=== PATIENT | male | born 1945 | race Caucasian/White ===

== ENCOUNTER 2023-05-18 00:35 | Emergency (ER) | payer OTHER, SELFPAY ==
[2023-05-18 00:36] VITALS: BMI 23.3
[2023-05-18 00:39] VITALS: BP 120/76
[2023-05-18 00:42] VITALS: BP 120/76
[2023-05-18 00:43] LABS: Glucose - Point of Care 178 mg/dl (70-99)
[2023-05-18 01:00] VITALS: BP 125/60
--- NOTE | 2023-05-18 01:08 | ED.GENMED ---
History of Present Illness
<SOCORRO Ayala - Last Filed: 05/18/23 01:25>
General
Chief Complaint: Weakness
Source: patient
Exam Limitations: none
Time Seen by Provider: 05/18/23 00:39
Nursing documentation reviewed up to this point in time: agreed with
Travel History
Have you had any contact with someone who has COVID-19?: No
Do you have any symptoms of coronavirus? Fever > 100 degrees, chills, cough, shortness of breath, sore throat, loss of taste or smell, muscle aches, or headache?: No
History of Present Illness
History of Present Illness:
patient is a 78 y/o male with PMH of pacemaker and pancreatic cancer presenting with weakness for the last few days. Patient states he fells a fully body weakness to the extent that it is difficult for him to walk. Patient admits to taking an
aspirin as 1pm yesterday with no relief. Patient admits to nausea with no episodes of vomiting. Patient admits to TAPIA associated that had mild relief with aspirin. Patient admits to dizziness that he describes as lightheadedness and feeling 'like he
is going to fall over.' Patient denies V/D/C, SOB, CP, fever, chills, palpitations. Patient admits that he had a Whipple procedure done 8 years ago. Since the time of the procedure he will have intermittent abdominal upset including irregular bowel
movements, increased gas and cramping. Patient admits that he has been having these symptoms earlier. patient has a long standing history with sepsis since his Whipple procedure and states there was a minor complication that makes his more
susceptible to bacteria.
Past History
<SOCORRO Ayala - Last Filed: 05/18/23 01:25>
Past History
ED Past Medical History: Cancer (Pancreatic, prostate), GERD, HTN, Hypercholesterolemia, IDDM and Other (Pancreatic tumor removed w Whipple procedure 2015)
ED Past Surgical History: Other (Whipple procedure 06/11/2015 at [facility]. 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
Social History
Tobacco: Former smoker
Alcohol: Daily
Drug: None
Personal:
Living: with family
Employment: Employed
Family History
Family History: Other (Noncontributory)
Review of Systems
<SOCORRO Ayala - Last Filed: 05/18/23 01:25>
Review of Systems
All Other Systems: Not applicable
Constitutional: Reports no symptoms
EENT: Reports no symptoms
Respiratory: Reports no symptoms
Cardiac: Reports no symptoms
ABD/GI: Reports nausea
: Reports no symptoms
Musculoskeletal: Reports no symptoms
Skin: Reports no symptoms
Neurological: Reports dizzy and weakness (generalized)
Endocrine: Reports no symptoms
Hematologic/Lymphatic: Reports no symptoms
Psychiatric: Reports no symptoms
Phy Exam
<SOCORRO Ayala - Last Filed: 05/18/23 01:25>
General Physical Exam
General Presentation: well appearing and no apparent distress
General Skin: warm and dry
General Habitus: normal
General Mental: alert
General Hydration: appears well hydrated
ENT Exam
ENT Exam: EOMI, pharynx normal, neck supple and normocephalic
Eye Exam
Eye Exam: PERRL, cornea clear and conjunctiva normal
Cardiovascular Exam
Cardiovascular Exam: regular rate/rhythm, no edema, no murmur and normal peripheral pulses
Pulmonary Exam
Pulmonary Exam: lungs clear, no respiratory distress, no rales, no crackles, no rhonchi, no stridor, no wheezing and no cough
Gastrointestinal Exam
Gastrointestinal Exam: normal bowel sounds, non tender, soft, no organomegaly, no pulsatile mass and non distended
Neurological Exam
Neurological Exam: alert, oriented x3, no motor deficits and speech normal
Musculoskeletal Exam
Musculoskeletal Exam: full ROM and no edema
Skin Exam
Skin Exam: normal color, warm/dry, no rash and no petechia
Psychiatric Exam
Psychiatric Exam: normal mood/affect
Course
<SOCORRO Ayala - Last Filed: 05/18/23 01:25>
Orders/Labs/Results
Orders:
Orders
05/18/23 00:40
Electrocardiogram (*1) Urgent
Reason for Study: Other
Other Reason for Exam: Possible Stroke
Bedside Glucose- Treatment ONCE
Cardiac Monitoring- Treatment ONCE
IV Insert/Care/Rem.- Treatment PRN
05/18/23 00:41
EKG- Treatment ONCE
05/18/23 00:55
Complete Blood Count/With Diff Urgent
Comprehensive Metabolic Panel Urgent
05/18/23 01:26
0.9% Sodium Chloride 1000 ml [Nss] 1,000 ml IV BOLUS
Acetaminophen [Tylenol] 1,000 mg PO NOW STA
05/18/23 01:34
COVID-19 Antigen Urgent
Source: Nasal Swab
Influenza A+B Rapid Molecular Urgent
BETSEY Source: Nasal Swab
Specimen Description:
05/18/23 01:38
CR Chest - 2 Views Urgent
Comment:
Reason For Exam: Weakness history of sepsis
05/18/23 01:41
Procalcitonin Urgent
PCT Algorithmm Indication: Sepsis
Blood Culture Q30M
BETSEY Source: Blood/Venous
Specimen Description:
05/18/23 02:01
Blood Culture Q30M
BETSEY Source: Blood/Venous
Specimen Description:
Abnormal Lab Results
05/18/23 05/18/23
00:41 00:55
RBC 4.01 L 10^6/uL
(4.70-6.10)
Hgb 12.6 L g/dL
(13.0-18.0)
Hct 38.4 L %
(39.0-52.0)
MCV 95.8 H fL
(80.0-94.0)
MCH 31.4 H pg
(27.0-31.0)
MCHC 32.8 L g/dL
(33.0-37.0)
MPV 11.2 H fL
(7.4-10.4)
BUN 22 H mg/dl
(9-20)
Glucose 199 H mg/dl
(70-99)
ALT 63 H U/L
(0-50)
POC Glucose 178 H mg/dl
(70-99)
05/18/23 00:55
05/18/23 00:55
Vital Signs
Initial and Last Documented VS:
Initial Vital Signs
BP
120/76
05/18/23 00:39
Last Documented Vital Signs
Temp Pulse Resp BP Pulse Ox
97.6 F 61 10 135/66 98
05/18/23 00:42 05/18/23 03:00 05/18/23 03:00 05/18/23 03:00 05/18/23 03:00
<Blayne Subramanian, DO - Last Filed: 05/18/23 03:11>
Orders/Labs/Results
Orders:
Orders
05/18/23 00:40
Electrocardiogram (*1) Urgent
Reason for Study: Other
Other Reason for Exam: Possible Stroke
Bedside Glucose- Treatment ONCE
Cardiac Monitoring- Treatment ONCE
IV Insert/Care/Rem.- Treatment PRN
05/18/23 00:41
EKG- Treatment ONCE
05/18/23 00:55
Complete Blood Count/With Diff Urgent
Comprehensive Metabolic Panel Urgent
05/18/23 01:26
0.9% Sodium Chloride 1000 ml [Nss] 1,000 ml IV BOLUS
Acetaminophen [Tylenol] 1,000 mg PO NOW STA
05/18/23 01:34
COVID-19 Antigen Urgent
Source: Nasal Swab
Influenza A+B Rapid Molecular Urgent
BETSEY Source: Nasal Swab
Specimen Description:
05/18/23 01:38
CR Chest - 2 Views Urgent
Comment:
Reason For Exam: Weakness history of sepsis
05/18/23 01:41
Procalcitonin Urgent
PCT Algorithmm Indication: Sepsis
Blood Culture Q30M
BETSEY Source: Blood/Venous
Specimen Description:
05/18/23 02:01
Blood Culture Q30M
BETSEY Source: Blood/Venous
Specimen Description:
Abnormal Lab Results
05/18/23 05/18/23
00:41 00:55
RBC 4.01 L 10^6/uL
(4.70-6.10)
Hgb 12.6 L g/dL
(13.0-18.0)
Hct 38.4 L %
(39.0-52.0)
MCV 95.8 H fL
(80.0-94.0)
MCH 31.4 H pg
(27.0-31.0)
MCHC 32.8 L g/dL
(33.0-37.0)
MPV 11.2 H fL
(7.4-10.4)
BUN 22 H mg/dl
(9-20)
Glucose 199 H mg/dl
(70-99)
ALT 63 H U/L
(0-50)
POC Glucose 178 H mg/dl
(70-99)
05/18/23 00:55
05/18/23 00:55
Vital Signs
Initial and Last Documented VS:
Initial Vital Signs
BP
120/76
05/18/23 00:39
Last Documented Vital Signs
Temp Pulse Resp BP Pulse Ox
97.6 F 61 10 135/66 98
05/18/23 00:42 05/18/23 03:00 05/18/23 03:00 05/18/23 03:00 05/18/23 03:00
<SOCORRO Ayala - Last Filed: 05/18/23 01:25>
MDM/Problems Addressed
Differential Diagnosis Includes:
sepsis
viral infection
MDM/Problems Addressed:
weakness
<Blayne Subramanian DO - Last Filed: 05/18/23 03:11>
MDM/Problems Addressed
Chronic conditions affecting care: Previous abdomnial surgery and Cancer
Acute Exacerbation and/or Progression of Chronic Illness: Previous abdomnial surgery and Cancer
<SOCORRO Ayala - Last Filed: 05/18/23 01:25>
*Critical Care Note
Total Time (30-74mins, 75-104mins- exclusive of procedures): Not Applicable
<Blayne Subramanian DO - Last Filed: 05/18/23 03:11>
*Pulse Oximetry
Patient hypoxic: no
*EKG
Interpreted by ED Provider?: Yes
Interpretation: abnormal
Comparison EKG: no comparison EKG present
Heart Rate: 78
Rate: normal
Rhythm: sinus
Ischemia: non-specific ST changes
*Supervisor Ovens Interpretation
Rate: normal
Interpretation: normal
Heart Rate: 78
Rhythm: sinus
<Blayne Subramanian DO - Last Filed: 05/18/23 03:11>
Update Note
Update Note:
3 AM patient resting comfortably, labs are noted chest x-ray noted of note normal white count he is afebrile low procalcitonin
Patient apparently did use of cannabis earlier today which certainly could be contributing to his weakness
ED Attending Note
<SOCORRO Ayala - Last Filed: 05/18/23 01:25>
-
Portions of this chart may have been created with voice recognition software.� Occasional wrong word or��sound alike� substitutions may have occurred due to the inherent limitations of voice recognition software.
<Blayne Subramanian DO - Last Filed: 05/18/23 03:11>
ED Attending Note
Patient seen and examined by attending physician: Yes
I performed the substantive portion of visit, reviewed & personally made and approve the management plan that is documented in note by myself or LARISSA.: Yes
ED Attending Note:
Seen with student examined independently prior records reviewed 78-year-old male history of pancreatic cancer status post Whipple procedure 8 years ago, has recurrent sepsis since then thought to be from the GI tract, immunized for COVID and flu the
had COVID about a month ago, day or 2 of fatigue, weakness body aches different than his prior episodes sepsis no cough no vomiting no dysuria or frequency no abdominal pain no documented fevers
Discharge Plan
Departure
Patient Disposition: Home (Routine Discharge)
Date of Disposition: 05/18/23
Time of Disposition: 03:09
Patient with high blood pressure during this ER visit?: No
Condition: Good
Discharge Problem:
Weakness
Instructions: Generalized Weakness (DC)
Prescriptions:
No Action
Metamucil Fiber Singles 1 PACKET powder in packet
1 packet PO NOON
rosuvastatin 5 MG tablet
5 mg PO DAILY
dicyclomine 10 MG capsule
10 mg PO BID
valsartan-hydrochlorothiazide [Diovan HCT] 80-12.5 mg Tablet
1 tab PO DAILY
Centrum Silver Men [phone] mcg Tablet
1 tab PO NOON
ibuprofen 200 mg Tablet
600 mg PO TIDPRN PRN (Reason: mild pain)
ketoconazole 2 % Cream
1 applic TOPICAL BID
simethicone 80 mg Tablet,Chewable
80 mg PO ACHS PRN (Reason: gas)
Creon 24,000-76,000 -120,000 unit Capsule,Delayed Release(Dr/Ec)
3 cap PO MEALS
ciprofloxacin HCl 500 mg Tablet
500 mg PO BID Qty: 8 0RF
Referrals:
Zach Lemos I., [Family Provider] - Next open appointment
Activity Restrictions/Additional Instructions:
Drink plenty of fluids Tylenol or ibuprofen for pain
Return to the ER fever chills or any other concerns
Interventions
Interventions:
*Risk Screen - Suicide Last Done: 05/18/23 00:42
*General Assessment Last Done: 05/18/23 00:42
*Neglect/Abuse Screening Last Done: 05/18/23 00:42
ED- Fall Risk Assessment Last Done: 05/18/23 00:42
*ED COVID-19 Vaccine History Last Done: 05/18/23 00:42
ED- Cardiac Assessment Last Done: 05/18/23 00:49
ED- Neurological Assessment Last Done: 05/18/23 00:49
ED- Pulmonary Assessment Last Done: 05/18/23 00:49
Discharge Date and Time
Print Language: HEBREW
[2023-05-18 01:16] LABS: % Basophils 1.1 % (0-2); % Eosinophils 3.8 % (0-6); % Immature Granulocytes 0.5 % (0-0.5); % Lymphocytes 45.6 % (20.5-51.1); % Monocytes 6.5 % (1.7-9.3); % Neutrophils 42.5 % (42.2-75.2); Absolute Basophils 0.1 10^3/uL (0-0.2); Absolute Eosinophils 0.3 10^3/uL (0-0.7); Absolute Monocytes 0.4 10^3/uL (0.1-0.6); Absolute Neutrophils 2.8 10^3/uL (1.4-6.5); Hematocrit 38.4 % (39.0-52.0); Hemoglobin 12.6 g/dL (13.0-18.0); Mean Corp Hgb Conc. 32.8 g/dL (33.0-37.0); Mean Corpuscular Hgb 31.4 pg (27.0-31.0); Mean Corpuscular Volume 95.8 fL (80.0-94.0); Mean Platelet Volume 11.2 fL (7.4-10.4); Nucleated Red Blood Cells % 0 % (-); Platelet Count 239 10^3/uL (130-400); Red Blood Cell Count 4.01 10^6/uL (4.70-6.10); Red Cell Dist. Width 13.2 % (11.5-14.5); White Blood Cell Count 6.6 10^3/uL (4.8-10.8)
[2023-05-18 01:25] LABS: ALT (SGPT) 63 U/L (0-50); AST (SGOT) 59 U/L (17-59); Albumin 3.9 g/dl (3.5-5.0); Alkaline Phosphatase 80 U/L (38-126); Blood Urea Nitrogen 22 mg/dl (9-20); Calcium 9.2 mg/dl (8.4-10.2); Carbon Dioxide 22 mmol/L (22-30); Chloride 104 mmol/L (98-107); Estimated Creatinine Clearance 61 ml/min; Glucose 199 mg/dl (70-99); Potassium 4.6 mmol/L (3.5-5.1); Sodium 138 mmol/L (135-145); Total Bilirubin 0.3 mg/dl (0.2-1.3); Total Protein 6.5 g/dl (6.3-8.2); eGFR > 60.00
[2023-05-18] MEDS: NSS 1000 IV (01:42)
[2023-05-18] MEDS: TYLENOL 1000 MG PO (01:43)
[2023-05-18 02:14] LABS: COVID-19 Antigen Negative (Negative)
[2023-05-18 02:16] VITALS: BP 137/66
[2023-05-18 02:24] LABS: Procalcitonin < 0.05 ng/ml (0.0-0.25)
[2023-05-18 03:00] VITALS: BP 135/66
[2023-05-18 03:09] VITALS: BP 142/73
== END 2023-05-18 03:38 | disposition home or self-care (01) ==
LOC: EMR 00:35
PROVIDERS: EMERGENCY PHYSICIAN Emergency Medicine; FAMILY PHYSICIAN Internal Medicine
DX: R53.1 Weakness (principal); K21.9 Gastro-esophageal reflux disease without esophagitis; I10 Essential (primary) hypertension; E78.00 Pure hypercholesterolemia, unspecified; E11.9 Type 2 diabetes mellitus without complications; Z85.820 Personal history of malignant melanoma of skin; Z87.891 Personal history of nicotine dependence; Z90.411 Acquired partial absence of pancreas; Z90.49 Acquired absence of other specified parts of digestive tract; Z90.79 Acquired absence of other genital organ(s); Z95.0 Presence of cardiac pacemaker
CPT/HCPCS: 99283; 96360; 71046; 80053; 82962; 84145; 85025; 87040; 87502; 87811; 93005

== ENCOUNTER → 2023-07-15 07:47 | Outpatient (REF) | payer OTHER, SELFPAY | LOC: HWRAD 07:47 | PROVIDERS: ATTENDING PHYSICIAN Internal Medicine | DX: R53.1 Weakness (principal); K86.89 Other specified diseases of pancreas; R10.13 Epigastric pain | CPT/HCPCS: 76700 ==

== ENCOUNTER 2023-07-19 19:46 | Inpatient (IN) | payer OTHER, SELFPAY ==
[2023-07-19 15:58] VITALS: BMI 25.9
[2023-07-19 16:00] VITALS: BP 144/74
[2023-07-19 17:01] LABS: % Basophils 0.6 % (0-2); % Eosinophils 0.3 % (0-6); % Immature Granulocytes 0.4 % (0-0.5); % Lymphocytes 11.4 % (20.5-51.1); % Monocytes 9.5 % (1.7-9.3); % Neutrophils 77.8 % (42.2-75.2); Absolute Lymphocytes 0.8 10^3/uL (1.2-3.4); Absolute Monocytes 0.7 10^3/uL (0.1-0.6); Absolute Neutrophils 5.3 10^3/uL (1.4-6.5); Mean Corp Hgb Conc. 33.3 g/dL (33.0-37.0); Mean Corpuscular Volume 92.9 fL (80.0-94.0); Mean Platelet Volume 11.9 fL (7.4-10.4); Nucleated Red Blood Cells % 0 % (-); Platelet Count 198 10^3/uL (130-400); Red Blood Cell Count 4.52 10^6/uL (4.70-6.10); Red Cell Dist. Width 13.2 % (11.5-14.5); White Blood Cell Count 6.9 10^3/uL (4.8-10.8)
[2023-07-19 17:08] LABS: Lactic Acid 1.7 mmol/L (0.7-2.0)
[2023-07-19 17:11] VITALS: BP 167/76
[2023-07-19 17:11] LABS: ALT (SGPT) 40 U/L (0-50); AST (SGOT) 49 U/L (17-59); Albumin 3.9 g/dl (3.5-5.0); Alkaline Phosphatase 84 U/L (38-126); Blood Urea Nitrogen 22 mg/dl (9-20); Calcium 8.9 mg/dl (8.4-10.2); Carbon Dioxide 24 mmol/L (22-30); Chloride 103 mmol/L (98-107); Glucose 206 mg/dl (70-99); Sodium 136 mmol/L (135-145); Total Bilirubin 0.6 mg/dl (0.2-1.3); Total Protein 6.5 g/dl (6.3-8.2); eGFR > 60.00
[2023-07-19] MEDS: TYLENOL 650 MG PO (17:47)
[2023-07-19 18:48] LABS: Urine Albumin Negative (Neg - Trace); Urine Bilirubin Negative (Negative); Urine Character Clear (Clear); Urine Color Yellow; Urine Glucose 3+ (Negative); Urine Ketone Negative (Negative); Urine Leukocyte Negative (Negative); Urine Nitrite Negative (Negative); Urine Occult Blood Trace (Negative); Urine Specific Gravity 1.015 (<1.030); Urine Urobilinogen Negative (Neg - 1+)
--- NOTE | 2023-07-19 18:49 | ED.GENMED ---
History of Present Illness
General
Chief Complaint: Fever
Source: patient
Exam Limitations: none
Time Seen by Provider: 07/19/23 17:01
Nursing documentation reviewed up to this point in time: agreed with
Travel History
Have you had any contact with someone who has COVID-19?: No
Do you have any symptoms of coronavirus? Fever > 100 degrees, chills, cough, shortness of breath, sore throat, loss of taste or smell, muscle aches, or headache?: No
History of Present Illness
History of Present Illness:
Patient presents to ED secondary to sudden onset of chills and not feeling well since yesterday. Patient reports fever 101 today. Denies coughing. Denies headache. Denies sore throat. Denies vomiting. Denies diarrhea. Denies rash. Denies
neck pain. Denies recent sick contact. Unfortunately, patient has had number of similar symptoms in the past, and treated for nonspecific sepsis, including February of this year.
Past History
Past History
ED Past Medical History: Cancer (Pancreatic, prostate), GERD, HTN, Hypercholesterolemia, IDDM and Other (Pancreatic tumor removed w Whipple procedure 2015)
ED Past Surgical History: Other (Whipple procedure 06/11/2015 at [facility]. 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
Social History
Tobacco: Former smoker
Alcohol: Daily
Drug: None
Personal:
Living: with family
Employment: Employed
Family History
Family History: Other (Noncontributory)
Review of Systems
Review of Systems
Allergies reviewed?: Yes
All Other Systems: ROS reviewed and negative except as documented in HPI and ROS
Constitutional: Reports fever and chills
EENT: Reports no symptoms
Respiratory: Reports no symptoms
Cardiac: Reports no symptoms
ABD/GI: Reports no symptoms
: Reports no symptoms
Musculoskeletal: Reports no symptoms
Skin: Reports no symptoms
Neurological: Reports no symptoms
Phy Exam
Physical Exam
Physical Exam:
Physical Exam
General: no apparent distress, not acutely ill. febrile.
Head: nc/at. eomi
Neck: supple. no meningeal signs.
Heart: s1/s2 regular rate and rhythm, no murmur. equal radial pulses.
Lungs: no acute respiratory distress. clear bilaterally
Abdomen: normal bowel sounds. not tender.
Neuro: alert and oriented. no focal neurological deficits
Skin: no rash
Psychiatric: well kept. interactive and cooperative
Extremities: no edema. no calf tenderness.
Course
Orders/Labs/Results
Orders:
Orders
07/19/23 16:09
Complete Blood Count/With Diff Urgent
Comprehensive Metabolic Panel Urgent
Lactate Level [Lactic Acid] Urgent
07/19/23 17:16
Blood Culture Q30M
BETSEY Source: Blood/Venous
Specimen Description:
Blood Culture Q30M
BETSEY Source: Blood/Venous
Specimen Description:
07/19/23 17:17
Urinalysis Reflex To Culture Urgent
Date Specimen was Collected: 07/19/23
Time Specimen was Collected: 17:15
Urine Microscopic Reflex Cult Urgent
07/19/23 17:33
Rectal Temp- Treatment ONCE
07/19/23 17:34
Acetaminophen [Tylenol] 650 mg PO NOW STA
07/19/23 18:53
0.9% Sodium Chloride 1000 ml [Nss] 1,000 ml IV BOLUS
CefTRIAXone [Rocephin] 1,000 mg IV NOW STA
07/19/23 19:28
CT Abd/pel W Iv And Oral Contr Routine
Reason For Exam: abdominal pain. with oral and IV contrast
07/19/23 19:29
Admit/Transfer Patient As Directed
Co-Sign Provider:
Level of Care: Inpatient admission
Assign to:: Medical/Surgical
Physician / Group: elva parker
Diagnosis: fever
Reason for Hospitalization: fever
Expected length of stay greater than two midnights?: Yes
ELOS- Estimated Length of Stay in days: 3
I certify the patient meets the requirements for IP care: Yes
07/19/23 19:30
Code Status As Directed
Resuscitation Status: Full Code
07/19/23 19:36
COVID-19 Antigen Stat
Source: Nasal Swab
Influenza A+B Rapid Molecular Stat
BETSEY Source: Nasal Swab
Specimen Description:
Abnormal Lab Results
07/19/23 07/19/23
16:09 17:17
RBC 4.52 L 10^6/uL
(4.70-6.10)
MPV 11.9 H fL
(7.4-10.4)
Absolute Lymphs (auto) 0.8 L 10^3/uL
(1.2-3.4)
Absolute Monos (auto) 0.7 H 10^3/uL
(0.1-0.6)
Neutrophils % 77.8 H %
(42.2-75.2)
Lymphocytes % 11.4 L %
(20.5-51.1)
Monocytes % 9.5 H %
(1.7-9.3)
BUN 22 H mg/dl
(9-20)
Glucose 206 H mg/dl
(70-99)
Ur Occult Blood Reflex Trace A
(Negative)
Urine RBC 3-6 A /HPF
(0-2)
Urine Bacteria (Reflex) Few A
(Negative)
Urine Glucose 3+ A
(Negative)
07/19/23 16:09
07/19/23 16:09
Vital Signs
Initial and Last Documented VS:
Initial Vital Signs
Temp Pulse Resp BP Pulse Ox
99.6 F 93 18 144/74 97
07/19/23 16:00 07/19/23 16:00 07/19/23 16:00 07/19/23 16:00 07/19/23 16:00
Last Documented Vital Signs
Temp Pulse Resp BP Pulse Ox
100.2 F 82 20 133/71 96
07/19/23 19:29 07/19/23 19:29 07/19/23 19:29 07/19/23 19:29 07/19/23 19:29
MDM/Problems Addressed
MDM/Problems Addressed:
History and exam concerning for recurrent bacteremia.
Discussed with (ID). Based on culture sensitivity from February 2023, recommend starting patient on Rocephin.
Blood culture pending
*Critical Care Note
Total Time (30-74mins, 75-104mins- exclusive of procedures): Not Applicable
ED Attending Note
-
Portions of this chart may have been created with voice recognition software.� Occasional wrong word or��sound alike� substitutions may have occurred due to the inherent limitations of voice recognition software.
Discharge Plan
Departure
Patient Disposition: Admit
Date of Disposition: 07/19/23
Time of Disposition: 19:05
Presentation/result/management discussed w/ accepting MD/DO: Hospitalist
Discharge Problem:
Fever
Interventions
Interventions:
*Risk Screen - Suicide Last Done: 07/19/23 16:00
*Neglect/Abuse Screening Last Done: 07/19/23 16:00
ED- Fall Risk Assessment Last Done: 07/19/23 19:30
*ED COVID-19 Vaccine History Last Done: 07/19/23 16:00
ED- Neurological Assessment Last Done: 07/19/23 19:30
ED-Skin Assessment Last Done: 07/19/23 19:30
[2023-07-19 18:58] LABS: Urine Bacteria Few (Negative); Urine White Cell 0-2 /HPF (0-5)
--- NOTE | 2023-07-19 19:11 | HPS.HSE ---
Addendum entered and electronically signed by Danielle Swanson MD 07/19/23 19:36:
see my update note for addendum
Original Note:
Family Physician
-
Family Physician: Zach Lemos
Chief Complaint
-
fever
generalized weakness
History of Present Illness
78-year-old with past medical history for pancreatic cancer, prostate cancer, GERD, hypertension, hyperlipidemia, diabetes presented to us with generalized weakness from yesterday. Today he started having chills shaking and fever of 101.6 at home.
Patient complained of headache. Denied dizziness or syncopal episode. Patient denied chest pain., Short of breath. Patient denied any abdominal pain, nausea, vomiting, diarrhea. Patient denied dysuria hematuria 3 weeks ago he had an mid
abdominal pain for a day, which now subsided.
Upon arrival noted to have fever 100.5. And administering ceftriaxone and fluids in ER. Admitting for further management
Medical History
Past Medical History
Past Medical History: Reports Other
Additional Past Medical History:
Hypertension
Neuropathy
Type 2 diabetes
Hyperlipidemia
Kidney stones
Sick sinus syndrome
Pancreatic cancer
-Prostate cancer
Past Surgical History: Reports Other
Additional Past Surgical History:
Pacemaker
Whipple procedure
Right lower lip granuloma excision
Melanoma removal
Cardiac ablation
Colon resection
Social History
Tobacco: Non-smoker
Alcohol: None
Drug: None
Personal:
Living: With Family
Family History
Family History: Not pertinent
Allergies / Home Medications
Allergies reflects when Allergies were last updated in [employer].
Home Medications with original date entered in [employer]
Allergy/Medication List:
Allergies
Allergy/AdvReac Type Severity Reaction Status Date / Time
No Known Allergies Allergy Verified 07/19/23 16:00
Home Medications
psyllium husk (aspartame) 3.4 gram oral powder packet (Metamucil Fiber Singles) 1 packet PO NOON Constipation 06/03/18
dicyclomine 10 mg capsule 10 mg PO BID Gastrointestinal issue 04/18/20
valsartan 80 mg-hydrochlorothiazide 12.5 mg tablet (Diovan HCT) 1 tab PO DAILY Blood pressure 05/29/22
nzindvgi-ah-rfkvu 300 mcg-K 60 mcg-lycop 600 mcg-lutein 300 mcg tablet (Centrum Silver Men) 1 tab PO NOON Supplement 11/09/22
ibuprofen 200 mg tablet 600 mg PO TIDPRN PRN mild pain 02/15/23
ketoconazole 2 % topical cream 1 applic topical BID apply to face 02/15/23
yvbsku-flwvmcsv-nplkzed 24,000-76,000-120,000 unit capsule,delayed rel (Creon) 3 cap PO MEALS Gastrointestinal Issue 02/15/23
simethicone 80 mg chewable tablet 80 mg PO ACHS PRN gas 02/15/23
Review of Systems
-
Constitutional: Reports Fever and Chills
EENT: Reports No Symptoms
Respiratory: Reports No Symptoms
Cardiac: Reports No Symptoms
Abdomen/GI: Reports No Symptoms
: Reports No Symptoms
Musculoskeletal: Reports No Symptoms
Skin: Reports No Symptoms
Neurological: Reports No Symptoms
Endocrine: Reports No Symptoms
Hematologic/Lymphatic: Reports No Symptoms
Psych: Reports No Symptoms
Physical Exam
Vital Signs
Vital Signs
Temp Pulse Resp BP Pulse Ox
102.5 F H 83 15 167/76 97
07/19/23 17:38 07/19/23 17:09 07/19/23 17:09 07/19/23 17:11 07/19/23 17:09
Physical Exam
General: Well Developed, Well Nourished and No Apparent Distress
HEENT: NormoCephalic, Moist mucous membranes and Atraumatic
Respiratory: Clear
Cardiac: S1/S2 and Regular Rhythm; No Murmur or Rub
GI: Soft, Non Tender, Non Distended and Normal Bowel Sounds; No Organomegaly
Rectal: Deferred by Provider
Musculoskeletal: No Clubbing, No Cyanosis and No Edema
Skin: No Rash
Neuro: AO x 3 and Nonfocal/grossly intact
Psych: Calm
Laboratory Results
-
07/19/23 16:09
07/19/23 16:09
Laboratory Results
Lactic Acid 1.7 mmol/L (0.7-2.0) 07/19/23 16:09
Total Bilirubin 0.6 mg/dl (0.2-1.3) 07/19/23 16:09
AST 49 U/L (17-59) 07/19/23 16:09
ALT 40 U/L (0-50) 07/19/23 16:09
Alkaline Phosphatase 84 U/L (38-126) 07/19/23 16:09
Data Reviewed
-
Lab Data: Labs Reviewed by me
Impression/Plan
-
# Fever unclear cause
-hxt of E coli bacteremia
-temp of 102.5
-UA negative
-blood culture sent from ER
-ceftriaxone continued
-Tylenol as needed for fever
#abdominal pain
-US Extremely limited study in part due to prior surgery and especially due to loop of bowel obscuring the organs of the upper abdomen including the liver. Cannot exclude right lobe hepatic space-occupying lesion versus geographic pattern of fatty
infiltration. Recommend CT or MRI for more complete evaluation.Prior cholecystectomy and known prior Whipple procedure. Pancreas, common bile duct, portions of liver and proximal abdominal aorta significantly obscured.
-obtain CT of abdomen pelvis with iv and oral contrast
-ctm
#pancreatic cancer s/p Whipple
- continue Creon
#Type 2 DM with hyperglycemia
- diet controlled
-Sliding scale
-Carb controlled diet
#prostate cancer s/p XRT
#GERD
#Essential HTN
-Valsartan/HCTZ continued
#hx of SVT s/p PPM
DVT ppx: Lovenox
Code: Full
[2023-07-19] MEDS: NSS 1000 IV ×2 (19:20→21:27)
[2023-07-19] MEDS: ROCEPHIN 1000 MG IV (19:20)
[2023-07-19 19:29] VITALS: BP 133/71
--- NOTE | 2023-07-19 19:36 | W.PN.UPDATE ---
Update Note
Progress Note Update
I saw and examined the patient.
The FINANCIAL SALES PROFESSIONAL Benny's note was reviewed and I agree with the note.
Comment: 78 y/o M hx of pancreatic cancer s/p Whipple, hx of prsotate cancer, GERD, HTN, HLD presents with weakness and fever. Fever of 101.6 associated with chills. He also reports headache. No other complaints. 1 week ago he did briefly have
mid-abdominal pain but that is now resolved.
In ER, he was found to have fever and was given IVF. ID was contacted and recommended Rocephin. Patient was previously admitted in February with bacteremia felt to be translocation in GI tract related to prior Whipples.
Physical Exam
General: Well Developed, Well Nourished and No Apparent Distress
HEENT: NormoCephalic, Moist mucous membranes and Atraumatic
Respiratory: Clear
Cardiac: S1/S2 and Regular Rhythm; No Murmur or Rub
GI: Soft, Non Tender, Non Distended and Normal Bowel Sounds; No Organomegaly
Rectal: Deferred by Provider
Musculoskeletal: No Clubbing, No Cyanosis and No Edema
Skin: No Rash
Neuro: AO x 3 and Nonfocal/grossly intact
Psych: Calm
Assessment/Plan: as per FINANCIAL SALES PROFESSIONAL Benny's note. Will continue IVF and IV Rocephin as per ID. consult ID. add urine culture for completeness. With recent Abd pain and US showing possible hepatic space occupying lesion, will obtain CT tonight. This is the 5th
or 6th occurrence of bacteremia for this patient since his Whipple's procedure; I recommended he follow up with ROGERIO (last visit was 5 years ago) to determine if any portal of entry of bacteria along Whipple operative sites that might be intervened
on.
[2023-07-19 20:12] LABS: COVID-19 Antigen Negative (Negative)
[2023-07-19 20:30] VITALS: BP 129/64
[2023-07-19] MEDS: OMNIPAQUE 50 ML PO (20:32)
[2023-07-19 21:16] VITALS: BMI 22.6
[2023-07-19 21:20] VITALS: BP 142/71
[2023-07-19] MEDS: BENTYL 10 MG PO (21:27)
[2023-07-19 21:28] LABS: Glucose - Point of Care 194 mg/dl (70-99)
[2023-07-19] MEDS: NIZORAL 2% CREAM 1 APPLIC TOPICAL (22:28)
[2023-07-19 23:08] VITALS: BP 146/72
--- NOTE | 2023-07-20 06:06 | W.PN.HOSP.TC ---
Today's Communication/Plan
-
cont abx
follow up culture sensitivities
repeat blood cultures
fever control
glycemic control
Assessment / Plan
Assessment / Plan
Physical Exam
General: Well Developed, Well Nourished and No Apparent Distress
HEENT: NormoCephalic, Moist mucous membranes and Atraumatic
Respiratory: Clear
Cardiac: S1/S2 and Regular Rhythm; No Murmur or Rub
GI: Soft, Non Tender, Non Distended and Normal Bowel Sounds; No Organomegaly
Musculoskeletal: No Clubbing, No Cyanosis and No Edema
Skin: No Rash
Neuro: AO x 3 and Nonfocal/grossly intact
Psych: Calm
HPI: 78M Hx pancreatic cancer s/p Whipple, prostate cancer, GERD, hypertension, hyperlipidemia, NIDDM p/w generalized weakness 1 day duration, chills, shaking and fever of 101.6 at home. Patient also reported headache. Denied dizziness, syncopal
episode, chest pain, shortness of breath, abdominal pain, nausea, vomiting, diarrhea, dysuria, or hematuria. ED evaluation noted fever high 102.5, no significant leukocytosis noted.
# Fever 2/2 E coli bacteremia
-temp high 102.5 since resolved
-UA negative
-blood culture appreciated prelim E. coli, repeat blood cultures obtained
-Tylenol as needed for fever
-ID eval appreciated, 5th GNR bacteremia since Whipple procedure 2016, cont ceftriaxone, follow up with [facility] surgeons recommended.
#abdominal pain resolved
-US Extremely limited study in part due to prior surgery and especially due to loop of bowel obscuring the organs of the upper abdomen including the liver. Cannot exclude right lobe hepatic space-occupying lesion versus geographic pattern of fatty
infiltration. Recommend CT or MRI for more complete evaluation.Prior cholecystectomy and known prior Whipple procedure. Pancreas, common bile duct, portions of liver and proximal abdominal aorta significantly obscured.
-CT abd/pelvis appreciated no acute abn's
-ctm
#pancreatic cancer s/p Whipple
- continue Creon
#Type 2 DM with hyperglycemia
-A1c 7.4
-Sliding scale
-Carb controlled diet
#prostate cancer s/p XRT
#GERD
#Essential HTN
-Valsartan/HCTZ continued
#hx of SVT s/p PPM
DVT ppx: Lovenox
Code: Full
I spent a total of 55 minutes with the patient or on the floor. More than 50% of this time involved counseling and coordination of care.
Anticipated Discharge: 24 - 48 hours
Subjective/Interval History
-
Date of Service: July 20, 2023
Seen and examined at bedside in no acute distress sitting up comfortably in bed. Denies new acute issues at this time. Overall reports feeling well.
Objective Data
-
Labs:
Laboratory Results
07/20/23
06:00
WBC Pending
Hgb Pending
Hct Pending
Plt Count Pending
Sodium Pending
Potassium Pending
Chloride Pending
Carbon Dioxide Pending
BUN Pending
Creatinine Pending
Glucose Pending
Calcium Pending
Vital Signs:
Vital Signs
Temp Pulse Resp BP Pulse Ox
98.1 F 74 18 146/72 99
07/19/23 23:08 07/19/23 23:08 07/19/23 23:08 07/19/23 23:08 07/19/23 23:08
--- NOTE | 2023-07-20 06:39 | PTCARENOTE ---
Essence Leo [employer]UMENT [employer] notified of blood culture results. Cultures positive for gram negative bacilli.
[2023-07-20 06:43] LABS: Hematocrit 36.2 % (39.0-52.0); Hemoglobin 12.6 g/dL (13.0-18.0); Mean Corp Hgb Conc. 34.8 g/dL (33.0-37.0); Mean Corpuscular Hgb 31.1 pg (27.0-31.0); Mean Corpuscular Volume 89.4 fL (80.0-94.0); Mean Platelet Volume 11.5 fL (7.4-10.4); Platelet Count 161 10^3/uL (130-400); Red Blood Cell Count 4.05 10^6/uL (4.70-6.10); Red Cell Dist. Width 13.2 % (11.5-14.5); White Blood Cell Count 5.2 10^3/uL (4.8-10.8)
[2023-07-20 07:02] LABS: Blood Urea Nitrogen 18 mg/dl (9-20); Calcium 8.2 mg/dl (8.4-10.2); Carbon Dioxide 23 mmol/L (22-30); Chloride 107 mmol/L (98-107); Estimated Creatinine Clearance 74 ml/min; Glucose 142 mg/dl (70-99); Sodium 137 mmol/L (135-145); eGFR > 60.00
[2023-07-20 07:07] VITALS: BP 143/90
[2023-07-20 07:35] LABS: Glucose - Point of Care 145 mg/dl (70-99)
[2023-07-20] MEDS: NOVOLOG FLEXPEN-LOW RESISTANCE SC (08:28)
[2023-07-20] MEDS: DIOVAN 80 MG PO (08:55)
[2023-07-20] MEDS: BENTYL 10 MG PO ×2 (08:55→20:19)
[2023-07-20] MEDS: ZENPEP DELAYED RELEASE CAPSULE 3 CAPSULE PO ×3 (08:55→17:17)
[2023-07-20] MEDS: ORETIC 12.5 MG PO (08:55)
[2023-07-20] MEDS: NIZORAL 2% CREAM TOPICAL ×2 (08:56→20:18)
--- NOTE | 2023-07-20 09:24 | CON.ID ---
Consultation
-
Date/Time Consultation Requested: 07/19/2023 2109
Date/Time Consultation Performed: 07/20/2023 1220
Requesting Provider: Dr. Louann Slaughter
Performing Provider: Dr. Priti Osullivan
Reason for Consultation: Chills, hx recurrent GNR bacteremia
Chief Complaint / Past History
Chief Complaint
fever and chills
History of Present Illness
87 year old with history of pancreatic cancer s/p Whipple, prostate cancer s/p XRT, pacemaker placement, recurrent GNR bacteremia who presented to ED last night due to 1 day history of shaking chills, ,malaise, fever 101. Had episode of abdominal
pain last week with normal abd US. No change in bowel habits. No nausea or vomiting. Pt reports he has not followed up at [facility] regarding these recurrent GNR bacteremia since Whipple procedure. T=102.5 in ED. Ceftriaxone started.
Past History
Additional Past Medical History:
(pancreatic cancer s/p Whipple, IDDM, prostate cancer s/p XRT, GERD, HTN, HLD, hx of SVT
Additional Past Surgical History:
IDDM
Neuropathy
SVT s/p Pacemaker
Pancreatic CA s/p Whipple 2016 at [facility]
H/o Klebsiella/Aeromonas bacteremia 2019; 3 Klebsiella bacteremia 04/14/17; E coli bacteremia 2017, 02/2023, 07/2023
Diverticulitis and is status post bowel resection for diverticulitis (2000)
HTN
HLD
nephrolithiasis
Melanoma excision
Prostate CA s/p XRT
Right hip fracture gamma nailing
Allergy History:
No Known Allergies Allergy (Verified 07/19/23 16:00)
Medications Reviewed: Yes
Current Antibiotics:
ceftriaxone
Social History
Tobacco: Former Smoker
Alcohol: None
Drug: None
Personal:
Family History
Family History: Not Pertinent
Review of Systems
Review of Systems
General: Fever, Chills and Change in Appetite
HEENT: Negative Sinus Problems or Headache
Cardiovascular: Negative Chest Pain
Respiratory: Negative Dyspnea or Cough
Gasteroenterology: Negative Nausea or Vomiting
Genital / Urological: Negative Dysuria or Flank Pain
Endocrine: Weakness
Skin / Hair / Nails: Negative Rash
Neurological: Negative Headache or Dizziness
Vital Signs
Temp Pulse Resp BP Pulse Ox
97.4 F 82 16 143/90 98
07/20/23 07:07 07/20/23 07:07 07/20/23 07:07 07/20/23 07:07 07/20/23 07:07
Selected Entries
07/19/23
17:38
Temp 102.5 F H
Physical Exam
Physical Exam
Constitutional: No Acute Distress and Comfortable
Cardiovascular: Regular Rate and S1/S2
Pulmonary: Clear
Gastrointestinal: Soft, Non Tender, Non Distended and Normal Bowel Sounds
Genito-Urinary: Negative CVA Tenderness
Extremities: Negative Edema
Musculoskeletal: Negative Spinal Tenderness
Neurological: AO x 3
Lab / Diagnostic Study Results
07/20/23 06:20
07/20/23 06:20
Abs Immat Gran (auto) 0.0 10^3/uL (0-0.05) 07/19/23 16:09
Absolute Neuts (auto) 5.3 10^3/uL (1.4-6.5) 07/19/23 16:09
Absolute Lymphs (auto) 0.8 10^3/uL (1.2-3.4) L 07/19/23 16:09
Absolute Monos (auto) 0.7 10^3/uL (0.1-0.6) H 07/19/23 16:09
Absolute Basos (auto) 0.0 10^3/uL (0-0.2) 07/19/23 16:09
Immature Gran % 0.4 % (0-0.5) 07/19/23 16:09
Neutrophils % 77.8 % (42.2-75.2) H 07/19/23 16:09
Lymphocytes % 11.4 % (20.5-51.1) L 07/19/23 16:09
Monocytes % 9.5 % (1.7-9.3) H 07/19/23 16:09
Eosinophils % 0.3 % (0-6) 07/19/23 16:09
Basophils % 0.6 % (0-2) 07/19/23 16:09
Lactic Acid 1.7 mmol/L (0.7-2.0) 07/19/23 16:09
Ur Squamous Epith Cells 3-5 /LPF (Few) 07/19/23 17:17
Microbiology Results
Micro:
07/19/23 17:16 Blood Culture - Preliminary
Blood/Venous Positive culture in progress
Gram Stain - Final
07/19/23 17:16 Blood Culture - Preliminary
Blood/Venous Positive culture in progress
Gram Stain - Preliminary
07/19/23 17:17 Urine Culture - Pending
Urine
07/19/23 19:36 Influenza Types A & B (JAZ) - Final
Nasal Swab Negative for Influenza A & B, NAAT
Negative results must be combined with clinical observations
and patient history.
Nucleic Acid Amplification test (NAAT)performed on the
[employer] platform.
07/19/23 CT a/p with IV and oral contrast: No CT evidence for an acute inflammatory process in the abdomen or pelvis. Stable chronic findings, as detailed above.
Assessment / Plan
# Fever
# Recurrent E. coli bacteremia
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
- 2016, 2018 Colonoscopies mild diverticulosis, 2 small polyps
- Suspect biliary/Whipple source with intermittent obstruction/spasms
- Recommend he follow-up at [facility] surgeons for re-evaluation
-Continue ceftriaxone for now.
-Repeat blood cx's.
[2023-07-20 09:42] LABS: Glycohemoglobin (HgbA1c) 7.4 % (4.0-5.6)
--- NOTE | 2023-07-20 10:37 | PTCARENOTE ---
Notified provider via TT of patient's positive BC results.
[2023-07-20] MEDS: METAMUCIL, KONSYL 1 PACKET PO (10:40)
[2023-07-20] MEDS: NSS 1000 IV ×2 (10:40→22:15)
[2023-07-20 11:46] LABS: Glucose - Point of Care 196 mg/dl (70-99)
[2023-07-20] MEDS: NOVOLOG FLEXPEN-LOW RESISTANCE 1 UNITS SC ×2 (12:58→17:18)
--- NOTE | 2023-07-20 14:59 | CM ---
Met with patient at bedside; initial assessment completed
Hx: Pancreatic CA, Whipple Procedure
Pharmacy verified: [facility], [facility], [place]
Patient reported that he and live in a multilevel home; daughter and 2 grandchildren currently living with them. 1 step to enter; 13 steps between floors; railings present; powder room on the 1st floor; 2nd floor bath has Stall shower
PLOF: active; performs in community theatre; independent w/ ambulation, stairs, and ADLs; drives
SNF/Rehab/Home Health utilization history: rehab [facility] 05/2022; [facility]
Transportation: will provide ride home
Plan: Goal is to go home when medically stable; CM will monitor for DC needs
[2023-07-20 16:01] VITALS: BP 159/78
[2023-07-20 16:48] LABS: Glucose - Point of Care 176 mg/dl (70-99)
[2023-07-20] MEDS: ROCEPHIN 1000 MG IV (17:17)
[2023-07-20] MEDS: LOVENOX 40 MG SC (17:17)
[2023-07-20] MEDS: STERILE WATER FOR INJECTION 10 ML IV (17:18)
[2023-07-20 21:25] LABS: Glucose - Point of Care 235 mg/dl (70-99)
[2023-07-20 23:00] VITALS: BP 140/63
[2023-07-21 07:00] VITALS: BP 145/71
[2023-07-21 07:35] LABS: Hematocrit 33.1 % (39.0-52.0); Hemoglobin 11.2 g/dL (13.0-18.0); Mean Corp Hgb Conc. 33.8 g/dL (33.0-37.0); Mean Corpuscular Hgb 30.9 pg (27.0-31.0); Mean Corpuscular Volume 91.4 fL (80.0-94.0); Mean Platelet Volume 11.5 fL (7.4-10.4); Platelet Count 152 10^3/uL (130-400); Red Blood Cell Count 3.62 10^6/uL (4.70-6.10); White Blood Cell Count 4.6 10^3/uL (4.8-10.8)
[2023-07-21 07:47] LABS: Glucose - Point of Care 142 mg/dl (70-99)
[2023-07-21 07:47] LABS: Blood Urea Nitrogen 15 mg/dl (9-20); Calcium 7.9 mg/dl (8.4-10.2); Carbon Dioxide 23 mmol/L (22-30); Chloride 108 mmol/L (98-107); Estimated Creatinine Clearance 74 ml/min; Glucose 127 mg/dl (70-99); Potassium 3.6 mmol/L (3.5-5.1); Sodium 136 mmol/L (135-145); eGFR > 60.00
--- NOTE | 2023-07-21 07:53 | W.PN.HOSP.TC ---
Today's Communication/Plan
-
cont abx
Tylenol prn headache/pain
follow E. coli sensitivities, cultures
glycemic control
Assessment / Plan
Assessment / Plan
Physical Exam
General: Well Developed, Well Nourished and No Apparent Distress
HEENT: NormoCephalic, Moist mucous membranes and Atraumatic
Respiratory: Clear
Cardiac: S1/S2 and Regular Rhythm; No Murmur or Rub
GI: Soft, Non Tender, Non Distended and Normal Bowel Sounds; No Organomegaly
Musculoskeletal: No Clubbing, No Cyanosis and No Edema
Skin: No Rash
Neuro: AO x 3 and Nonfocal/grossly intact
Psych: Calm
HPI: 78M Hx pancreatic cancer s/p Whipple, prostate cancer, GERD, hypertension, hyperlipidemia, NIDDM p/w generalized weakness 1 day duration, chills, shaking and fever of 101.6 at home. Patient also reported headache. Denied dizziness, syncopal
episode, chest pain, shortness of breath, abdominal pain, nausea, vomiting, diarrhea, dysuria, or hematuria. ED evaluation noted fever high 102.5, no significant leukocytosis noted.
# Fever 2/2 E coli bacteremia
-temp high 102.5 since resolved
-UA negative
-blood culture appreciated prelim E. coli, repeat blood cultures NGTD
-Tylenol as needed for fever/headacge
-ID eval appreciated, 5th GNR bacteremia since Whipple procedure 2016, cont ceftriaxone, follow up with [facility] surgeons recommended.
#abdominal pain resolved
-US Extremely limited study in part due to prior surgery and especially due to loop of bowel obscuring the organs of the upper abdomen including the liver. Cannot exclude right lobe hepatic space-occupying lesion versus geographic pattern of fatty
infiltration. Recommend CT or MRI for more complete evaluation.Prior cholecystectomy and known prior Whipple procedure. Pancreas, common bile duct, portions of liver and proximal abdominal aorta significantly obscured.
-CT abd/pelvis appreciated no acute abn's
-ctm
#pancreatic cancer s/p Whipple
- continue Creon
#Type 2 DM with hyperglycemia
-A1c 7.4
-Sliding scale
-Carb controlled diet
#prostate cancer s/p XRT
#GERD
#Essential HTN
-Valsartan/HCTZ continued
#hx of SVT s/p PPM
DVT ppx: Lovenox
Code: Full
I spent a total of 55 minutes with the patient or on the floor. More than 50% of this time involved counseling and coordination of care.
Anticipated Discharge: 24 - 48 hours
Subjective/Interval History
-
Date of Service: July 21, 2023
Seen and examined at bedside in no acute distress. Reports mild moderate headache
Objective Data
-
Labs:
Laboratory Results
07/21/23
05:57
WBC 4.6 L
Hgb 11.2 L
Hct 33.1 L
Plt Count 152
Sodium 136
Potassium 3.6
Chloride 108 H
Carbon Dioxide 23
BUN 15
Creatinine 0.8
Glucose 127 H
Calcium 7.9 L
Vital Signs:
Vital Signs
Temp Pulse Resp BP Pulse Ox
97.9 F 62 18 140/63 97
07/20/23 23:00 07/20/23 23:00 07/20/23 23:00 07/20/23 23:00 07/20/23 23:00
I&O
07/20/23 07/21/23 07/22/23
06:59 06:59 06:59
Intake Total 1100 / 1100
Balance 1100 / 1100
[2023-07-21] MEDS: NOVOLOG FLEXPEN-LOW RESISTANCE SC (08:20)
[2023-07-21] MEDS: ZENPEP DELAYED RELEASE CAPSULE 3 CAPSULE PO ×3 (08:21→17:30)
[2023-07-21] MEDS: ORETIC 12.5 MG PO (08:22)
[2023-07-21] MEDS: METAMUCIL, KONSYL 1 PACKET PO (08:22)
[2023-07-21] MEDS: DIOVAN 80 MG PO (08:22)
[2023-07-21] MEDS: BENTYL 10 MG PO ×2 (08:22→20:57)
[2023-07-21] MEDS: NIZORAL 2% CREAM 1 APPLIC TOPICAL (08:23)
[2023-07-21 12:27] LABS: Glucose - Point of Care 237 mg/dl (70-99)
[2023-07-21] MEDS: NOVOLOG FLEXPEN-LOW RESISTANCE 2 UNITS SC (12:39)
--- NOTE | 2023-07-21 14:57 | W.PN.ID1 ---
Date of Service
Date of Service: July 21, 2023
Today's Communication
-Continue ceftriaxone for now pending susceptibility.
- Anticipate dc home tomorrow.
Assessment / Plan
# Fever resolved
# Recurrent E. coli bacteremia
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
- 2016, 2018 Colonoscopies mild diverticulosis, 2 small polyps
- Suspect biliary/Whipple source with intermittent obstruction/spasms
- Recommend he follow-up at [facility] surgeons for re-evaluation
- Repeat blood cx's neg to date.
-Continue ceftriaxone for now pending susceptibility.
- Anticipate dc home tomorrow.
#Additional Past Medical History:
IDDM
Neuropathy
SVT s/p Pacemaker
Pancreatic CA s/p Whipple 2016 at [facility]
H/o Klebsiella/Aeromonas bacteremia 2019; 3 Klebsiella bacteremia 04/14/17; E coli bacteremia 2017, 02/2023, 07/2023
Diverticulitis and is status post bowel resection for diverticulitis (2000)
HTN
HLD
nephrolithiasis
Melanoma excision
Prostate CA s/p XRT
Right hip fracture gamma nailing
Chief Complaint
-: Bacteremia
Subjective / Review of Systems
Feeling better today.
Vital Signs / Physical Exam
Vital Signs
Vital Signs
Temp Pulse Resp BP Pulse Ox
98.0 F 65 18 145/71 96
07/21/23 07:00 07/21/23 08:22 07/21/23 07:00 07/21/23 08:22 07/21/23 07:00
Physical Exam
Constitutional: No Acute Distress and Comfortable
Cardiovascular: Regular Rate, S1/S2 and Other (PPM site no erythema/induration)
Pulmonary: Clear
Gastrointestinal: Soft, Non Tender and Non Distended
Extremities: Negative Edema
Neurological: AO x 3
Objective Data
Lab Data
Lab Results
07/21/23 05:57
07/21/23 05:57
Estimated Creat Clear 74 ml/min 07/21/23 05:57
Lactic Acid 1.7 mmol/L (0.7-2.0) 07/19/23 16:09
Total Bilirubin 0.6 mg/dl (0.2-1.3) 07/19/23 16:09
AST 49 U/L (17-59) 07/19/23 16:09
ALT 40 U/L (0-50) 07/19/23 16:09
Alkaline Phosphatase 84 U/L (38-126) 07/19/23 16:09
Most recent labs reviewed.
Micro Results:
07/20/23 12:39 Blood Culture - Preliminary
Blood/Venous No Growth in 24 hours- Final report to follow
07/20/23 12:15 Blood Culture - Preliminary
Blood/Venous No Growth in 24 hours- Final report to follow
07/19/23 17:17 Urine Culture - Final
Urine NO GROWTH
07/19/23 17:16 Blood Culture - Preliminary
Blood/Venous Escherichia coli
Gram Stain - Final
07/19/23 17:16 Blood Culture - Preliminary
Blood/Venous Escherichia coli
Gram Stain - Preliminary
07/19/23 19:36 Influenza Types A & B (JAZ) - Final
Nasal Swab Negative for Influenza A & B, NAAT
Negative results must be combined with clinical observations
and patient history.
Nucleic Acid Amplification test (NAAT)performed on the
[employer] platform.
07/19/23 CT a/p with IV and oral contrast: No CT evidence for an acute inflammatory process in the abdomen or pelvis. Stable chronic findings, as detailed above.
[2023-07-21 15:00] VITALS: BP 138/68
[2023-07-21 17:07] LABS: Glucose - Point of Care 273 mg/dl (70-99)
[2023-07-21] MEDS: STERILE WATER FOR INJECTION 10 ML IV (17:30)
[2023-07-21] MEDS: NOVOLOG FLEXPEN-LOW RESISTANCE 3 UNITS SC (17:30)
[2023-07-21] MEDS: ROCEPHIN 1000 MG IV (17:30)
[2023-07-21] MEDS: LOVENOX 40 MG SC (17:30)
[2023-07-21] MEDS: NIZORAL 2% CREAM TOPICAL (20:49)
[2023-07-21 21:17] LABS: Glucose - Point of Care 307 mg/dl (70-99)
[2023-07-21 23:41] VITALS: BP 152/82
[2023-07-22 07:00] VITALS: BP 127/61
[2023-07-22 07:26] LABS: Hematocrit 36.6 % (39.0-52.0); Hemoglobin 12.5 g/dL (13.0-18.0); Mean Corp Hgb Conc. 34.2 g/dL (33.0-37.0); Mean Corpuscular Hgb 30.9 pg (27.0-31.0); Mean Corpuscular Volume 90.6 fL (80.0-94.0); Mean Platelet Volume 11.2 fL (7.4-10.4); Platelet Count 169 10^3/uL (130-400); Red Blood Cell Count 4.04 10^6/uL (4.70-6.10); Red Cell Dist. Width 12.7 % (11.5-14.5); White Blood Cell Count 5.7 10^3/uL (4.8-10.8)
[2023-07-22 07:35] LABS: Glucose - Point of Care 163 mg/dl (70-99)
[2023-07-22 07:38] LABS: Blood Urea Nitrogen 17 mg/dl (9-20); Calcium 8.8 mg/dl (8.4-10.2); Carbon Dioxide 23 mmol/L (22-30); Chloride 105 mmol/L (98-107); Estimated Creatinine Clearance 74 ml/min; Glucose 158 mg/dl (70-99); Potassium 3.9 mmol/L (3.5-5.1); Sodium 136 mmol/L (135-145); eGFR > 60.00
[2023-07-22] MEDS: TYLENOL 650 MG PO (07:55)
[2023-07-22] MEDS: METAMUCIL, KONSYL 1 PACKET PO (07:59)
[2023-07-22] MEDS: NOVOLOG FLEXPEN-LOW RESISTANCE 1 UNITS SC (08:01)
[2023-07-22] MEDS: NIZORAL 2% CREAM TOPICAL (08:04)
[2023-07-22] MEDS: DIOVAN 80 MG PO (08:05)
[2023-07-22] MEDS: ORETIC 12.5 MG PO (08:05)
[2023-07-22] MEDS: ZENPEP DELAYED RELEASE CAPSULE 3 CAPSULE PO (08:05)
[2023-07-22] MEDS: BENTYL 10 MG PO (08:05)
--- NOTE | 2023-07-22 08:55 | W.PN.HOSP.TC ---
Today's Communication/Plan
-
discharge after IV antibiotics today
Assessment / Plan
Assessment / Plan
Physical Exam
General: Well Developed, Well Nourished and No Apparent Distress
HEENT: NormoCephalic, Moist mucous membranes and Atraumatic
Respiratory: Clear
Cardiac: S1/S2 and Regular Rhythm; No Murmur or Rub
GI: Soft, Non Tender, Non Distended and Normal Bowel Sounds; No Organomegaly
Musculoskeletal: No Clubbing, No Cyanosis and No Edema
Skin: No Rash
Neuro: AO x 3 and Nonfocal/grossly intact
Psych: Calm
HPI: 78M Hx pancreatic cancer s/p Whipple, prostate cancer, GERD, hypertension, hyperlipidemia, NIDDM p/w generalized weakness 1 day duration, chills, shaking and fever of 101.6 at home. Patient also reported headache. Denied dizziness, syncopal
episode, chest pain, shortness of breath, abdominal pain, nausea, vomiting, diarrhea, dysuria, or hematuria. ED evaluation noted fever high 102.5, no significant leukocytosis noted.
# Fever 2/2 E coli bacteremia
-temp high 102.5 since resolved
-UA negative
-blood culture appreciated E. coli pansensitive, repeat blood cultures NGTD
-Tylenol as needed for fever/headacge
-ID eval appreciated, 5th GNR bacteremia since Whipple procedure 2015, ceftriaxone to transition to cefuroxime 500 mg BID through 07/31, follow up with [facility] surgeons recommended.
#abdominal pain resolved
-US Extremely limited study in part due to prior surgery and especially due to loop of bowel obscuring the organs of the upper abdomen including the liver. Cannot exclude right lobe hepatic space-occupying lesion versus geographic pattern of fatty
infiltration. Prior cholecystectomy and known prior Whipple procedure. Pancreas, common bile duct, portions of liver and proximal abdominal aorta significantly obscured.
-CT abd/pelvis appreciated no acute abn's
-ctm
#pancreatic cancer s/p Whipple
- continue Creon
#Type 2 DM with hyperglycemia
-A1c 7.4
-Sliding scale
-Carb controlled diet
-outpatient follow up primary
#prostate cancer s/p XRT
#GERD
#Essential HTN
-Valsartan/HCTZ continued
#hx of SVT s/p PPM
DVT ppx: Lovenox
Code: Full
Medically stable for discharge home today (after IV abx) with outpatient follow up recommendations.
discussed with patient, infectious disease, and nurse
Total Time Preparing Discharge ___50____ minutes including examination of the patient, summary of the hospital stay, instructions for continuing care to all relevant caregivers; and preparation of discharge records, prescriptions, and referral
forms if necessary.
Anticipated Discharge: Today
Subjective/Interval History
-
Date of Service: July 22, 2023
Seen and examined at bedside in no acute distress sitting up comfortably in bed. Headache resolved. Discussed hyperglycemia, patient endorses having insulin at home able to manage on his own. Discussed potentially starting oral diabetic
medications such as Metformin. Patient declined in favor of outpatient follow up with his primary to further consider. Otherwise denies reports feeling well, denies new acute issues, eager to go home.
Objective Data
-
Labs:
Laboratory Results
07/22/23
07:01
WBC 5.7
Hgb 12.5 L
Hct 36.6 L
Plt Count 169
Sodium 136
Potassium 3.9
Chloride 105
Carbon Dioxide 23
BUN 17
Creatinine 0.8
Glucose 158 H
Calcium 8.8
Vital Signs:
Vital Signs
Temp Pulse Resp BP Pulse Ox
98.1 F 62 16 127/61 96
07/22/23 07:00 07/22/23 07:00 07/22/23 07:00 07/22/23 07:00 07/22/23 07:00
I&O
07/21/23 07/22/23 07/23/23
06:59 06:59 06:59
Intake Total 1100 / 1100 1080 / 1080
Balance 1100 / 1100 1080 / 1080
--- NOTE | 2023-07-22 10:33 | W.PN.ID1 ---
Date of Service
Date of Service: July 22, 2023
Today's Communication
DC home today.
Assessment / Plan
# Fever resolved
# Recurrent E. coli bacteremia
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
- 2016, 2018 Colonoscopies mild diverticulosis, 2 small polyps
- CT a/p unremarkable
- Suspect biliary/Whipple source with intermittent obstruction/spasms
- Repeat blood cx's neg to date.
-Can transition ceftriaxone to cefuroxime 500mg po bid through 08/01/23.
- Pt will make follow-up appt with [facility] surgeons for evaluation of Whipple as source of recurrent bacteremia.
- If bacteremia continues to recur and without surgical intervention, will consider abx suppressive therapy.
#Additional Past Medical History:
IDDM
Neuropathy
SVT s/p Pacemaker
Pancreatic CA s/p Whipple 2016 at [facility]
H/o Klebsiella/Aeromonas bacteremia 2019; 3 Klebsiella bacteremia 04/14/17; E coli bacteremia 2016, 02/2023, 07/2023
Diverticulitis and is status post bowel resection for diverticulitis (2000)
HTN
HLD
nephrolithiasis
Melanoma excision
Prostate CA s/p XRT
Right hip fracture gamma nailing
Chief Complaint
-: Bacteremia
Subjective / Review of Systems
Feels well. Mild TAPIA.
Vital Signs / Physical Exam
Vital Signs
Vital Signs
Temp Pulse Resp BP Pulse Ox
98.1 F 62 16 127/61 96
07/22/23 07:00 07/22/23 07:00 07/22/23 07:00 07/22/23 07:00 07/22/23 07:00
Physical Exam
Constitutional: No Acute Distress
Gastrointestinal: Soft, Non Tender and Non Distended
Objective Data
Lab Data
Lab Results
07/22/23 07:01
07/22/23 07:01
Estimated Creat Clear 74 ml/min 07/22/23 07:01
Lactic Acid 1.7 mmol/L (0.7-2.0) 07/19/23 16:09
Total Bilirubin 0.6 mg/dl (0.2-1.3) 07/19/23 16:09
AST 49 U/L (17-59) 07/19/23 16:09
ALT 40 U/L (0-50) 07/19/23 16:09
Alkaline Phosphatase 84 U/L (38-126) 07/19/23 16:09
Most recent labs reviewed.
Micro Results:
07/19/23 17:16 Blood Culture - Final
Blood/Venous Escherichia coli
Gram Stain - Final
07/19/23 17:16 Blood Culture - Preliminary
Blood/Venous Escherichia coli
Gram Stain - Preliminary
07/20/23 12:39 Blood Culture - Preliminary
Blood/Venous No Growth in 24 hours- Final report to follow
07/20/23 12:15 Blood Culture - Preliminary
Blood/Venous No Growth in 24 hours- Final report to follow
07/19/23 17:17 Urine Culture - Final
Urine NO GROWTH
07/19/23 19:36 Influenza Types A & B (JAZ) - Final
Nasal Swab Negative for Influenza A & B, NAAT
Negative results must be combined with clinical observations
and patient history.
Nucleic Acid Amplification test (NAAT)performed on the
[employer] platform.
07/19/23 CT a/p with IV and oral contrast: No CT evidence for an acute inflammatory process in the abdomen or pelvis. Stable chronic findings, as detailed above.
Care Review
Plan reviewed with: Physician (Dr. Slaughter)
[2023-07-22 11:43] LABS: Glucose - Point of Care 254 mg/dl (70-99)
[2023-07-22] MEDS: NOVOLOG FLEXPEN-LOW RESISTANCE SC (12:23)
[2023-07-22] MEDS: ZENPEP DELAYED RELEASE CAPSULE PO (12:23)
--- NOTE | 2023-07-22 12:28 | CM ---
Patient seen bedside, reports no needs to CM at this time. CM reviewed IMM, signed, placed in chart. CM will continue to follow for all discharge planning needs.
Plan; home no needs.
[2023-07-22] MEDS: STERILE WATER FOR INJECTION 10 ML IV (14:07)
[2023-07-22] MEDS: ROCEPHIN 1000 MG IV (14:07)
--- NOTE | 2023-07-22 14:58 | W.DCSUMMARY ---
Discharge Summary
Discharge Data
Date of Admission: 07/19/23
Date of Discharge: 07/22/23
-
Pending Results: No
Discharge Plan
-
Patient Disposition: Home (Routine Discharge)
Discharge Diagnosis/Procedures: Fever due to E coli bacteremia
Type 2 Diabetes
Hypertension
Condition: Fair
Diet: Diabetic, Carb Controlled
Activity: As tolerated
Driving Restrictions: As prior to admission
Bathing Restrictions: None
Activity Restrictions/Additional Instructions:
Please follow up with primary care provider in 1 week of discharge, [place] surgeon in 2 weeks of discharge, and Infectious disease in 2-4 weeks of discharge.
For E. coli bacteremia, you've been prescribed Cefuroxime 500 mg twice a day for 10 days (through 07/31).
Please take medications as prescribed/recommended and follow up with primary care provider and/or other healthcare provider involved in your care for refills and/or further adjustment to your medication regimen as necessary.
Referrals:
Zach Lemos I., DO [Family Provider] - in one week
Priti Osullivan MD [Active] - in two to four weeks
Prescriptions:
New
cefuroxime axetil 500 mg tablet
500 mg PO BID 10 Days Qty: 20 0RF
Rx Instructions:
Continue through 08/01/23 then stop
Continued
Metamucil Fiber Singles 1 PACKET powder in packet
1 packet PO DAILY
dicyclomine 10 MG capsule
10 mg PO BID
valsartan-hydrochlorothiazide [Diovan HCT] 80-12.5 mg Tablet
1 tab PO DAILY
Centrum Silver Men [id number] mcg Tablet
1 tab PO DAILY
ibuprofen 200 mg Tablet
600 mg PO TIDPRN PRN (Reason: mild pain)
ketoconazole 2 % Cream
1 applic TOPICAL DAILYPRN PRN (Reason: rash on face/nose)
simethicone 80 mg Tablet,Chewable
80 mg PO DAILYPRN PRN (Reason: gas)
Creon 24,000-76,000 -120,000 unit Capsule,Delayed Release(Dr/Ec)
3 cap PO MEALS
aspirin 325 mg Tablet
650 mg PO DAILYPRN PRN (Reason: mild pain)
Artificial Tears (PF) Dropperette
1 drp BOTH EYES DAILYPRN PRN (Reason: pollen/eye irritation)
Visbiome 112.5 billion cell Capsule
1 cap PO DAILY
CoQ-10 capsule
1 cap PO DAILY
Discharge Orders:
Discharge Patient (As Directed); Ordered 07/22/23
Ordered By: Louann Slaughter
Discharge Date and Time
Print Language: CHADIAN
[2023-07-22 15:00] VITALS: BP 148/91
== END 2023-07-22 15:33 | disposition home or self-care (01) | DRG 864 ==
LOC: 4 WEST ACU 19:46
PROVIDERS: Registered Nurse; ADMITTING PHYSICIAN Internal Medicine; ATTENDING PHYSICIAN Internal Medicine; CONSULT PHYSICIAN Internal Medicine Infectious Disease; EMERGENCY PHYSICIAN Emergency Medicine; FAMILY PHYSICIAN Internal Medicine
DX: R50.9 Fever, unspecified (principal); R78.81 Bacteremia; I47.10 Supraventricular tachycardia, unspecified; B96.20 Unspecified Escherichia coli [E. coli] as the cause of diseases classified elsewhere; I10 Essential (primary) hypertension; E11.65 Type 2 diabetes mellitus with hyperglycemia; E11.40 Type 2 diabetes mellitus with diabetic neuropathy, unspecified; Z95.0 Presence of cardiac pacemaker; Z85.07 Personal history of malignant neoplasm of pancreas; Z85.46 Personal history of malignant neoplasm of prostate
CPT/HCPCS: 74177; 80048; 80053; 81003; 81015; 82962; 83036; 83605; 85025; 85027; 87040; 87086; 87149; 87186; 87205; 87502; 87811; 96361; 96374; 99285; Q9967

== ENCOUNTER 2023-12-14 10:10 | Emergency (ER) | payer OTHER, SELFPAY ==
[2023-12-14 10:19] VITALS: BP 188/82
[2023-12-14 10:29] VITALS: BP 111/72
[2023-12-14 10:34] LABS: Glucose - Point of Care 163 mg/dl (70-99)
[2023-12-14 10:35] VITALS: BP 160/76
[2023-12-14 10:56] LABS: % Basophils 0.8 % (0-2); % Eosinophils 3.8 % (0-6); % Immature Granulocytes 0.4 % (0-0.5); % Lymphocytes 40.2 % (20.5-51.1); % Monocytes 10.6 % (1.7-9.3); % Neutrophils 44.2 % (42.2-75.2); Absolute Eosinophils 0.2 10^3/uL (0-0.7); Absolute Lymphocytes 2.1 10^3/uL (1.2-3.4); Absolute Monocytes 0.6 10^3/uL (0.1-0.6); Absolute Neutrophils 2.4 10^3/uL (1.4-6.5); Hematocrit 39.7 % (39.0-52.0); Hemoglobin 13.9 g/dL (13.0-18.0); Mean Corpuscular Hgb 32.2 pg (27.0-31.0); Mean Corpuscular Volume 91.9 fL (80.0-94.0); Mean Platelet Volume 11.1 fL (7.4-10.4); Nucleated Red Blood Cells % 0 % (-); Platelet Count 224 10^3/uL (130-400); Red Blood Cell Count 4.32 10^6/uL (4.70-6.10); Red Cell Dist. Width 12.7 % (11.5-14.5); White Blood Cell Count 5.3 10^3/uL (4.8-10.8)
[2023-12-14 11:00] VITALS: BP 171/83
[2023-12-14 11:11] LABS: ALT (SGPT) 40 U/L (0-50); AST (SGOT) 41 U/L (17-59); Alkaline Phosphatase 89 U/L (38-126); Blood Urea Nitrogen 26 mg/dl (9-20); Calcium 9.5 mg/dl (8.4-10.2); Carbon Dioxide 21 mmol/L (22-30); Chloride 106 mmol/L (98-107); Glucose 173 mg/dl (70-99); Potassium 4.4 mmol/L (3.5-5.1); Sodium 139 mmol/L (135-145); Total Bilirubin 0.5 mg/dl (0.2-1.3); Total Protein 6.5 g/dl (6.3-8.2); eGFR > 60.00
[2023-12-14 11:17] VITALS: BMI 22.9
[2023-12-14 11:19] LABS: Troponin I < 0.012 ng/ml
--- NOTE | 2023-12-14 11:22 | ED.GENMED ---
History of Present Illness
General
Chief Complaint: Fainting Sensation
Source: patient
Time Seen by Provider: 12/14/23 10:57
History of Present Illness
History of Present Illness:
78-year-old male presents to the emergency room for evaluation after having an episode of near syncope. Patient was sitting reading the paper when he began to feel a sense of lightheadedness and like he might pass out. Patient also experiencing
nausea. The symptoms have waxed and waned since this morning. He feels generally unwell. He denies chest pain, shortness of breath, abdominal pain. He denies vertigo type sensation.
Past History
Past History
ED Past Medical History: Cancer (Pancreatic, prostate), GERD, HTN, Hypercholesterolemia, IDDM and Other (Pancreatic tumor removed w Whipple procedure 2015)
ED Past Surgical History: Other (Whipple procedure 06/11/2015 at [facility]. 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
Social History
Tobacco: Former smoker
Alcohol: Daily
Drug: None
Personal:
Living: with family
Employment: Employed
Family History
Family History: Other (Noncontributory)
Phy Exam
Physical Exam
Physical Exam:
General: Awake, Alert, Oriented X3. No acute distress.
Vitals: unremarkable
Head: Atraumatic
Eyes: Pupils equal, EOMI
Throat: Airway intact, no exudates
Neck: Trachea midline
Lungs: Clear and equal b/l
Heart: Regular rate, no murmurs
Abd: Soft, Nontender, No pulsatile mass
Neuro: Nonfocal
Skin: Warm, dry, no rash
Extremities: pulses equal b/l, no edema
Course
Orders/Labs/Results
Orders:
Orders
12/14/23 10:10
ECG [Electrocardiogram (*1)] Urgent
Reason for Study: Syncope
EKG- Treatment ONCE
12/14/23 10:37
Electrocardiogram (*1) Urgent
Reason for Study: Chest Pain
Cardiac Monitoring- Treatment ONCE
EKG- Treatment ONCE
IV Insert/Care/Rem.- Treatment PRN
12/14/23 10:38
pacemaker [Interrogate Pacemaker- Treatment] ONCE
12/14/23 10:44
Complete Blood Count/With Diff Urgent
Comprehensive Metabolic Panel Urgent
Troponin I Urgent
12/14/23 11:16
CR Chest - 2 Views Urgent
Comment:
Reason For Exam: lightheaded, malaise
12/14/23 11:23
0.9% Sodium Chloride 500 ml [Nss] 500 ml IV BOLUS
12/14/23 11:27
COVID-19 Antigen Urgent
Source: Nasal Swab
Influenza A+B Rapid Molecular Urgent
BETSEY Source: Nasal Swab
Specimen Description:
Abnormal Lab Results
12/14/23 12/14/23
10:33 10:44
RBC 4.32 L 10^6/uL
(4.70-6.10)
MCH 32.2 H pg
(27.0-31.0)
MPV 11.1 H fL
(7.4-10.4)
Monocytes % 10.6 H %
(1.7-9.3)
Carbon Dioxide 21 L mmol/L
(22-30)
BUN 26 H mg/dl
(9-20)
Glucose 173 H mg/dl
(70-99)
POC Glucose 163 H mg/dl
(70-99)
12/14/23 10:44
12/14/23 10:44
Vital Signs
Initial and Last Documented VS:
Initial Vital Signs
Temp Pulse Resp BP Pulse Ox
98.3 F 63 16 188/82 100
12/14/23 10:19 12/14/23 10:19 12/14/23 10:19 12/14/23 10:19 12/14/23 10:19
Last Documented Vital Signs
Temp Pulse Resp BP Pulse Ox
98.3 F 61 20 175/69 100
12/14/23 10:19 12/14/23 12:15 12/14/23 12:15 12/14/23 12:00 12/14/23 12:15
MDM/Problems Addressed
Differential Diagnosis Includes:
anemia, dehydration, vasovagal event
MDM/Problems Addressed:
Symptoms that brought the patient to the emergency room have resolved. His workup here was unremarkable. He is not anemic. Labs show perhaps mild prerenal azotemia. Chest x-ray is unremarkable. Patient stable for discharge home and outpatient
follow-up.
*Radiology
Radiology exam reviewed: preliminary read by ED provider (No acute disease by my review of the chest x-ray)
*Pulse Oximetry
Patient hypoxic: no
*EKG
Interpreted by ED Provider?: Yes
Interpretation: normal
Heart Rate: 66
Rate: normal
Rhythm: PVC's and other (Atrial paced)
Interval: first degree heart block
QRS Pattern: normal QRS
Ischemia: non-specific ST changes
*Dinkey Brakeman Interpretation
Rate: normal
Rhythm: other (Atrial paced)
*Critical Care Note
Total Time (30-74mins, 75-104mins- exclusive of procedures): Not Applicable
ED Attending Note
-
Portions of this chart may have been created with voice recognition software.� Occasional wrong word or��sound alike� substitutions may have occurred due to the inherent limitations of voice recognition software.
Discharge Plan
Departure
Patient Disposition: Home (Routine Discharge)
Date of Disposition: 12/14/23
Time of Disposition: 13:47
Patient with high blood pressure during this ER visit?: Yes
Condition: Good
Discharge Problem:
Dizziness, Dehydration
Instructions: Near Fainting (DC), Dizziness
Prescriptions:
No Action
Metamucil Fiber Singles 1 PACKET powder in packet
1 packet PO DAILY
dicyclomine 10 MG capsule
10 mg PO BID
valsartan-hydrochlorothiazide [Diovan HCT] 80-12.5 mg Tablet
1 tab PO DAILY
Centrum Silver Men 329-66-823-300 mcg Tablet
1 tab PO DAILY
ibuprofen 200 mg Tablet
600 mg PO TIDPRN PRN (Reason: mild pain)
ketoconazole 2 % Cream
1 applic TOPICAL DAILYPRN PRN (Reason: rash on face/nose)
simethicone 80 mg Tablet,Chewable
80 mg PO DAILYPRN PRN (Reason: gas)
Creon 24,000-76,000 -120,000 unit Capsule,Delayed Release(Dr/Ec)
3 cap PO MEALS
aspirin 325 mg Tablet
650 mg PO DAILYPRN PRN (Reason: mild pain)
Artificial Tears (PF) Dropperette
1 drp BOTH EYES DAILYPRN PRN (Reason: pollen/eye irritation)
Visbiome 112.5 billion cell Capsule
1 cap PO DAILY
CoQ-10 capsule
1 cap PO DAILY
cefuroxime axetil 500 mg tablet
500 mg PO BID 10 Days Qty: 20 0RF
Rx Instructions:
Continue through 08/01/23 then stop
Referrals:
Zach Lemos I., DO [Family Provider] -
Interventions
Interventions:
*Risk Screen - Suicide Last Done: 12/14/23 10:19
*General Assessment Last Done: 12/14/23 10:19
*Neglect/Abuse Screening Last Done: 12/14/23 10:19
ED- Fall Risk Assessment Last Done: 12/14/23 13:58
*ED COVID-19 Vaccine History Last Done: 12/14/23 13:58
*Nursing Disposition Last Done: 12/14/23 13:58
ED- Cardiac Assessment Last Done: 12/14/23 13:58
ED- Neurological Assessment Last Done: 12/14/23 13:58
Discharge Date and Time
Discharge Date/Time: 12/14/23 13:59
Print Language: CROATIAN
[2023-12-14] MEDS: NSS 500 IV (11:28)
[2023-12-14 12:00] VITALS: BP 175/69
[2023-12-14 12:04] LABS: COVID-19 Antigen Negative (Negative)
== END 2023-12-14 13:59 | disposition home or self-care (01) ==
LOC: EMR 10:10
PROVIDERS: EMERGENCY PHYSICIAN Emergency Medicine; FAMILY PHYSICIAN Internal Medicine
DX: E86.0 Dehydration (principal); I10 Essential (primary) hypertension; E78.00 Pure hypercholesterolemia, unspecified; E11.9 Type 2 diabetes mellitus without complications; K21.9 Gastro-esophageal reflux disease without esophagitis; Z85.820 Personal history of malignant melanoma of skin; Z85.46 Personal history of malignant neoplasm of prostate; Z85.07 Personal history of malignant neoplasm of pancreas; Z87.891 Personal history of nicotine dependence; Z95.0 Presence of cardiac pacemaker
CPT/HCPCS: 96360; 99285; 71046; 80053; 82962; 84484; 85025; 87502; 87811; 93005

== ENCOUNTER → 2023-12-24 10:16 | Outpatient (REF) | payer OTHER, SELFPAY | LOC: RAD 10:16 | PROVIDERS: ATTENDING PHYSICIAN Nurse Practitioner Family; FAMILY PHYSICIAN Internal Medicine | DX: R53.82 Chronic fatigue, unspecified (principal); R55 Syncope and collapse; R42 Dizziness and giddiness; R51.9 Headache, unspecified; R09.89 Other specified symptoms and signs involving the circulatory and respiratory systems | CPT/HCPCS: 70470; Q9967 ==

== ENCOUNTER → 2023-12-27 14:10 | Outpatient (REF) | payer OTHER, SELFPAY | LOC: RAD 14:10 | PROVIDERS: ATTENDING PHYSICIAN Nurse Practitioner Family; FAMILY PHYSICIAN Internal Medicine | DX: R53.82 Chronic fatigue, unspecified (principal); R55 Syncope and collapse; R42 Dizziness and giddiness; R51.9 Headache, unspecified; R09.89 Other specified symptoms and signs involving the circulatory and respiratory systems | CPT/HCPCS: 93880 ==

== ENCOUNTER → 2024-01-05 14:40 | Outpatient (REF) | payer OTHER, SELFPAY | LOC: RCS 14:40 | PROVIDERS: ATTENDING PHYSICIAN Nurse Practitioner Family; FAMILY PHYSICIAN Internal Medicine | DX: R53.82 Chronic fatigue, unspecified (principal); R55 Syncope and collapse; R42 Dizziness and giddiness; R51.9 Headache, unspecified | CPT/HCPCS: 93306 ==

== ENCOUNTER 2024-01-25 14:48 | Inpatient (IN) | payer OTHER, SELFPAY ==
[2024-01-25 11:38] VITALS: BP 122/81
[2024-01-25 12:01] LABS: % Basophils 0.3 % (0-2); % Eosinophils 1.1 % (0-6); % Immature Granulocytes 0.3 % (0-0.5); % Lymphocytes 12.3 % (20.5-51.1); % Monocytes 5.9 % (1.7-9.3); % Neutrophils 80.1 % (42.2-75.2); Absolute Eosinophils 0.1 10^3/uL (0-0.7); Absolute Lymphocytes 1.1 10^3/uL (1.2-3.4); Absolute Monocytes 0.5 10^3/uL (0.1-0.6); Absolute Neutrophils 7.3 10^3/uL (1.4-6.5); Hematocrit 43.3 % (39.0-52.0); Hemoglobin 14.9 g/dL (13.0-18.0); Mean Corp Hgb Conc. 34.4 g/dL (33.0-37.0); Mean Corpuscular Hgb 31.6 pg (27.0-31.0); Mean Corpuscular Volume 91.7 fL (80.0-94.0); Mean Platelet Volume 11.1 fL (7.4-10.4); Nucleated Red Blood Cells % 0 % (-); Platelet Count 219 10^3/uL (130-400); Red Blood Cell Count 4.72 10^6/uL (4.70-6.10); Red Cell Dist. Width 12.2 % (11.5-14.5); White Blood Cell Count 9.2 10^3/uL (4.8-10.8)
[2024-01-25 12:12] LABS: COVID-19 Antigen Negative (Negative)
[2024-01-25 12:34] LABS: Blood Urea Nitrogen 22 mg/dl (9-20); Glucose 176 mg/dl (70-99); Sodium 139 mmol/L (135-145); eGFR > 60.00
[2024-01-25 12:35] LABS: Calcium 9.3 mg/dl (8.4-10.2); Carbon Dioxide 26 mmol/L (22-30); Chloride 100 mmol/L (98-107)
--- NOTE | 2024-01-25 13:53 | ED.GENMED ---
History of Present Illness
General
Chief Complaint: Fever
Source: patient
Exam Limitations: none
Time Seen by Provider: 01/25/24 13:39
History of Present Illness
History of Present Illness:
See MDM
Past History
Past History
ED Past Medical History: Cancer (Pancreatic, prostate), GERD, HTN, Hypercholesterolemia, IDDM and Other (Pancreatic tumor removed w Whipple procedure 2015)
ED Past Surgical History: Other (Whipple procedure 06/11/2015 at [facility]. 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
Social History
Tobacco: Former smoker
Alcohol: Daily
Drug: None
Personal:
Living: with family
Employment: Employed
Family History
Family History: Other (Noncontributory)
Phy Exam
Physical Exam
Physical Exam:
See MDM
Course
Orders/Labs/Results
Orders:
Orders
01/25/24 11:49
Basic Metabolic Panel Urgent
COVID-19 Antigen Urgent
Source: Nasal Swab
Complete Blood Count/With Diff Urgent
Influenza A+B Rapid Molecular Urgent
BETSEY Source: Nasal Swab
Specimen Description:
01/25/24 13:52
Potassium Urgent
Zosyn 3.375 grams IVPB NOW Piperacillin/Tazo 3.375 Gram [Zosyn] 3.375 gram in 50 ml IV NOW
01/25/24 13:53
Urinalysis Reflex To Culture Urgent
CR Chest - 2 Views Urgent
Comment:
Reason For Exam: fever, cough
01/25/24 14:00
Lactic Acid Q4H
Comment: CANCEL 2nd LACTIC ACID IF 1st LACTIC ACID IS LESS THAN 2
Blood Culture Q30M
BETSEY Source: Blood/Venous
Specimen Description:
01/25/24 14:30
Blood Culture Q30M
BETSEY Source: Blood/Venous
Specimen Description:
01/25/24 18:00
Lactic Acid Q4H
Comment: CANCEL 2nd LACTIC ACID IF 1st LACTIC ACID IS LESS THAN 2
Abnormal Lab Results
01/25/24
11:49
MCH 31.6 H pg
(27.0-31.0)
MPV 11.1 H fL
(7.4-10.4)
Absolute Neuts (auto) 7.3 H 10^3/uL
(1.4-6.5)
Absolute Lymphs (auto) 1.1 L 10^3/uL
(1.2-3.4)
Neutrophils % 80.1 H %
(42.2-75.2)
Lymphocytes % 12.3 L %
(20.5-51.1)
BUN 22 H mg/dl
(9-20)
Glucose 176 H mg/dl
(70-99)
01/25/24 11:49
01/25/24 11:49
Vital Signs
Initial and Last Documented VS:
Initial Vital Signs
Temp Pulse Resp BP Pulse Ox
100.4 F H 83 20 122/81 95
01/25/24 11:38 01/25/24 11:38 01/25/24 11:38 01/25/24 11:38 01/25/24 11:38
Last Documented Vital Signs
Temp Pulse Resp BP Pulse Ox
100.4 F H 85 23 122/81 98
01/25/24 11:38 01/25/24 13:45 01/25/24 13:45 01/25/24 11:38 01/25/24 13:45
MDM/Problems Addressed
Differential Diagnosis Includes:
HPI and MDM Narrative:
78-year-old male presenting with fever. Patient states this feels very similar to last time diagnosed with sepsis. He has been admitted multiple times for similar issues but they cannot find the source. He has had a prior Whipple and his surgical
team at [place] have performed endoscopy and colonoscopy and still unable to find source. Patient has a dry cough but states he had a chest x-ray a week ago which was negative. He denies any urinary symptoms. Given his prior history, will start
broad-spectrum antibiotics and obtain cultures and admit for possible sepsis
Physical exam
General: Well appearing and non-toxic
HEENT: protecting airway
Neck: appears supple
CV: No evidence of cyanosis. Regular rate and rhythm
Resp: No accessory muscle use. Lungs clear
Abd: Non-distended and nontender
Extremities: No deformities
Neuro: alert
Psych: Normal affect
Skin: Warm. No rash noted
Problems Addressed including Acute and Chronic Conditions affecting care:
1. Fever
Acuity: acute
Prognosis: stable
Details: Potentially in the setting of sepsis. Patient has had sepsis before with no obvious source. Will start broad-spectrum antibiotics and admit
Differential Diagnosis (but not limited to): Sepsis, viral syndrome
Testing considered: CT abdomen/pelvis but he has no abdominal tenderness
Drug therapy (if applicable): OTC meds, please see d/c instruction regarding Rx drugs
Amount and/or Complexity of Data Reviewed
Clinical info obtained from: Patient
External data reviewed: Prior admissions for similar issues and found to be bacteremic
Labs I independently reviewed (but not limited to): White blood cell count normal
Radiology: N/A
Pulse Ox: not hypoxic
EKG independently reviewed: N/A
Ortho Rn: Paced rhythm
Critical Care: N/A
Risk of Complication:
Social Determinants of health: Good social support
Discussed with other providers: N/A
Escalation of Care includes Admit/Obs: After being observed in the Emergency Department, pt stable for discharge.
Occasional wrong word or 'sound a like' substitutions may have occurred due to the inherent limitations of voice recognition software. Read the chart carefully and recognize, using context, where substitutions have occurred.
*Critical Care Note
Total Time (30-74mins, 75-104mins- exclusive of procedures): Not Applicable
ED Attending Note
-
Portions of this chart may have been created with voice recognition software.� Occasional wrong word or��sound alike� substitutions may have occurred due to the inherent limitations of voice recognition software.
Discharge Plan
Departure
Patient Disposition: Admit
Date of Disposition: 01/25/24
Time of Disposition: 13:59
Admit to: Med/Surg
Presentation/result/management discussed w/ accepting MD/DO: Hospitalist
Discharge Problem:
Fever
Prescriptions:
No Action
Metamucil Fiber Singles 1 PACKET powder in packet
1 packet PO DAILY
dicyclomine 10 MG capsule
10 mg PO BID
valsartan-hydrochlorothiazide [Diovan HCT] 80-12.5 mg Tablet
1 tab PO DAILY
Centrum Silver Men 120-47-934-300 mcg Tablet
1 tab PO DAILY
ibuprofen 200 mg Tablet
600 mg PO TIDPRN PRN (Reason: mild pain)
ketoconazole 2 % Cream
1 applic TOPICAL DAILYPRN PRN (Reason: rash on face/nose)
simethicone 80 mg Tablet,Chewable
80 mg PO DAILYPRN PRN (Reason: gas)
Creon 24,000-76,000 -120,000 unit Capsule,Delayed Release(Dr/Ec)
3 cap PO MEALS
aspirin 325 mg Tablet
650 mg PO DAILYPRN PRN (Reason: mild pain)
Artificial Tears (PF) Dropperette
1 drp BOTH EYES DAILYPRN PRN (Reason: pollen/eye irritation)
Visbiome 112.5 billion cell Capsule
1 cap PO DAILY
CoQ-10 capsule
1 cap PO DAILY
cefuroxime axetil 500 mg tablet
500 mg PO BID 10 Days Qty: 20 0RF
Rx Instructions:
Continue through 08/01/23 then stop
Referrals:
Zach Lemos I., DO [Family Provider] -
Interventions
Interventions:
*Risk Screen - Suicide Last Done: 01/25/24 11:38
*General Assessment Last Done: 01/25/24 11:38
*Neglect/Abuse Screening Last Done: 01/25/24 11:38
ED- Fall Risk Assessment Last Done: 01/25/24 13:45
*ED COVID-19 Vaccine History Last Done: 01/25/24 13:45
ED- Neurological Assessment Last Done: 01/25/24 13:45
ED-Skin Assessment Last Done: 01/25/24 13:45
Discharge Date and Time
Print Language: GERMAN
[2024-01-25 14:00] VITALS: BMI 23.1
--- NOTE | 2024-01-25 14:10 | HPS.HSE ---
Family Physician
-
Family Physician: Zach Lemos
Chief Complaint
-
Shaking Chills
History of Present Illness
Patient is an 78 y/o male past medical history of recurrent E. coli bacteremia, hypertension and post-surgical diabetes mellitus who presents with shaking chills. Patient reports he was not feeling well yesterday with some dizziness and nausea.
This morning he developed shaking chills with low grade fever prompting him to come to the emergency department for evaluation. He has history of recurrent bacteremia and notes he did take a dose of amoxicillin at the onset of symptoms this morning
as instructed by his primary infectious disease physician. He reports mild dry cough, but denies shortness of breath. He denies abdominal pain, vomiting, diarrhea, dysuria or urinary frequency.
Medical History
Past Medical History
Past Medical History: Reports Other
Additional Past Medical History:
Recurrent E. colli Bacteremia
Essential Hypertension
Hyperlipidemia
Insulin Dependent Diabetes Mellitus
Hx Pancreatic CA s/p Whipple
Hx Prostate CA s/p Radiation
Hx Sick Sinus Syndrome s/p Pacemaker
Past Surgical History: Reports Other
Additional Past Surgical History:
Sigmoidectomy
Whipple
Melanoma Resection
Social History
Tobacco: Former Smoker
Alcohol: Occasional (Glass of wine)
Personal:
Living: With Family
Family History
Family History: Not pertinent
Allergies / Home Medications
Allergies reflects when Allergies were last updated in [facility].
Home Medications with original date entered in [facility]
Allergy/Medication List:
Allergies
Allergy/AdvReac Type Severity Reaction Status Date / Time
No Known Allergies Allergy Verified 01/25/24 11:42
Home Medications
psyllium husk (aspartame) 3.4 gram oral powder packet (Metamucil Fiber Singles) 1 packet PO DAILY Constipation 06/03/18
dicyclomine 10 mg capsule 10 mg PO TIDPRN PRN spasms 04/18/20
valsartan 80 mg-hydrochlorothiazide 12.5 mg tablet (Diovan HCT) 1 tab PO DAILY Blood pressure 05/29/22
muodpbxy-qs-gxffs 300 mcg-K 60 mcg-lycop 600 mcg-lutein 300 mcg tablet (Centrum Silver Men) 1 tab PO DAILY Supplement 11/09/22
gqxofd-gpfjylyi-pnzpmip 24,000-76,000-120,000 unit capsule,delayed rel (Creon) 3 cap PO MEALS Gastrointestinal Issue 02/15/23
Review of Systems
-
A 12 point ROS was completed and negative except as noted: Yes
Constitutional: Denies Fever or Chills
Respiratory: Reports Cough (Dry ); Denies Trouble Breathing
Cardiac: Denies Chest Pain or Palpitations
Abdomen/GI: Reports Nausea (Related to dizziness); Denies Abdominal Pain, Vomiting or Diarrhea
: Denies Dysuria or Frequency
Physical Exam
Vital Signs
Vital Signs
Temp Pulse Resp BP Pulse Ox
100.4 F H 85 23 122/81 98
01/25/24 11:38 01/25/24 13:45 01/25/24 13:45 01/25/24 11:38 01/25/24 13:45
Physical Exam
General: Comfortable and Conversant
HEENT: Anicteric and Moist mucous membranes
Respiratory: Clear and Non Labored Respirations
Cardiac: S1/S2 and Regular Rhythm
GI: Soft and Non Tender
Genito-urinary: Clear Urine
Musculoskeletal: No Clubbing, No Cyanosis and No Edema
Skin: Warm and Dry
Neuro: Awake, Alert, Oriented and Nonfocal/grossly intact
Psych: Calm
Laboratory Results
-
01/25/24 11:49
Laboratory Results
Total Bilirubin Cancelled 01/25/24 11:49
AST Cancelled 01/25/24 11:49
ALT Cancelled 01/25/24 11:49
Alkaline Phosphatase Cancelled 01/25/24 11:49
Data Reviewed
-
Diagnostic Radiology: Report Reviewed by me
Lab Data: Labs Reviewed by me
Impression/Plan
-
Fever with Shaking Chills, concern for recurrent bacteremia given prior history
-COVID and Influenza negative
-Await CXR and urinalysis
-Continue Zosyn
-Consult Infectious Disease
Diabetes Mellitus post- Whipple
-Check HgbA1c
-Monitor sugars and continue coverage insulin
Essential Hypertension
-Continue Diovan
Hx Pancreatic CA s/p Whipple
Hx Prostate CA s/p Radiation
Hx Sick Sinus Syndrome s/p Pacemaker
DVT Proph: Lovenox
Code Status: Full Code
--- NOTE | 2024-01-25 14:14 | CON.ID ---
Consultation
-
Date/Time Consultation Requested: January 25, 2024 1400
Date/Time Consultation Performed: January 25, 2024 1415
Requesting Provider: NATHANAEL Bermudez
Performing Provider: Dr. Priti Osullivan
Reason for Consultation: Fever and shaking chills
Chief Complaint / Past History
Chief Complaint
Fever and chills
History of Present Illness
78 year old with history of pancreatic cancer s/p Whipple 2016, prostate cancer s/p XRT, pacemaker placement, recurrent GNR bacteremia who presented to ED today due to shaking chills, ,malaise, fever 100.4. Yesterday started feeling unwell with
nausea and dry heaves. This morning started with rigors and fever similar to previous presentations. ED T=110.4. WBC normal. Bcx's x 2 pending. No abd pain/diarrhea. No cough/sob. No urinary symptoms. No URI sxs. No ill contacts. He has had
recent EGD and colonoscopy with negative findings to explain recurrent GNR bacteremia.
Past History
Additional Past Medical History:
IDDM
Neuropathy
SVT s/p Pacemaker
Pancreatic CA s/p Whipple 2015 at [facility]
H/o Klebsiella/Aeromonas bacteremia 2019; 3 Klebsiella bacteremia 04/14/17; E coli bacteremia 2016, 02/2023, 07/2023
Diverticulitis and is status post bowel resection for diverticulitis (2000)
HTN
HLD
nephrolithiasis
Melanoma excision
Prostate CA s/p XRT
Right hip fracture gamma nailing
Allergy History:
No Known Allergies Allergy (Verified 01/25/24 11:42)
Medications Reviewed: Yes
Current Antibiotics:
Zosyn
Social History
Tobacco: Former Smoker
Alcohol: None
Drug: None
Personal:
Family History
Family History: Not Pertinent
Review of Systems
Review of Systems
General: Fever, Chills and Change in Appetite
HEENT: Negative Sinus Problems, Headache or Pharyngitis
Cardiovascular: Negative Chest Pain or Dyspnea
Respiratory: Negative Dyspnea or Cough
Gasteroenterology: Nausea; Negative Vomiting or Diarrhea
Genital / Urological: Negative Dysuria or Flank Pain
Endocrine: Weakness
All systems: All other systems were reviewed and were negative
Vital Signs
Temp Pulse Resp BP Pulse Ox
100.4 F H 85 23 122/81 98
01/25/24 11:38 01/25/24 13:45 01/25/24 13:45 01/25/24 11:38 01/25/24 13:45
Selected Entries
01/25/24
11:38
Temp 100.4 F H
Physical Exam
Physical Exam
Constitutional: No Acute Distress and Comfortable
Eyes: No Conjunctival Hemorrhage and Sclera Anicteric
Cardiovascular: Regular Rate, S1/S2 and Other (left chest wall PPM no ertheyma/induration)
Pulmonary: Clear
Gastrointestinal: Soft, Non Tender, Non Distended and Normal Bowel Sounds
Genito-Urinary: Negative CVA Tenderness
Extremities: Negative Edema
Neurological: AO x 3
Lab / Diagnostic Study Results
01/25/24 11:49
Abs Immat Gran (auto) 0.0 10^3/uL (0-0.05) 01/25/24 11:49
Absolute Neuts (auto) 7.3 10^3/uL (1.4-6.5) H 01/25/24 11:49
Absolute Lymphs (auto) 1.1 10^3/uL (1.2-3.4) L 01/25/24 11:49
Absolute Monos (auto) 0.5 10^3/uL (0.1-0.6) 01/25/24 11:49
Absolute Basos (auto) 0.0 10^3/uL (0-0.2) 01/25/24 11:49
Immature Gran % 0.3 % (0-0.5) 01/25/24 11:49
Neutrophils % 80.1 % (42.2-75.2) H 01/25/24 11:49
Lymphocytes % 12.3 % (20.5-51.1) L 01/25/24 11:49
Monocytes % 5.9 % (1.7-9.3) 01/25/24 11:49
Eosinophils % 1.1 % (0-6) 01/25/24 11:49
Basophils % 0.3 % (0-2) 01/25/24 11:49
Microbiology Results
Micro:
01/25/24 11:49 Influenza Types A & B (JAZ) - Final
Nasal Swab Negative for Influenza A & B, NAAT
Negative results must be combined with clinical observations
and patient history.
Nucleic Acid Amplification test (NAAT)performed on the
[email or web address] ID NOW platform.
Assessment / Plan
# Fever
# Suspect bacteremia
# hx Recurrent GNR bacteremia- 5 episodes since Whipple procedure in 2016 for pancreatic neuroendocrine tumor, last episode 07/2023
- 09/09/2023 saw ID at [facility] who agreed with suspected biliary source and recommended EGD/ERCP
- 10/14/2023 EGD/small bowel enteroscopy at [facility]: LA Grade B reflux esophagitis with no bleeding. Gastritis, biopsied (reactive gastropathy, neg H. pylori). Widely patent pylorus-sparing Whipple, characterized by congestion, erosion,
erythema and friable mucosa was found in the duodenum, Biopsied (chronic mucosal injury). Normal examined jejunum.
- 10/14/2023 Colonoscopy at [facility]: diverticulosis, patent end to end colo-colonic anastomosis.
- 01/05/24 TTE no valvular abnormalities
- Unable to have MRI abd due to presence of PPM
-Await blood cx's
-Narrow Zosyn to ceftriaxone.
-Follow temps.
# Conditions [employer]
IDDM
Neuropathy
SVT s/p Pacemaker
Pancreatic CA s/p Whipple 2016 at [facility]
H/o Klebsiella/Aeromonas bacteremia 2019; 3 Klebsiella bacteremia 04/14/17; E coli bacteremia 2017, 02/2023, 07/2023
Diverticulitis and is status post bowel resection for diverticulitis (2000)
HTN
HLD
nephrolithiasis
Melanoma excision
Prostate CA s/p XRT
Right hip fracture gamma nailing
[2024-01-25] MEDS: ZOSYN 50 IV (14:21)
[2024-01-25] MEDS: TYLENOL 650 MG PO ×2 (14:23→17:35)
--- NOTE | 2024-01-25 14:28 | W.PN.UPDATE ---
Update Note
Progress Note Update
This is an addendum to the H&P by Candelaria Simon on 01/25/2024.� Patient seen and examined independently with PA.
78-year-old male past medical history of pancreatic neuroendocrine tumor status post Whipple, recurrent E. coli bacteremia unknown source, prior Klebsiella/Aeromonas bacteremia, prostate cancer status post radiation, hypertension, GERD, SVT status
post pacemaker, hypertension, hyperlipidemia, diabetes, presenting with fever starting today and dry cough for few days.
In the past E. coli bacteremia was thought to be secondary to biliary/Whipple source with intermittent obstruction/spasms.� He was recommend to follow-up with [facility] surgeons regarding this.� Antibiotic suppressive therapy was considered previously.
COVID and influenza negative.� Check blood cultures.� Check urinalysis, check chest x-ray.� Empiric Zosyn for now.� ID consulted.
[2024-01-25 14:42] LABS: Urine Albumin Negative (Neg - Trace); Urine Bilirubin Negative (Negative); Urine Character Clear (Clear); Urine Color Yellow; Urine Glucose Negative (Negative); Urine Ketone Negative (Negative); Urine Leukocyte Negative (Negative); Urine Nitrite Negative (Negative); Urine Occult Blood Negative (Negative); Urine Specific Gravity 1.015 (<1.030); Urine Urobilinogen Negative (Neg - 1+)
[2024-01-25 15:20] LABS: Lactic Acid 1.5 mmol/L (0.7-2.0)
[2024-01-25 15:58] VITALS: BP 115/62
[2024-01-25 16:27] VITALS: BMI 21.8
[2024-01-25 17:05] LABS: Glucose - Point of Care 160 mg/dl (70-99)
[2024-01-25 17:16] LABS: Glucose - Point of Care 136 mg/dl (70-99)
[2024-01-25] MEDS: NOVOLOG FLEXPEN-LOW RESISTANCE SC (17:18)
[2024-01-25] MEDS: ZENPEP DELAYED RELEASE CAPSULE 3 CAPSULE PO (17:28)
[2024-01-25] MEDS: LOVENOX 40 MG SC (17:28)
[2024-01-25] MEDS: STERILE WATER FOR INJECTION 20 ML IV (17:29)
[2024-01-25] MEDS: ROCEPHIN 2000 MG IV (17:29)
[2024-01-25 19:00] VITALS: BP 123/64
[2024-01-25 21:15] LABS: Glucose - Point of Care 228 mg/dl (70-99)
[2024-01-25 23:00] VITALS: BP 127/56
[2024-01-26 03:00] VITALS: BP 151/72
[2024-01-26 06:00] VITALS: BMI 22.3
[2024-01-26 07:34] VITALS: BP 118/54
[2024-01-26 07:35] LABS: Hematocrit 35.2 % (39.0-52.0); Hemoglobin 12.1 g/dL (13.0-18.0); Mean Corp Hgb Conc. 34.4 g/dL (33.0-37.0); Mean Corpuscular Hgb 31.2 pg (27.0-31.0); Mean Corpuscular Volume 90.7 fL (80.0-94.0); Mean Platelet Volume 11.2 fL (7.4-10.4); Platelet Count 178 10^3/uL (130-400); Red Blood Cell Count 3.88 10^6/uL (4.70-6.10); Red Cell Dist. Width 12.3 % (11.5-14.5); White Blood Cell Count 6.1 10^3/uL (4.8-10.8)
[2024-01-26 07:57] LABS: Glucose - Point of Care 111 mg/dl (70-99)
[2024-01-26] MEDS: NOVOLOG FLEXPEN-LOW RESISTANCE SC (07:59)
[2024-01-26] MEDS: METAMUCIL, KONSYL 1 PACKET PO (08:02)
[2024-01-26] MEDS: THERAGRAN 1 TABLET PO (08:02)
[2024-01-26] MEDS: DIOVAN 80 MG PO (08:02)
[2024-01-26] MEDS: ZENPEP DELAYED RELEASE CAPSULE 3 CAPSULE PO ×3 (08:04→17:36)
[2024-01-26 08:16] LABS: Chloride 102 mmol/L (98-107); Potassium 3.9 mmol/L (3.5-5.1); Sodium 134 mmol/L (135-145)
--- NOTE | 2024-01-26 08:21 | W.PN.HOSP.TC ---
Addendum entered and electronically signed by Jaron Majano MD 01/26/24 23:42:
Attending Addendum-
I saw and evaluated the patient. I reviewed the resident�s note and agree with findings and plan as documented in the resident�s note. Sub: Feels improved. No fevers chills rigors N/V abd pain. seen with present. Full 12 point ROS reviewed and
negative except as documented Exam: Vitals reviewed in chart GEN-NAD heart RRR lungs clear abd mild TTP RUQ LE no edema
# Sepsis + bacteremic secondary to probable billiary source
- bacteremic x 7 times post Whipple
- Blood cx pos x 2 sets kleb pneumo await sensi
- repeat blood cx
- Zosyn->Rocephin
- Infectious Disease input appreciated
- c/s GI for possible ERCP/EUS
# Hyponatremia
- mild
- repeat BMP in am
- encourage fluids
# Transaminitis
- cont to trend
# Diabetes Mellitus post- Whipple
- HgbA1c 7.7
- unclear why not on DM meds
- start metformin on DC
- Monitor sugars and continue coverage insulin
# Essential Hypertension
-Continue Diovan
-Hx Pancreatic CA s/p Whipple
-Hx Prostate CA s/p Radiation
-Hx Sick Sinus Syndrome s/p Pacemaker
DVT Proph: Lovenox
Code Status: Full Code
Time spent coordinating care, review of plan of care with resident, personally reviewed records in EMR, med rec, consults, notes, labs, radiology, d/w nursing and ID � 58 mins
Original Note:
Today's Communication/Plan
-
Positive blood cultures for Klebsiella pneumonia
continue ceftriaxone
Consult GI for possible ERCP
Follow temperature curve and WBC
ID following
Assessment / Plan
Assessment / Plan
Impression
Fever secondary to gram-negative bacteremia
Type 2 diabetes mellitus with hyperglycemia
Essential hypertension
History of pancreatic cancer s/p Whipple
History of prostate cancer s/p radiation
History of sick sinus syndrome s/p pacemaker placement
Assessment and plan
Fever secondary to gram-negative bacteremia
Positive blood cultures for Klebsiella pneumonia
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
Continue ceftriaxone 2 g IV every 24
Negative for influenza, COVID
ID on board
Follow temperature curve and WBC
History of pancreatic cancers s/p Whipple
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
Suspect a biliary source. Patient will require ERCP
He has had EGD and colonoscopy
Will consult GI for further eval
Type 2 diabetes mellitus with hyperglycemia
Previous A1c 7.7
Sliding scale
Diabetic diet
Essential hypertension
Continue Diovan
#History of prostate cancer s/p radiation
#History of sick sinus syndrome s/p pacemaker placement
DVT prophylaxis-Lovenox
Anticipated Discharge: > 48 hours
Subjective/Interval History
-
Date of Service: January 26, 2024
Patient is an 78 y/o male past medical history of recurrent E. coli bacteremia, hypertension and post-surgical diabetes mellitus who presents with shaking chills. Patient reports he was not feeling well yesterday with some dizziness and nausea.
Yesterday he developed shaking chills with low grade fever prompting him to come to the emergency department for evaluation. He has history of recurrent bacteremia and notes he did take a dose of amoxicillin at the onset of symptoms this morning as
instructed by his primary infectious disease physician. He reports mild dry cough, but denies shortness of breath. He denies abdominal pain, vomiting, diarrhea, dysuria or urinary frequency.
Objective Data
-
Labs:
Laboratory Results
01/26/24
07:00
WBC 6.1
Hgb 12.1 L
Hct 35.2 L
Plt Count 178
Sodium 134 L
Potassium 3.9
Chloride 102
Carbon Dioxide Pending
BUN Pending
Creatinine Pending
Glucose Pending
Calcium Pending
Vital Signs:
Vital Signs
Temp Pulse Resp BP Pulse Ox
98.5 F 64 16 118/54 97
01/26/24 07:34 01/26/24 08:02 01/26/24 07:34 01/26/24 08:02 01/26/24 07:34
I&O
01/25/24 01/26/24 01/27/24
06:59 06:59 06:59
Intake Total 1560 / 1560
Balance 1560 / 1560
Review of Systems
-
All other systems: Reviewed and negative (except mentioned )
Constitutional: Reports Fatigue
Abdomen/GI: Reports Nausea; Denies Vomiting
Physical Exam
-
General: No Apparent Distress and Comfortable
HEENT: Normocephalic and Atraumatic
Respiratory: Clear to Auscultation
Cardiac: Regular Rhythm
GI: Soft, Nontender, Nondistended and Normal Bowel Sounds
Musculoskeletal: No Edema
Neuro: AO x 3
Data Reviewed
-
Labs: Labs Reviewed by me and Discussed with Physician
[2024-01-26 08:29] LABS: Blood Urea Nitrogen 24 mg/dl (9-20); Calcium 8.3 mg/dl (8.4-10.2); Carbon Dioxide 26 mmol/L (22-30); Estimated Creatinine Clearance 65 ml/min; Glucose 145 mg/dl (70-99); eGFR > 60.00
[2024-01-26 08:49] LABS: Glycohemoglobin (HgbA1c) 7.7 % (4.0-5.6)
[2024-01-26 11:27] VITALS: BP 155/74
[2024-01-26] MEDS: ZOFRAN 4 MG IV (11:37)
[2024-01-26 11:45] LABS: Glucose - Point of Care 287 mg/dl (70-99)
[2024-01-26] MEDS: NOVOLOG FLEXPEN-LOW RESISTANCE 3 UNITS SC (11:54)
--- NOTE | 2024-01-26 13:20 | W.PN.ID1 ---
Date of Service
Date of Service: January 26, 2024
Today's Communication
Continue ceftriaxone.
Repeat blood cx's.
Assessment / Plan
# Fever
# Klebsiella bacteremia
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 coli bacteremia 2017, Klebsiella/Aeromonas bacteremia 2018; 3 Klebsiella bacteremia 04/14/17; E coli
bacteremia, 02/2023, 07/2023)
- 09/09/2023 saw ID at [facility] who agreed with suspected biliary source and recommended EGD/ERCP
- 10/14/2023 EGD/small bowel enteroscopy at [facility]: LA Grade B reflux esophagitis with no bleeding. Gastritis, biopsied (reactive gastropathy, neg H. pylori). Widely patent pylorus-sparing Whipple, characterized by congestion, erosion,
erythema and friable mucosa was found in the duodenum, Biopsied (chronic mucosal injury). Normal examined jejunum.
- 10/14/2023 Colonoscopy at [facility]: diverticulosis, patent end to end colo-colonic anastomosis.
- 01/05/24 TTE no valvular abnormalities
- Unable to have MRI abd due to presence of PPM
- Repeat blood cx's.
- Continue ceftriaxone pending final cx.
-Follow temps.
-Since unable to control source, may eventually need suppressive abx.
# Conditions PRESS CLEANER
IDDM
Neuropathy
SVT s/p Pacemaker
Pancreatic CA s/p Whipple 2015 at [facility]
H/o Klebsiella/Aeromonas bacteremia 2019; 3 Klebsiella bacteremia 04/14/17; E coli bacteremia 2017, 02/2023, 07/2023
Diverticulitis and is status post bowel resection for diverticulitis (2000)
HTN
HLD
nephrolithiasis
Melanoma excision
Prostate CA s/p XRT
Right hip fracture gamma nailing
Chief Complaint
-: Bacteremia
Subjective / Review of Systems
Positive nausea and fatigue. No abd pain.
at bedside.
Vital Signs / Physical Exam
Vital Signs
Vital Signs
Temp Pulse Resp BP Pulse Ox
97.8 F 72 17 155/74 97
01/26/24 11:27 01/26/24 11:27 01/26/24 11:27 01/26/24 11:27 01/26/24 11:27
Selected Entries
01/25/24
17:36
Temp 102.7 F H
Physical Exam
Constitutional: No Acute Distress and Comfortable
Pulmonary: Clear
Gastrointestinal: Soft, Non Tender, Non Distended and Normal Bowel Sounds
Genito-Urinary: Negative CVA Tenderness
Extremities: Negative Edema
Neurological: AO x 3
Objective Data
Lab Data
Lab Results
01/26/24 07:00
01/26/24 07:00
Estimated Creat Clear 65 ml/min 01/26/24 07:00
Lactic Acid Cancelled 01/25/24 18:00
Total Bilirubin Cancelled 01/25/24 11:49
AST Cancelled 01/25/24 11:49
ALT Cancelled 01/25/24 11:49
Alkaline Phosphatase Cancelled 01/25/24 11:49
Most recent labs reviewed.
Micro Results:
01/25/24 14:01 Blood Culture - Preliminary
Blood/Venous Klebsiella pneumoniae
Gram Stain - Preliminary
01/25/24 14:01 Blood Culture - Preliminary
Blood/Venous Positive culture in progress
Gram Stain - Preliminary
01/25/24 11:49 Influenza Types A & B (JAZ) - Final
Nasal Swab Negative for Influenza A & B, NAAT
Negative results must be combined with clinical observations
and patient history.
Nucleic Acid Amplification test (NAAT)performed on the
[employer] NOW platform.
Care Review
Plan reviewed with: Physician (Dr. Hankins and team)
--- NOTE | 2024-01-26 14:03 | CM ---
Met with patient and his who was at bedside to obtain information for assessment. Patient stated that he lives with his in a two story home with one step to enter. He described himself as independent with ADLs, personal care, dressing and
bathing. 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 He drives and can get to his appointments and do all of his own shopping.
He has had services in the past through .
He has been to [facility] in the past for SNF.
Patient has a prescription plan and uses [facility] in [place] for all of his medications.
Patient's PCP is, Dr. Leone.
Patient stated that he feels like he is at baseline and would like to return home with his when medically cleared. Patient's confirmed that she will take patient home.
Plan: Case management will continue to follow and assist with discharge planning. Home when stable.
[2024-01-26 14:48] VITALS: BP 143/69
--- NOTE | 2024-01-26 15:05 | CON.GI ---
Addendum entered and electronically signed by Manuel Scott DO 01/26/24 17:42:
I saw and examined the patient.
The SOAPING DEPARTMENT SUPERVISOR's note was reviewed and I agree with the note.
Comment: Mr. 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
surgery) who re-presented to the ED with chills and fevers and now found to have recurrent GNR bacteremia with Klebsiella on recent blood cultures 01/25/24. Of note, previously evaluated with ID in the past at [facility] and possibly felt to be a biliary
source. Last colonoscopy 10/2023 grossly normal. Currently he is without any RUQ or other abdominal pain and recent LFTs reassuring with T Bili 0.4 with D Bili 0.2. Unable to receive MRI/MRCP as patient's PPM is not MRI compatible. Clinically doubt
cholangitis, however would still obtain CT Abd/pelvis w/ IV contrast to r/o any other intra-abdominal process along with assessing hepatobiliary tree given patient's anatomy. EUS would be technically challenging given patient's Whipple, however
would further discuss with Dr. Anton regarding pursuing possible EUS with ERCP given patient's recurrent bacteremia. Will await results of CT and would continue to trend LFTs while inpatient. Continue IV abx as per ID. Rest of care as outlined below.
GI team will continue to follow. Please call for any questions or concerns.
Original Note:
Consultation
-
Date/Time Consultation Requested: 01/26/24 1445
Date/Time Consultation Performed: 01/26/24 1500
Requesting Provider: Talat Savage MD
Performing Provider: NATHANAEL Noel, Manuel Scott DO
Reason for Consultation: klebsiella bacteremia
Medical History
Chief Complaint / HPI
Chief Complaint: fever, chills
History of Present Illness:
Pt is an 78yo with hx pancreatic CA - neuroendocrine tumor s/p Whipple 2016, melanoma resection, prostate CA with prior radiation, duodenal ulcer, asthma, GERD, hepatic cyst, HTN, NIDDM, sigmoidectomy for diverticular disease, SSS with pacer, SVT
with ablation, HTN, hypercholesterolemia with onset of shaking chills with low grade fever. Work up on admission with noted Klebsiella bacteremia with multiple recurrent episodes over the years with this being 7th episode in past few years. Pt has
been followed by [facility] for several years post resection but now noted with change in surgeon with less frequent follow in past few years. He did have follow up after July admission in [facility] with ID with completed EGD/colon. Pt admits to day prior to
admission noted nausea with dry heaves. He otherwise denies issues with odynophagia, dysphagia, GERD, vomiting, wt loss, diarrhea, constipation, or rectal bleeding.
EGD: last at [facility] in 10/2023 EGD/small bowel enteroscopy at [facility]: LA Grade B reflux esophagitis with no bleeding. Gastritis, biopsied (reactive gastropathy, neg H. pylori). Widely patent pylorus-sparing Whipple, characterized by
congestion, erosion, erythema and friable mucosa was found in the duodenum, Biopsied (chronic mucosal injury). Normal examined jejunum.
Colonoscopy: last at [facility] 10/2023 diverticulosis, patent anastomosis
Past Medical History
Past Medical History: Arrhythmias (SVT with prior ablation), Asthma, Cancer (pancreatic CA with prior whipple- neuroendocrine tumor 2015, melanoma with resection, prostate CA with prior radiation), CVA (TIA 2006 ), GERD, HTN, Hypercholesterolemia,
NIDDM and Other (recurrent Ecoli bacteremia, duodenal ulcer, spinal stenosis, hepatic cyst, hepatic steatosis )
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
repair )
Social History
Tobacco: Former Smoker (quit 40 years ago )
Alcohol: Daily (1-2 glasses wine )
Drug: None
Personal:
Living: With Family
Employment: Retired
Family History
Family History: Other (no family hx colon CA or polyps)
Allergies / Home Medications
Allergy/AdvReac Type Severity Reaction Status Date / Time
No Known Allergies Allergy Verified 01/25/24 11:42
�Medication �Instructions �Recorded
psyllium husk (aspartame) 3.4 gram 1 packet PO DAILY Constipation 06/03/18
oral powder packet (Metamucil
Fiber Singles)
dicyclomine 10 mg capsule 10 mg PO TIDPRN PRN spasms 04/18/20
valsartan 80 1 tab PO DAILY Blood pressure 05/29/22
mg-hydrochlorothiazide 12.5 mg
tablet (Diovan HCT)
qpprnpzn-sh-rbivq 300 mcg-K 60 1 tab PO DAILY Supplement 11/09/22
mcg-lycop 600 mcg-lutein 300 mcg
tablet (Centrum Silver Men)
wrtghi-hmtzrybc-ooicotg 3 cap PO MEALS Gastrointestinal 02/15/23
24,000-76,000-120,000 unit Issue
capsule,delayed rel (Creon)
Review of Systems
-
History Source: Patient and Family
Constitutional: Reports Fever and Fatigue
EENT: Reports No Symptoms
Respiratory: Reports No Symptoms
Cardiac: Reports No Symptoms
Abdomen/GI: Reports Nausea (with dry heaves prior to admission )
: Reports No Symptoms
Musculoskeletal: Reports No Symptoms
Skin: Reports No Symptoms
Neurological: Reports No Symptoms
Endocrine: Reports No Symptoms
Hematologic/Lymphatic: Reports No Symptoms
Vital Signs
Temp Pulse Resp BP Pulse Ox
97.8 F 68 17 143/69 100
01/26/24 14:48 01/26/24 14:48 01/26/24 14:48 01/26/24 14:48 01/26/24 14:48
Physical Exam
Exam
General: Well Developed, Well Nourished and No Apparent Distress
HEENT: Normocephalic and Other (? minimal jaundice )
Respiratory: Clear
Cardiac: Regular Rhythm
GI: Soft, Non Tender and Non Distended
Musculoskeletal: No Clubbing and No Cyanosis
Skin: Dry
Neuro: Awake, Alert and AO x 3
Psych: Calm
Results
WBC 6.1 10^3/uL (4.8-10.8) 01/26/24 07:00
Hgb 12.1 g/dL (13.0-18.0) L 01/26/24 07:00
Hct 35.2 % (39.0-52.0) L 01/26/24 07:00
MCV 90.7 fL (80.0-94.0) 01/26/24 07:00
Plt Count 178 10^3/uL (130-400) 01/26/24 07:00
Absolute Neuts (auto) 7.3 10^3/uL (1.4-6.5) H 01/25/24 11:49
Sodium 134 mmol/L (135-145) L 01/26/24 07:00
Potassium 3.9 mmol/L (3.5-5.1) 01/26/24 07:00
Chloride 102 mmol/L (98-107) 01/26/24 07:00
Carbon Dioxide 26 mmol/L (22-30) 01/26/24 07:00
BUN 24 mg/dl (9-20) H 01/26/24 07:00
Creatinine 0.9 mg/dL (0.7-1.3) 01/26/24 07:00
Calcium 8.3 mg/dl (8.4-10.2) L 01/26/24 07:00
Total Bilirubin Cancelled 01/25/24 11:49
AST Cancelled 01/25/24 11:49
ALT Cancelled 01/25/24 11:49
Alkaline Phosphatase Cancelled 01/25/24 11:49
Diagnostic Image Results:
07/19/23-[address] evidence for an acute inflammatory process in the abdomen or pelvis. Stable chronic findings,-- s/p whipple, atrophy on pancreatic parechyma liver cyst, hepatic steatosis, non obstructing renal calculi, DDD. brachytherapy seed
implants
Prior GI Procedures:
EGD: [facility] in 10/2023 EGD/small bowel enteroscopy at [facility] [place]: LA Grade B reflux esophagitis with no bleeding. Gastritis, biopsied (reactive gastropathy, neg H. pylori). Widely patent pylorus-sparing Whipple, characterized by congestion,
erosion, erythema and friable mucosa was found in the duodenum, Biopsied (chronic mucosal injury). Normal examined jejunum.
Colonoscopy: last at [facility] 10/2023 diverticulosis, patent anastomosis
Assessment / Plan
-
Pt is an 78yo with hx pancreatic CA - neuroendocrine tumor s/p Whipple 2015, melanoma resection, prostate CA with prior radiation, duodenal ulcer, asthma, GERD, hepatic cyst, HTN, NIDDM, sigmoidectomy for diverticular disease, SSS with pacer, SVT
with ablation, HTN, hypercholesterolemia with onset of shaking chills with low grade fever. Work up on admission with noted Klebsiella bacteremia with multiple recurrent episodes over the years with this being 7th episode in past few years. Pt has
been followed by [facility] for several years post resection but now noted with change in surgeon with less frequent follow in past few years. He did have follow up after July admission in [place] with completed EGD/colon with normal results. Pt admits to
day prior to admission noted nausea with dry heaves.
10/2023 EGD/small bowel enteroscopy at [facility]: LA Grade B reflux esophagitis with no bleeding. Gastritis, biopsied (reactive gastropathy, neg H. pylori). Widely patent pylorus-sparing Whipple, characterized by congestion, erosion, erythema
and friable mucosa was found in the duodenum, Biopsied (chronic mucosal injury). Normal examined jejunum.
Colonoscopy: at [facility] 10/2023 diverticulosis, patent anastomosis
-recurrent bacteremia Ecoli 02/2023, 07/2023 Klebsiella 01/2024 with prior episode H/o E. coli bacteremia 2017, Klebsiella/Aeromonas bacteremia 2019; Klebsiella bacteremia 2018
-nausea/dry heaves prior to admission
-hx pancreatic CA- neuroendocrine tumor resection with Whipple 2015
-EGD/enteroscopy 10/2023 with grade B reflux gastritis, pylorus sparing whipple with congestion, erosion, erythema and friable mucosa in duodenum
other med problems:
-melanoma resection
-prostate CA with prior radiation
-sigmoid resection for diverticular disease
-duodenal ulcer
-NIDDM
-asthma
-GERD
-hepatic cyst
-SSS with pacer
-SVT with prior ablation
-HTN
-hyperlipidemia
-hip fracture with gamma nail
PLAN:
Etiology of recurrent bacteremia unclear- biliary vs other
s/p EGD/colon completed in October with duodenal erosions
add LFT's and lipase- not completed since admission some prior elevation with bacteremia
will add CT A/p with IV and oral - pt unable to get MRI with hx old pacer
cont abx per ID
will review with Dr. Anton role for EUS/ERCP with recurrent process
ADA diet- NPO for AM to decide on need for follow up
pt on creon prior to admission
family updated
-
-
Thank you for consultation and allowing me to participate in the patient's care. Please call the computer operations specialist GI physician during the after hours with any questions or concerns.
[2024-01-26 15:53] LABS: ALT (SGPT) 60 U/L (0-50); AST (SGOT) 70 U/L (17-59); Albumin 3.2 g/dl (3.5-5.0); Alkaline Phosphatase 74 U/L (38-126); Direct Bilirubin 0.2 mg/dl (0.0-0.4); Total Bilirubin 0.4 mg/dl (0.2-1.3); Total Protein 5.6 g/dl (6.3-8.2)
[2024-01-26 16:04] LABS: Lipase < 10 U/L (23-300)
[2024-01-26 16:27] LABS: Glucose - Point of Care 175 mg/dl (70-99)
[2024-01-26] MEDS: NOVOLOG FLEXPEN-LOW RESISTANCE 1 UNITS SC (17:35)
[2024-01-26] MEDS: LOVENOX 40 MG SC (17:36)
[2024-01-26] MEDS: ROCEPHIN 2000 MG IV (17:37)
[2024-01-26] MEDS: STERILE WATER FOR INJECTION 20 ML IV (17:37)
[2024-01-26 19:00] VITALS: BP 145/81
[2024-01-26 22:03] LABS: Glucose - Point of Care 200 mg/dl (70-99)
[2024-01-26 23:00] VITALS: BP 147/76
[2024-01-27 03:00] VITALS: BP 150/77
[2024-01-27 05:14] VITALS: BMI 22.1
[2024-01-27 06:27] LABS: Glucose - Point of Care 143 mg/dl (70-99)
[2024-01-27 07:38] VITALS: BP 113/60
[2024-01-27 07:53] LABS: INR 0.98; PT 13.4 Sec (11.4-14.6)
--- NOTE | 2024-01-27 08:02 | W.PN.HOSP.TC ---
Addendum entered and electronically signed by Jaron Majano MD 01/27/24 23:40:
Attending Addendum-
I saw and evaluated the patient. I reviewed the resident�s note and agree with findings and plan as documented in the resident�s note. Sub: Feels greatly improved. No further fevers chills rigors N/V. has mild abd pain. seen with present. Full
12 point ROS reviewed and negative except as documented Exam: Vitals reviewed in chart GEN-NAD heart RRR lungs clear abd mild TTP RUQ LE no edema
# Sepsis + bacteremic secondary to probable biliary source
- bacteremic x 7 times post Whipple
- Blood cx pos x 2 sets kleb pneumo await sensi
- repeat blood cx- NGTD
- Zosyn->Rocephin # 3
- Infectious Disease input appreciated
- appreciate GI input- for ERCP as OP
# Hyponatremia
- resolving
- repeat BMP in am
- encourage fluids
# Transaminitis
- resolving
- cont to trend
# Diabetes Mellitus post- Whipple
- HgbA1c 7.7
- unclear why not on home PO DM meds
- start metformin on DC
- Monitor sugars and continue coverage insulin
# Essential Hypertension
-Continue Diovan
-Hx Pancreatic CA s/p Whipple
-Hx Prostate CA s/p Radiation
-Hx Sick Sinus Syndrome s/p Pacemaker
DVT Proph: Lovenox
Code Status: Full Code
Time spent coordinating care, review of plan of care with resident, personally reviewed records in EMR, med rec, consults, notes, labs, radiology, d/w nursing and ID � 55 mins
Original Note:
Today's Communication/Plan
-
Continue ceftriaxone
Repeat blood cultures pending
Await on GI decision for ERCP/EUS
Follow temperature curve and WBC
Assessment / Plan
Assessment / Plan
Impression
Fever secondary to gram-negative bacteremia
Type 2 diabetes mellitus with hyperglycemia
Essential hypertension
Transaminitis
Hyponatremia
History of pancreatic cancer s/p Whipple
History of prostate cancer s/p radiation
History of sick sinus syndrome s/p pacemaker placement
Assessment and plan
Klebsiella bacteremia
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
Repeat blood cultures
Afebrile in the past 24 hours
Continue ceftriaxone 2 g IV every 24
Negative for influenza, COVID
Appreciate ID input
Follow temperature curve and WBC
History of pancreatic cancers s/p Whipple
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
Suspect a biliary source. Patient will require ERCP
He has had EGD and colonoscopy
Appreciate GI input
Await for GI decision - they will discuss with Dr Anton on ERCP/EUS
Transaminitis
Continue to trend
Type 2 diabetes mellitus with hyperglycemia
Previous A1c 7.7
Sliding scale
Diabetic diet
Essential hypertension
Continue Diovan
#History of prostate cancer s/p radiation
#History of sick sinus syndrome s/p pacemaker placement
DVT prophylaxis-Lovenox
Anticipated Discharge: > 48 hours
Subjective/Interval History
-
Date of Service: January 27, 2024
no overnight events
Objective Data
-
Labs:
Laboratory Results
01/27/24
07:26
WBC Pending
Hgb Pending
Hct Pending
Plt Count Pending
PT 13.4
INR 0.98
Sodium Pending
Potassium Pending
Chloride Pending
Carbon Dioxide Pending
BUN Pending
Creatinine Pending
Glucose Pending
Calcium Pending
Vital Signs:
Vital Signs
Temp Pulse Resp BP Pulse Ox
98.0 F 62 16 113/60 95
01/27/24 07:38 01/27/24 07:38 01/27/24 07:38 01/27/24 07:38 01/27/24 07:38
I&O
01/26/24 01/27/24 01/28/24
06:59 06:59 06:59
Intake Total 1560 / 1560 1200 / 1200
Balance 1560 / 1560 1200 / 1200
Review of Systems
-
All other systems: Reviewed and negative
Physical Exam
-
General: No Apparent Distress and Comfortable
HEENT: Normocephalic and Atraumatic
Respiratory: Clear to Auscultation
Cardiac: Regular Rhythm
GI: Soft, Nontender and Nondistended
Musculoskeletal: No Edema
Neuro: AO x 3
Psych: Calm
Data Reviewed
-
Labs: Labs Reviewed by me and Discussed with Physician
[2024-01-27] MEDS: OMNIPAQUE 50 ML PO (08:10)
[2024-01-27 08:11] LABS: Blood Urea Nitrogen 18 mg/dl (9-20); Calcium 8.2 mg/dl (8.4-10.2); Carbon Dioxide 25 mmol/L (22-30); Chloride 99 mmol/L (98-107); Estimated Creatinine Clearance 65 ml/min; Glucose 154 mg/dl (70-99); Sodium 134 mmol/L (135-145); eGFR > 60.00
[2024-01-27 08:25] LABS: ALT (SGPT) 56 U/L (0-50); AST (SGOT) 50 U/L (17-59)
[2024-01-27 08:29] LABS: % Basophils 0.5 % (0-2); % Immature Granulocytes 0.5 % (0-0.5); % Lymphocytes 27.1 % (20.5-51.1); % Monocytes 15.6 % (1.7-9.3); % Neutrophils 54.3 % (42.2-75.2); Absolute Eosinophils 0.1 10^3/uL (0-0.7); Absolute Lymphocytes 1.6 10^3/uL (1.2-3.4); Absolute Monocytes 0.9 10^3/uL (0.1-0.6); Absolute Neutrophils 3.3 10^3/uL (1.4-6.5); Hematocrit 38.1 % (39.0-52.0); Hemoglobin 13.2 g/dL (13.0-18.0); Mean Corp Hgb Conc. 34.6 g/dL (33.0-37.0); Mean Corpuscular Hgb 31.5 pg (27.0-31.0); Mean Corpuscular Volume 90.9 fL (80.0-94.0); Mean Platelet Volume 11.8 fL (7.4-10.4); Nucleated Red Blood Cells % 0 % (-); Platelet Count 196 10^3/uL (130-400); Red Blood Cell Count 4.19 10^6/uL (4.70-6.10); Red Cell Dist. Width 12.2 % (11.5-14.5)
[2024-01-27] MEDS: NOVOLOG FLEXPEN-LOW RESISTANCE SC ×2 (09:05→12:35)
[2024-01-27] MEDS: DIOVAN 80 MG PO (09:05)
[2024-01-27] MEDS: ZENPEP DELAYED RELEASE CAPSULE PO (09:46)
[2024-01-27 11:19] VITALS: BP 121/71
--- NOTE | 2024-01-27 11:27 | W.PN.ID1 ---
Date of Service
Date of Service: January 27, 2024
Today's Communication
Continue ceftriaxone.
See below.
Assessment / Plan
# Fever - resolved
# Klebsiella bacteremia
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 coli bacteremia 2017, Klebsiella/Aeromonas bacteremia 2018; 3 Klebsiella bacteremia 04/14/17; E coli
bacteremia, 02/2023, 07/2023)
- 09/09/2023 saw ID at [facility] who agreed with suspected biliary source and recommended EGD/ERCP
- 10/14/2023 EGD/small bowel enteroscopy at [facility]: LA Grade B reflux esophagitis with no bleeding. Gastritis, biopsied (reactive gastropathy, neg H. pylori). Widely patent pylorus-sparing Whipple, characterized by congestion, erosion,
erythema and friable mucosa was found in the duodenum, Biopsied (chronic mucosal injury). Normal examined jejunum.
- 10/14/2023 Colonoscopy at [place]: diverticulosis, patent end to end colo-colonic anastomosis.
- 01/05/24 TTE no valvular abnormalities
PlaN:
- Still suspect biliary source - possible intermittent biliary obstruction/spasms
- Unable to have MRI abd due to presence of PPM
- For CT a/p today.
- Appreciate GI - will discuss with Dr. Anton regarding feasibility of ERCP/EUS.
- Repeat blood cx' pending
- Continue ceftriaxone pending final cx.
-If unable to control source, may eventually need suppressive abx.
# Conditions [employer]
IDDM
Neuropathy
SVT s/p Pacemaker
Pancreatic CA s/p Whipple 2016 at [facility]
H/o Klebsiella/Aeromonas bacteremia 2018; 3 Klebsiella bacteremia 04/14/17; E coli bacteremia 2017, 02/2023, 07/2023
Diverticulitis and is status post bowel resection for diverticulitis (2000)
HTN
HLD
nephrolithiasis
Melanoma excision
Prostate CA s/p XRT
Right hip fracture gamma nailing
Chief Complaint
-: Bacteremia
Subjective / Review of Systems
Feeling better today. Some nausea from po contrast.
Vital Signs / Physical Exam
Vital Signs
Vital Signs
Temp Pulse Resp BP Pulse Ox
97.9 F 89 16 121/71 98
01/27/24 11:19 01/27/24 11:19 01/27/24 11:19 01/27/24 11:19 01/27/24 11:19
Physical Exam
Constitutional: No Acute Distress and Comfortable
Cardiovascular: Regular Rate and S1/S2
Pulmonary: Clear
Gastrointestinal: Soft, Non Tender, Non Distended and Normal Bowel Sounds
Extremities: Negative Edema
Neurological: AO x 3
Objective Data
Lab Data
Lab Results
01/27/24 07:26
01/27/24 07:26
PT 13.4 Sec (11.4-14.6) 01/27/24 07:26
INR 0.98 01/27/24 07:26
Estimated Creat Clear 65 ml/min 01/27/24 07:26
Lactic Acid Cancelled 01/25/24 18:00
Total Bilirubin 0.4 mg/dl (0.2-1.3) 01/26/24 07:00
AST 50 U/L (17-59) 01/27/24 07:26
ALT 56 U/L (0-50) H 01/27/24 07:26
Alkaline Phosphatase 74 U/L (38-126) 01/26/24 07:00
Most recent labs reviewed.
Micro Results:
01/25/24 14:01 Blood Culture - Preliminary
Blood/Venous Klebsiella pneumoniae
Gram Stain - Preliminary
01/25/24 14:01 Blood Culture - Preliminary
Blood/Venous Klebsiella pneumoniae
Gram Stain - Preliminary
01/26/24 14:17 Blood Culture - Pending
Blood/Venous
01/26/24 13:40 Blood Culture - Pending
Blood/Venous
01/25/24 11:49 Influenza Types A & B (JAZ) - Final
Nasal Swab Negative for Influenza A & B, NAAT
Negative results must be combined with clinical observations
and patient history.
Nucleic Acid Amplification test (NAAT)performed on the
[employer] platform.
[2024-01-27 11:37] LABS: Glucose - Point of Care 120 mg/dl (70-99)
[2024-01-27] MEDS: METAMUCIL, KONSYL 1 PACKET PO (12:39)
[2024-01-27] MEDS: THERAGRAN 1 TABLET PO (12:39)
[2024-01-27] MEDS: ZENPEP DELAYED RELEASE CAPSULE 3 CAPSULE PO ×2 (12:41→17:21)
[2024-01-27 14:40] VITALS: BP 131/68
--- NOTE | 2024-01-27 15:19 | W.PN.GI.CBS2 ---
Addendum entered and electronically signed by Manuel Scott DO 01/27/24 19:19:
I saw and examined the patient.
The BRANCHER's note was reviewed and I agree with the note.
Comment: Reviewed case with Dr. Anton as detailed below and personally reviewed CT imaging without any biliary ductal dilatation. LFTs continue to remain wnl. At this time, no plans for either EUS or ERCP while inpatient. Further, EUS would be
technically challenging given patient's anatomy given his history of prior Whipple. Ideally, patient should follow-up at [facility] as he is well known to them (given hx of prior pyloric-sparing Whipple in 2016). He may follow-up with Interventional GI
with Dr. Pollo Beck or he may follow-up with Dr. Anton at GI as an outpatient to discuss risks versus benefits of pursuing ERCP as patient is without any objective evidence of cholangitis. Kristine provided additional contact information as well
for patient for further continuity of care. See rest of care as outlined below.
GI team will sign-off. Please call back with any questions or concerns.
Original Note:
Today's Communication / Plan
-
Etiology of recurrent bacteremia unclear- biliary vs other
s/p EGD/colon completed in October with duodenal erosions
LFT minimal elevation
CT stable no ductal dilation
I reviewed results with patient and Dr. Anton
Dr. Anton suggest outpatient follow up with Dr. Anton or Dr. Beck at [place] where whipple was completed to discuss ERCP
--EUS may be challenging with hx whipple
may be difficult with anatomy and would need to review risk vs benefit as minimal LFT elevation and no ductal dilatation noted on CT
pt unable to get MRI with hx old pacer
cont abx per ID-- also discussing suppressive abx with ID
cont ADA diet
cont creon
I left contact information for GI follow up for pt to schedule when he decides who he prefers to follow up. If following up here requested pt to bring [place] records he can get from portal.
Assessment / Plan
-
Pt is an 78yo with hx pancreatic CA - neuroendocrine tumor s/p Whipple 2016, melanoma resection, prostate CA with prior radiation, duodenal ulcer, asthma, GERD, hepatic cyst, HTN, NIDDM, sigmoidectomy for diverticular disease, SSS with pacer, SVT
with ablation, HTN, hypercholesterolemia with onset of shaking chills with low grade fever. Work up on admission with noted Klebsiella bacteremia with multiple recurrent episodes over the years with this being 7th episode in past few years. Pt has
been followed by [place] for several years post resection but now noted with change in surgeon with less frequent follow in past few years. He did have follow up after July admission in [place] with completed EGD/colon with normal results. Pt admits to
day prior to admission noted nausea with dry heaves.
01/26. CT Abd/pel W Iv And Oral Contr
Status post Whipple procedure. No evidence for biliary ductal dilation.
Stable small round soft tissue density in the medial portacaval region, which is likely benign reactive inflammatory lymph node.
Hepatic cysts.
Heterogeneity of enhancement of the liver, which is probably perfusion anomaly and/or fatty infiltration of the left lobe of the liver.
Small amount of free fluid in the pelvic cul-de-sac, nonspecific. Trace amount of posterior right pleural fluid. Moderate elevation right hemidiaphragm, stable.
10/2023 EGD/small bowel enteroscopy at [facility]: LA Grade B reflux esophagitis with no bleeding. Gastritis, biopsied (reactive gastropathy, neg H. pylori). Widely patent pylorus-sparing Whipple, characterized by congestion, erosion, erythema
and friable mucosa was found in the duodenum, Biopsied (chronic mucosal injury). Normal examined jejunum.
Colonoscopy: at [place] 10/2023 diverticulosis, patent anastomosis
-recurrent bacteremia Ecoli 02/2023, 07/2023 Klebsiella 01/2024 with prior episode H/o E. coli bacteremia 2017, Klebsiella/Aeromonas bacteremia 2019; Klebsiella bacteremia 2018
-minimal LFT elevation
-nausea/dry heaves prior to admission
-hx pancreatic CA- neuroendocrine tumor resection with Whipple 2015
-EGD/enteroscopy 10/2023 with grade B reflux gastritis, pylorus sparing whipple with congestion, erosion, erythema and friable mucosa in duodenum
other med problems:
-melanoma resection
-prostate CA with prior radiation
-sigmoid resection for diverticular disease
-duodenal ulcer
-NIDDM
-asthma
-GERD
-hepatic cyst
-SSS with pacer
-SVT with prior ablation
-HTN
-hyperlipidemia
-hip fracture with gamma nail
PLAN:
Etiology of recurrent bacteremia unclear- biliary vs other
s/p EGD/colon completed in October with duodenal erosions
LFT minimal elevation
CT stable no ductal dilation
I reviewed results with patient and Dr. Anton
Dr. Anton suggest outpatient follow up with Dr. Anton or Dr. Beck at [place] where whipple was completed to discuss ERCP
--EUS may be challenging with hx whipple
may be difficult with anatomy and would need to review risk vs benefit as minimal LFT elevation and no ductal dilatation noted on CT
pt unable to get MRI with hx old pacer
cont abx per ID-- also discussing suppressive abx with ID
cont ADA diet
cont creon
I left contact information for GI follow up for pt to schedule when he decides who he prefers to follow up. If following up here requested pt to bring [place] records he can get from portal.
Subjective
Subjective
Date of Service: January 27, 2024
feeling well no recurrent fever, chills or issues today
Objective
Data Reviewed
Laboratory Data:
Laboratory Results
01/27/24 07:26
01/27/24 07:26
Laboratory Results
PT 13.4 Sec (11.4-14.6) 01/27/24 07:26
INR 0.98 01/27/24 07:26
Total Bilirubin 0.4 mg/dl (0.2-1.3) 01/26/24 07:00
AST 50 U/L (17-59) 01/27/24 07:26
ALT 56 U/L (0-50) H 01/27/24 07:26
Alkaline Phosphatase 74 U/L (38-126) 01/26/24 07:00
Lipase < 10 U/L (23-300) L 01/26/24 07:00
Vital Signs and I&O:
Vital Signs
Temp Pulse Resp BP Pulse Ox
98.0 F 64 16 131/68 97
01/27/24 14:40 01/27/24 14:40 01/27/24 14:40 01/27/24 14:40 01/27/24 14:40
I&O
01/26/24 01/27/24 01/28/24
06:59 06:59 06:59
Intake Total 1560 / 1560 1200 / 1200
Balance 1560 / 1560 1200 / 1200
Physical Exam
Physical Exam
HEENT: Anicteric and Moist mucous membranes
Cardiology: Normal Sinus Rhythm
Pulmonary: Clear
GI: Soft, Non Distended and Tender
Extremities: No Edema
Neuro: Non Focal
[2024-01-27 16:49] LABS: Glucose - Point of Care 251 mg/dl (70-99)
[2024-01-27] MEDS: NOVOLOG FLEXPEN-LOW RESISTANCE 3 UNITS SC (17:21)
[2024-01-27] MEDS: STERILE WATER FOR INJECTION 20 ML IV (17:22)
[2024-01-27] MEDS: ROCEPHIN 2000 MG IV (17:22)
[2024-01-27] MEDS: LOVENOX 40 MG SC (17:22)
[2024-01-27 19:45] VITALS: BP 141/72
[2024-01-27 21:07] LABS: Glucose - Point of Care 213 mg/dl (70-99)
[2024-01-27 23:42] VITALS: BP 131/59
[2024-01-28 03:38] VITALS: BP 138/72
[2024-01-28 06:05] VITALS: BMI 21.9
[2024-01-28 07:21] VITALS: BP 132/57
[2024-01-28 07:40] LABS: Glucose - Point of Care 158 mg/dl (70-99)
[2024-01-28 08:22] LABS: % Basophils 0.4 % (0-2); % Eosinophils 3.6 % (0-6); % Immature Granulocytes 0.4 % (0-0.5); % Monocytes 13.2 % (1.7-9.3); % Neutrophils 52.4 % (42.2-75.2); Absolute Eosinophils 0.2 10^3/uL (0-0.7); Absolute Lymphocytes 1.6 10^3/uL (1.2-3.4); Absolute Monocytes 0.7 10^3/uL (0.1-0.6); Absolute Neutrophils 2.8 10^3/uL (1.4-6.5); Hematocrit 37.4 % (39.0-52.0); Mean Corp Hgb Conc. 34.8 g/dL (33.0-37.0); Mean Corpuscular Hgb 31.6 pg (27.0-31.0); Mean Platelet Volume 11.8 fL (7.4-10.4); Nucleated Red Blood Cells % 0 % (-); Platelet Count 213 10^3/uL (130-400); Red Blood Cell Count 4.11 10^6/uL (4.70-6.10); Red Cell Dist. Width 12.2 % (11.5-14.5); White Blood Cell Count 5.2 10^3/uL (4.8-10.8)
[2024-01-28] MEDS: ZENPEP DELAYED RELEASE CAPSULE 3 CAPSULE PO ×3 (09:06→17:23)
[2024-01-28] MEDS: DIOVAN 80 MG PO (09:07)
[2024-01-28] MEDS: THERAGRAN 1 TABLET PO (09:07)
[2024-01-28] MEDS: NOVOLOG FLEXPEN-LOW RESISTANCE 1 UNITS SC (09:07)
[2024-01-28] MEDS: METAMUCIL, KONSYL 1 PACKET PO (09:07)
--- NOTE | 2024-01-28 09:18 | W.PN.HOSP.TC ---
Addendum entered and electronically signed by Jaron Majano MD 01/28/24 23:12:
Attending Addendum-
I saw and evaluated the patient. I reviewed the resident�s note and agree with findings and plan as documented in the resident�s note. Sub: No further fevers chills rigors N/V. has mild abd pain. Full 12 point ROS reviewed and negative except as
documented Exam: Vitals reviewed in chart GEN-NAD heart RRR lungs clear abd mild TTP RUQ LE no edema
# Sepsis + bacteremic secondary to probable biliary source
- recurrent bacteremia post Whipple
- Blood cx pos x 2 sets- kleb pneumo-sensi resulted
- repeat blood cx- NGTD x 48hours
- Zosyn->Rocephin # 4
- Infectious Disease input appreciated-transition to cephalexin 500 mg p.o. 4 times daily on DC->02/04.
- start maintenance therapy with cephalexin 500 mg p.o. twice daily on 02/05 x 2 weeks until follow-up in the office.
- appreciate GI input- for ERCP as OP
# Hyponatremia
- resolving
- encourage fluids
# Transaminitis
- resolving
# Diabetes Mellitus post- Whipple
- HgbA1c 7.7
- unclear why not on home PO DM meds
- start metformin
- Monitor sugars and continue coverage insulin
# Essential Hypertension
-Continue Diovan
-Hx Pancreatic CA s/p Whipple
-Hx Prostate CA s/p Radiation
-Hx Sick Sinus Syndrome s/p Pacemaker
DVT Proph: Lovenox
Code Status: Full Code
Dispo DC in am if afebrile and BC NGTD
Time spent coordinating care, review of plan of care with resident, personally reviewed records in EMR, med rec, consults, notes, labs, radiology, d/w nursing and ID � 52mins
Original Note:
Today's Communication/Plan
-
Repeat blood culture preliminary shows no growth
Wait for final cultures
If repeat blood cultures remain negative over the next 24 hours, plan to transition to cephalexin 500 mg PO QID until 02/04 per ID
Then plan to continue cephalexin BID x 2 weeks until outpatient F/U with ID
Assessment / Plan
Assessment / Plan
Impression
Fever secondary to gram-negative bacteremia
Type 2 diabetes mellitus with hyperglycemia
Essential hypertension
Transaminitis
Hyponatremia
History of pancreatic cancer s/p Whipple
History of prostate cancer s/p radiation
History of sick sinus syndrome s/p pacemaker placement
Assessment and plan
Klebsiella bacteremia
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
Repeat blood cultures preliminary shows no growth. Final cx pending
Afebrile in the past 24 hours
Continue ceftriaxone 2 g IV every 24
Appreciate ID input
Follow temperature curve and WBC
If repeat blood cultures remain negative over the next 24 hours, plan to transition to cephalexin 500 mg PO QID until 02/04 per ID
Then plan to continue cephalexin BID x 2 weeks until outpatient F/U with ID
History of pancreatic cancers s/p Whipple
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
Suspect a biliary source. Patient will require ERCP
Appreciate GI input
EUS will be challenging given patient's history of prior Whipple per GI
Recommended to follow-up with [facility], or with Dr. Anton outpatient to discuss risk and benefits of the procedure
Transaminitis
Improved
Type 2 diabetes mellitus with hyperglycemia
Previous A1c 7.7
Sliding scale
Diabetic diet
Essential hypertension
Continue Diovan
#History of prostate cancer s/p radiation
#History of sick sinus syndrome s/p pacemaker placement
DVT prophylaxis-Lovenox
Anticipated Discharge: 24 - 48 hours
Subjective/Interval History
-
Date of Service: January 28, 2024
No overnight events
Objective Data
-
Labs:
Laboratory Results
01/28/24
07:23
WBC 5.2
Hgb 13.0
Hct 37.4 L
Plt Count 213
Vital Signs:
Vital Signs
Temp Pulse Resp BP Pulse Ox
97.8 F 65 14 132/57 99
01/28/24 07:21 01/28/24 07:21 01/28/24 07:21 01/28/24 07:21 01/28/24 07:21
I&O
01/27/24 01/28/24 01/29/24
06:59 06:59 06:59
Intake Total 1200 / 1200 960 / 960
Balance 1200 / 1200 960 / 960
Review of Systems
-
All other systems: Reviewed and negative
Skin: Reports Other (Cold sores)
Physical Exam
-
General: No Apparent Distress and Comfortable
HEENT: Normocephalic
Respiratory: Clear to Auscultation
Cardiac: Regular Rhythm
GI: Soft, Nontender and Nondistended
Musculoskeletal: No Edema
Neuro: AO x 3
Psych: Calm
Data Reviewed
-
Labs: Labs Reviewed by me and Discussed with Physician
[2024-01-28] MEDS: ZOVIRAX OINTMENT 5% 1 APPLIC TOPICAL (10:56)
[2024-01-28 11:00] VITALS: BP 146/77
[2024-01-28 11:30] LABS: Glucose - Point of Care 331 mg/dl (70-99)
[2024-01-28] MEDS: NOVOLOG FLEXPEN-LOW RESISTANCE 4 UNITS SC (11:39)
--- NOTE | 2024-01-28 14:18 | W.PN.ID1 ---
Date of Service
Date of Service: January 28, 2024
Today's Communication
Continue antibiotics. See below�
Assessment / Plan
# Fever - resolved
# Klebsiella bacteremia
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 coli bacteremia 2016, Klebsiella/Aeromonas bacteremia 2018; 3 Klebsiella bacteremia 04/14/17; E coli
bacteremia, 02/2023, 07/2023)
- 09/09/2023 saw ID at [facility] who agreed with suspected biliary source and recommended EGD/ERCP
- 10/14/2023 EGD/small bowel enteroscopy at [facility]: LA Grade B reflux esophagitis with no bleeding. Gastritis, biopsied (reactive gastropathy, neg H. pylori). Widely patent pylorus-sparing Whipple, characterized by congestion, erosion,
erythema and friable mucosa was found in the duodenum, Biopsied (chronic mucosal injury). Normal examined jejunum.
- 10/14/2023 Colonoscopy at [place]: diverticulosis, patent end to end colo-colonic anastomosis.
- 01/05/24 TTE no valvular abnormalities
Plan:
- Still suspect biliary source - possible intermittent biliary obstruction/spasms
- Unable to have MRI abd due to presence of PPM
- CT a/p without evidence of biliary ductal dilatation.
- GI with no plan for EUS or ERCP while inpatient.
- Repeat blood cx' pending, but no growth at 24 hours.
- Continue ceftriaxone for today.,
--> If repeat blood cultures remain negative over next 24 hours, and patient clinically stable, transition to cephalexin 500 mg p.o. 4 times daily, to continue through 02/04.
--> Thereafter, would maintain on cephalexin 500 mg p.o. twice daily for 2 weeks until follow-up in the office.
# Conditions [employer]
IDDM
Neuropathy
SVT s/p Pacemaker
Pancreatic CA s/p Whipple 2016 at [facility]
H/o Klebsiella/Aeromonas bacteremia 2019; 3 Klebsiella bacteremia 04/14/17; E coli bacteremia 2017, 02/2023, 07/2023
Diverticulitis and is status post bowel resection for diverticulitis (2000)
HTN
HLD
nephrolithiasis
Melanoma excision
Prostate CA s/p XRT
Right hip fracture gamma nailing
Chief Complaint
-: Bacteremia
Subjective / Review of Systems
Review of Systems: No Fever, No Chills and No Abdominal Pain
Vital Signs / Physical Exam
Vital Signs
Vital Signs
Temp Pulse Resp BP Pulse Ox
98.0 F 68 16 146/77 98
01/28/24 11:00 01/28/24 11:00 01/28/24 11:00 01/28/24 11:00 01/28/24 11:00
Physical Exam
Constitutional: No Acute Distress, Comfortable and Non-toxic
Cardiovascular: Regular Rate and S1/S2
Pulmonary: Clear
Gastrointestinal: Soft, Non Tender, Non Distended, Normal Bowel Sounds, No Rebound and No Guarding
Extremities: Negative Edema
Neurological: AO x 3
Objective Data
Lab Data
Lab Results
01/28/24 07:23
01/27/24 07:26
PT 13.4 Sec (11.4-14.6) 01/27/24 07:26
INR 0.98 01/27/24 07:26
Estimated Creat Clear 65 ml/min 01/27/24 07:26
Lactic Acid Cancelled 01/25/24 18:00
Total Bilirubin 0.4 mg/dl (0.2-1.3) 01/26/24 07:00
AST 50 U/L (17-59) 01/27/24 07:26
ALT 56 U/L (0-50) H 01/27/24 07:26
Alkaline Phosphatase 74 U/L (38-126) 01/26/24 07:00
Most recent labs reviewed.
Micro Results:
01/25/24 14:01 Blood Culture - Preliminary
Blood/Venous Klebsiella pneumoniae
Gram Stain - Preliminary
01/25/24 14:01 Blood Culture - Final
Blood/Venous Klebsiella pneumoniae
Gram Stain - Final
01/26/24 13:40 Blood Culture - Preliminary
Blood/Venous No Growth in 24 hours- Final report to follow
01/26/24 14:17 Blood Culture - Preliminary
Blood/Venous No Growth in 24 hours- Final report to follow
01/25/24 11:49 Influenza Types A & B (JAZ) - Final
Nasal Swab Negative for Influenza A & B, NAAT
Negative results must be combined with clinical observations
and patient history.
Nucleic Acid Amplification test (NAAT)performed on the
[employer] platform.
Blood Culture Final 01/28/24-826
Organism 1 Klebsiella pneumoniae
1. Klebsiella pneumoniae
M.I.C. RX
--------- ---
Amoxicillin/Potas. Clavulanate <=8/4 S
Ampicillin >16 R
Ampicillin/Sulbactam <=4/2 S
Aztreonam <=4 S
Cefazolin <=2 S
Ertapenem <=0.5 S
Ciprofloxacin <=0.25 S
Gentamicin <=2 S
Meropenem <=1 S
Piperacillin/Tazobactam <=8 S
Tetracycline <=4 S
Tobramycin <=2 S
Trimethoprim/Sulfamethoxazole <=2/38 S
[2024-01-28 14:36] VITALS: BP 145/78
[2024-01-28 16:39] LABS: Glucose - Point of Care 248 mg/dl (70-99)
[2024-01-28] MEDS: NOVOLOG FLEXPEN-LOW RESISTANCE 2 UNITS SC (17:22)
[2024-01-28] MEDS: ROCEPHIN 2000 MG IV (17:23)
[2024-01-28] MEDS: LOVENOX 40 MG SC (17:23)
[2024-01-28] MEDS: STERILE WATER FOR INJECTION 20 ML IV (17:24)
[2024-01-28 21:28] LABS: Glucose - Point of Care 226 mg/dl (70-99)
[2024-01-28 23:00] VITALS: BP 149/74
[2024-01-29 06:00] VITALS: BMI 21.8
[2024-01-29 07:00] VITALS: BP 123/71
[2024-01-29 07:56] LABS: Blood Urea Nitrogen 19 mg/dl (9-20); Calcium 8.4 mg/dl (8.4-10.2); Carbon Dioxide 27 mmol/L (22-30); Chloride 101 mmol/L (98-107); Estimated Creatinine Clearance 64 ml/min; Glucose 158 mg/dl (70-99); Potassium 4.1 mmol/L (3.5-5.1); Sodium 135 mmol/L (135-145); eGFR > 60.00
[2024-01-29 08:03] LABS: Glucose - Point of Care 174 mg/dl (70-99)
[2024-01-29] MEDS: NOVOLOG FLEXPEN-LOW RESISTANCE 1 UNITS SC (08:18)
[2024-01-29] MEDS: METAMUCIL, KONSYL 1 PACKET PO (08:19)
[2024-01-29] MEDS: THERAGRAN 1 TABLET PO (08:19)
[2024-01-29] MEDS: DIOVAN 80 MG PO (08:19)
[2024-01-29] MEDS: ZENPEP DELAYED RELEASE CAPSULE 3 CAPSULE PO (08:19)
[2024-01-29 09:00] VITALS: BP 123/71; PULSE 65
--- NOTE | 2024-01-29 12:08 | W.PN.HOSP.TC ---
Today's Communication/Plan
-
dc home
Assessment / Plan
Assessment / Plan
Impression
Fever secondary to gram-negative bacteremia
Type 2 diabetes mellitus with hyperglycemia
Essential hypertension
Transaminitis
Hyponatremia
History of pancreatic cancer s/p Whipple
History of prostate cancer s/p radiation
History of sick sinus syndrome s/p pacemaker placement
Assessment and plan
Klebsiella bacteremia
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
Repeat blood cultures NGTD x 48 hours
- DC home per ID on cephalexin 500 mg p.o. 4 times daily, to continue through 02/04. Thereafter, would maintain on cephalexin 500 mg p.o. twice daily for 2 weeks until follow-up in the office.
History of pancreatic cancers s/p Whipple
Recommended to follow-up with [facility], or with Dr. Anton outpatient to discuss risk and benefits of the procedure
Transaminitis
Improved
Type 2 diabetes mellitus with hyperglycemia
Previous A1c 7.7
Sliding scale
Diabetic diet
Essential hypertension
Continue Diovan
#History of prostate cancer s/p radiation
#History of sick sinus syndrome s/p pacemaker placement
DVT prophylaxis-Lovenox
Code: Full
Anticipated Discharge: Today
Subjective/Interval History
-
Date of Service: January 29, 2024
no complaints
Objective Data
-
Labs:
Laboratory Results
01/29/24
06:18
Sodium 135
Potassium 4.1
Chloride 101
Carbon Dioxide 27
BUN 19
Creatinine 0.9
Glucose 158 H
Calcium 8.4
Vital Signs:
Vital Signs
Temp Pulse Resp BP Pulse Ox
97.9 F 72 16 123/71 97
01/29/24 07:00 01/29/24 07:00 01/29/24 07:00 01/29/24 07:00 01/29/24 07:00
I&O
01/28/24 01/29/24 01/30/24
06:59 06:59 06:59
Intake Total 960 / 960 480 / 480
Balance 960 / 960 480 / 480
Physical Exam
-
General: No Apparent Distress
HEENT: Normocephalic and Atraumatic
Respiratory: Negative Wheezes
Cardiac: Regular Rhythm and S1/S2
GI: Soft and Nontender
Neuro: AO x 3
Psych: Calm
Data Reviewed
-
Total Time Spent with Patient (in minutes): 41
Labs: Labs Reviewed by me
[2024-01-29] MEDS: ZENPEP DELAYED RELEASE CAPSULE PO (12:12)
[2024-01-29] MEDS: NOVOLOG FLEXPEN-LOW RESISTANCE SC (12:12)
--- NOTE | 2024-01-31 16:09 | W.DCSUMMARY ---
Discharge Summary
Discharge Data
Date of Admission: 01/25/24
Date of Discharge: 01/29/24
-
Pending Results: No
Hospital Course
Discharging Physician : Dr. Sky Santos
Disposition : Home
Primary care physician : Zach Lemos
Principal Discharge diagnosis :
Fever secondary to Klebsiella bacteremia
Transaminitis
Hyponatremia
Chronic Discharge diagnosis :
Type 2 diabetes mellitus with hyperglycemia
Essential hypertension
History of pancreatic cancer s/p Whipple
History of prostate cancer s/p radiation
History of sick sinus syndrome s/p pacemaker placement
Hospital Course :
78 year old with history of pancreatic cancer s/p Whipple 2016, prostate cancer s/p XRT, pacemaker placement, recurrent GNR bacteremia who presented to ED today due to shaking chills, ,malaise, fever 100.4. ED evaluation noted fever of 100.4, no
significant leukocytosis noted. Fever secondary to Klebsiella bacteremia. Patient was for started on IV Zosyn which was narrowed to IV ceftriaxone per ID. ID eval appreciated, patient has had 6 prior episodes of gram-negative bacteremia since
2015 post Whipple surgery. Blood cultures appreciated Klebsiella pneumonia pansensitive, repeat blood cultures showed negative growth. Tylenol as needed for fever/headaches. IV ceftriaxone was transitioned to cephalexin 500 mg p.o. 4 times daily
to continue until 02/04. Thereafter would maintain on cephalexin 500 mg p.o. twice daily for 2 weeks until follow-up in the outpatient office with infectious disease specialist.
Important imaging findings :
Chest x-ray 01/25/2024
no acute cardiopulmonary abnormality
Abdominal/pelvis CT 01/27/2024
Status post Whipple procedure. No evidence for biliary ductal dilation. Stable small round soft tissue density in the medial portacaval region, which is likely benign reactive inflammatory lymph node. Hepatic cysts.
Heterogeneity of enhancement of the liver, which is probably perfusion anomaly and/or fatty infiltration of the left lobe of the liver. Small amount of free fluid in the pelvic cul-de-sac, nonspecific. Trace amount of posterior right pleural fluid.
Moderate elevation right hemidiaphragm, stable.
-09/09/2023 saw ID at [facility] who agreed with suspected biliary source and recommended EGD/ERCP
-10/14/2023 EGD/small bowel enteroscopy at [facility]: LA Grade B reflux esophagitis with no bleeding. Gastritis, biopsied (reactive gastropathy, neg H. pylori). Widely patent pylorus-sparing Whipple, characterized by congestion, erosion,
erythema and friable mucosa was found in the duodenum, Biopsied (chronic mucosal injury). Normal examined jejunum.
- 10/14/2023 Colonoscopy at [facility]: diverticulosis, patent end to end colo-colonic anastomosis.
- 01/05/24 TTE no valvular abnormalities
Procedure findings : NONE
Discharge Plan
-
Patient Disposition: Home (Routine Discharge)
Discharge Diagnosis/Procedures: Klebsiella bacteremia
Condition: Fair
Diet: Diabetic, Carb Controlled
Activity: As tolerated
Bathing Restrictions: None
Referrals:
Zach Lemos I., [Family Provider] -
Pollo Beck MD [Non-Admitting Privileges] - (consider follow up with Dr. Beck at [place] or Dr. Anton to discuss ERCP)
Kareem Anton MD [Active] - (follow up with Dr. Beck or Dr. Anton to discuss ERCP - [facility] [phone] ext [phone] Anton )
Priti Osullivan MD [Active] - in one to two weeks (Call office for appointment. )
Prescriptions:
New
cephalexin 500 mg capsule
500 mg PO QID Qty: 28 0RF
cephalexin 500 mg capsule
500 mg PO BID Qty: 14 0RF
Rx Instructions:
start this after QID prescription ends
Continued
Metamucil Fiber Singles 1 PACKET powder in packet
1 packet PO DAILY
dicyclomine 10 MG capsule
10 mg PO TIDPRN PRN (Reason: spasms)
valsartan-hydrochlorothiazide [Diovan HCT] 80-12.5 mg Tablet
1 tab PO DAILY
Centrum Silver Men [id number] mcg Tablet
1 tab PO DAILY
Creon 24,000-76,000 -120,000 unit Capsule,Delayed Release(Dr/Ec)
3 cap PO MEALS
Discharge Orders:
Discharge Patient (As Directed); Ordered 01/29/24
Ordered By: Danielle Swanson
Discharge Date and Time
Discharge Date/Time: 01/29/24 12:38
Print Language: SLOVENIAN
== END 2024-01-29 12:38 | disposition home or self-care (01) | DRG 872 ==
LOC: 3 WEST ACU 14:48
PROVIDERS: Emergency Medicine; Nurse Practitioner Adult Health; Physician Assistant Medical; Student in an Organized Health Care Education/Training Program; ADMITTING PHYSICIAN Hospitalist; ATTENDING PHYSICIAN Internal Medicine; CONSULT PHYSICIAN Internal Medicine Infectious Disease; CONSULT PHYSICIAN Student in an Organized Health Care Education/Training Program; EMERGENCY PHYSICIAN Student in an Organized Health Care Education/Training Program; FAMILY PHYSICIAN Internal Medicine
DX: A41.9 Sepsis, unspecified organism (principal); E87.1 Hypo-osmolality and hyponatremia; Z87.891 Personal history of nicotine dependence; Z11.52 Encounter for screening for COVID-19; I10 Essential (primary) hypertension
CPT/HCPCS: 71046; 74177; 80048; 80053; 81003; 82248; 82962; 83036; 83605; 83690; 84132; 84450; 84460; 85025; 85027; 85610; 87040; 87149; 87186; 87205; 87502; 87811; 97161; 97165; 99285; Q9967

== ENCOUNTER 2024-06-06 11:58 | Day surgery (SDC) | payer OTHER, SELFPAY ==
[2024-06-06] VITALS (10 sets, daily range): BP systolic 144–182; BP diastolic 72–102; BMI 22.0
[2024-06-06 12:43] LABS: Glucose - Point of Care 192 mg/dl (70-99)
[2024-06-06 12:50] LABS: Hematocrit 42.1 % (39.0-52.0); Hemoglobin 14.6 g/dL (13.0-18.0); Mean Corp Hgb Conc. 34.7 g/dL (33.0-37.0); Mean Corpuscular Hgb 31.5 pg (27.0-31.0); Mean Corpuscular Volume 90.9 fL (80.0-94.0); Mean Platelet Volume 10.7 fL (7.4-10.4); Platelet Count 246 10^3/uL (130-400); Red Blood Cell Count 4.63 10^6/uL (4.70-6.10); Red Cell Dist. Width 12.9 % (11.5-14.5); White Blood Cell Count 5.2 10^3/uL (4.8-10.8)
[2024-06-06 12:59] LABS: INR 1.04; PT 13.9 Sec (11.4-14.6)
[2024-06-06 13:00] LABS: ALT (SGPT) 43 U/L (0-50); AST (SGOT) 41 U/L (17-59); Albumin 4.4 g/dl (3.5-5.0); Alkaline Phosphatase 89 U/L (38-126); Blood Urea Nitrogen 23 mg/dl (9-20); Calcium 9.1 mg/dl (8.4-10.2); Carbon Dioxide 23 mmol/L (22-30); Chloride 106 mmol/L (98-107); Estimated Creatinine Clearance 57 ml/min; Glucose 199 mg/dl (70-99); Potassium 3.8 mmol/L (3.5-5.1); Sodium 140 mmol/L (135-145); Total Bilirubin 0.7 mg/dl (0.2-1.3); Total Protein 6.8 g/dl (6.3-8.2); eGFR > 60.00
--- NOTE | 2024-06-06 17:12 | ITS.CL.PACE ---
Human Resources Assistant Manager - Pacemaker Implant
Pacemaker Implant
Procedure Report:
PACEMAKER GENERATOR CHANGE
Date of Procedure: 06/06/2024
Primary Care Provider: Dr. Zach Lemos
PROCEDURES:
1. Removal of dual chamber PPM generator at [facility]
2. Implant of new dual chamber PPM generator
INDICATION FOR PROCEDURE:
1. PPM generator at [facility]
2. Non-reversible symptomatic bradycardia due to sinus node dysfunction.
The patient was prepped and draped in sterile fashion. Lidocaine with epi was used for local anesthesia. An incision was made along the previous incision and the device and leads were carefully dissected from the pocket. Hemostasis was obtained
with electrocautery. The leads were from the device header and tested using an external analyzer. The pocket was liberally irrigated with antibiotic solution. Once testing (see below) showed adequate and stable function, the leads were
connected to the generator header and the leads and generator were placed within the pocket. The pocket was closed in the typical fashion.
EXPLANTED PPM GENERATOR:
Medtronic [id number], SN [id number]
IMPLANTED PPM GENERATOR:
Medtronic
RETAINED LEADS:
RA Medtronic 5076, PJ [id number]
RV Medtronic 5076, SN: [id number], RV apical septum
DEVICE TESTING:
There is stable right atrial and right ventricular pacing sensing and impedance testing.
FINAL PROGRAMMING
Nba Pacing: DDDR 60 - 130 ppm
COMPLICATIONS:
None
CONCLUSIONS:
1. Successful explant of dual chamber permanent pacemaker
2. Successful implant of dual chamber permanent pacemaker
RECOMMENDATIONS:
1. In-Office wound check in 7-10 days.
Copy to:
Dr. Zach Lemos
[2024-06-06] MEDS: DIOVAN 80 MG PO (17:49)
[2024-06-06] MEDS: ORETIC 12.5 MG PO (17:49)
== END 2024-06-06 18:10 | disposition home or self-care (01) ==
LOC: CATH 11:58
PROVIDERS: ATTENDING PHYSICIAN Internal Medicine Cardiovascular Disease; FAMILY PHYSICIAN Internal Medicine
DX: Z45.010 Encounter for checking and testing of cardiac pacemaker pulse generator [battery] (principal); I49.5 Sick sinus syndrome; I10 Essential (primary) hypertension; E11.9 Type 2 diabetes mellitus without complications
CPT/HCPCS: 33228; 80053; 82962; 85027; 85610; 85730; C1785

== ENCOUNTER 2025-02-04 23:09 | Inpatient (IN) | payer OTHER, SELFPAY ==
[2025-02-04 18:20] VITALS: BP 163/98
[2025-02-04 19:00] VITALS: BP 178/85
[2025-02-04 19:08] VITALS: BMI 23.3
[2025-02-04 19:10] LABS: Hematocrit 37.4 % (39.0-52.0); Hemoglobin 12.9 g/dL (13.0-18.0); Mean Corp Hgb Conc. 34.5 g/dL (33.0-37.0); Mean Corpuscular Volume 90.8 fL (80.0-94.0); Nucleated Red Blood Cells % 0 % (-); Platelet Count 232 10^3/uL (130-400); Red Cell Dist. Width 12.6 % (11.5-14.5)
[2025-02-04 19:14] LABS: Urine Character Cloudy (Clear)
[2025-02-04 19:31] LABS: Urine Red Blood Cell >100 /HPF (0-2); Urine Squamous Cell 0-2 /LPF (Few)
[2025-02-04 19:36] LABS: ALT (SGPT) 37 U/L (0-50); AST (SGOT) 34 U/L (17-59); Albumin 4.0 g/dl (3.5-5.0); Alkaline Phosphatase 88 U/L (38-126); Blood Urea Nitrogen 21 mg/dl (9-20); Calcium 9.1 mg/dl (8.4-10.2); Carbon Dioxide 23 mmol/L (22-30); Chloride 106 mmol/L (98-107); Estimated Creatinine Clearance 54 ml/min; Glucose 215 mg/dl (70-99); Lipase < 10 U/L (23-300); Potassium 3.9 mmol/L (3.5-5.1); Sodium 135 mmol/L (135-145); Total Protein 6.7 g/dl (6.3-8.2); eGFR > 60.00
[2025-02-04 20:00] VITALS: BP 176/79
[2025-02-04] MEDS: DILAUDID 0.25 MG IV (20:56)
[2025-02-04] MEDS: ZOFRAN 4 MG IV (20:56)
[2025-02-04] MEDS: NSS 1000 IV (20:56)
[2025-02-04 21:14] VITALS: BP 175/80
--- NOTE | 2025-02-04 21:48 | ED.GENMED ---
History of Present Illness
General
Chief Complaint: Abdominal Pain
Source: patient
Exam Limitations: none
Time Seen by Provider: 02/04/25 20:40
Nursing documentation reviewed up to this point in time: agreed with
History of Present Illness
History of Present Illness:
Patient to ED with complaint of right flank pain. Symptoms started suddenly this evening. States pain has migrated around to the right side of his abdomen. He reports feeling chilled but denies fever. He reports nausea but no vomiting. Brought
to the emergency department by spouse for evaluation.
Past History
Past History
ED Past Medical History: Cancer (Pancreatic, prostate), GERD, HTN, Hypercholesterolemia, IDDM and Other (Pancreatic tumor removed w Whipple procedure 2015)
ED Past Surgical History: Other (Whipple procedure 06/11/2015 at [facility]. 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
Social History
Tobacco: Former smoker
Alcohol: Daily
Drug: None
Personal:
Living: with family
Employment: Employed
Family History
Family History: Other (Noncontributory)
Review of Systems
Review of Systems
Allergies reviewed?: Yes
All Other Systems: ROS reviewed and negative except as documented in HPI and ROS
Constitutional: Reports chills
EENT: Reports no symptoms
Respiratory: Reports no symptoms
Cardiac: Reports no symptoms
ABD/GI: Reports nausea
: Reports flank pain (Right flank pain)
Musculoskeletal: Reports no symptoms
Skin: Reports no symptoms
Neurological: Reports no symptoms
Psychiatric: Reports no symptoms
Phy Exam
General Physical Exam
General Presentation: mild distress
General age: appears stated age
General Skin: warm and dry
General Habitus: normal
General Mental: alert
Gastrointestinal Exam
Gastrointestinal Exam: normal bowel sounds, non tender, soft, no organomegaly, non distended and no cva tenderness
Musculoskeletal Exam
Musculoskeletal Exam: full ROM and neuro vasc intact
Skin Exam
Skin Exam: normal color, warm/dry and no rash
Psychiatric Exam
Psychiatric Exam: normal mood/affect
Course
Orders/Labs/Results
Orders:
Orders
02/04/25 Breakfast
NPO
Allow oral meds: Yes
Allow clear liquids: Sips of Clears
02/04/25 18:08
IV Insert/Care/Rem.- Treatment PRN
02/04/25 19:04
Complete Blood Count/With Diff Urgent
Comprehensive Metabolic Panel Urgent
Lipase Urgent
Urinalysis Reflex To Culture Urgent
Date Specimen was Collected: 02/04/25
Time Specimen was Collected: 18:08
Urine Microscopic Reflex Cult Urgent
Urine Culture Urgent
BETSEY Source: U
Specimen Description:
Date Specimen was Collected: 02/04/25
Time Specimen was Collected: 18:08
02/04/25 20:48
HYDROmorphone [Dilaudid] 0.25 mg IV NOW STA
Ondansetron Injectable [Zofran] 4 mg IV NOW STA
02/04/25 20:49
CT Abd/pel Without Iv Or Oral Urgent
Comment:
Reason For Exam: right flank pain
0.9% Sodium Chloride 1000 ml [Nss] 1,000 ml IV BOLUS
02/04/25 21:58
Cefepime HCl [Maxipime] 2,000 mg IV NOW STA
02/04/25 22:05
UROLOGY CONSULT Urgent
Consulting Provider: Chaitanya Strauss
Was physician already notified: Yes
02/04/25 22:57
Admit/Transfer Patient As Directed
Co-Sign Provider:
Level of Care: Inpatient admission
Assign to:: Medical/Surgical
Physician / Group: Jay
Diagnosis: Nephrolithiasis
Reason for Hospitalization: Nephrolithiasis
Expected length of stay greater than two midnights?: Yes
ELOS- Estimated Length of Stay in days: 2
I certify the patient meets the requirements for IP care: Yes
PRN Pain Medication Management As Directed
May give lesser potent ordered pain med per pt: Yes
preference::
Protocol:: Medication orders for pain may be administered in a
manner that supports deferring to patient preference
when the pt is:
- Requesting an ordered lesser potent pain medication.
Least to most potent pain medications are defined
as: acetaminophen < NSAID < tramadol < opioids
(morphine, oxycodone, hydromorphone).
- Requesting a lesser dose of the same medication IF
ORDERED.
- Requesting a less intrusive route of administration
if both routes are prescribed by the provider (PO <
IV).
02/04/25 22:58
Code Status As Directed
Resuscitation Status: Full Code
02/04/25 23:10
HYDROmorphone [Dilaudid] 0.5 mg IV Q4HPRN PRN
02/04/25 23:57
0.9% Sodium Chloride 1000 ml [Nss] 1,000 ml IV 100 mls/hr
Acetaminophen [Tylenol] 650 mg PO Q4HPRN PRN
Dextrose 50%-Water [Dextrose 50% Syringe] 12.5 grams IV [id number] PRN
Glucagon [GlucaGen] 1 mg IM PRN PRN
Ondansetron Injectable [Zofran] 4 mg IV Q6HPRN PRN
02/04/25 23:57
Activity As Directed
Activity Level: Ambulate
Bedside Glucose Monitoring As Directed
Frequency: AC&HS
Additional Instructions:: Change to q6h if pt on TPN, tube feeding or not eating
Bladder Scan As Directed
Follow Bladder Retention/Intermittent Cath Algorithm?: Yes
PRN if no void in __ hours: 6
Frequency: Per Retention Algorithm
If Bladder Scan Result >: 400
then:: Straight cath
I/O [Intake/ Output] As Directed
Frequency: Per unit guidelines
Pneumatic Compression Sleeves As Directed
Type: Knee high
Straight Cath As Directed
Frequency: Per Retention Algorithm
Additional Instructions: straight cath as needed per acute urinary retention algorithm for 24 hrs
Additional Instructions: for bladder scan greater than 400 mL
Strain Urine As Directed
Vital Signs As Directed
Frequency: Per unit guidelines
Oxygen Therapy [O2 Therapy] [RESP] Routine
Titrate/Wean O2 to maintain O2 sat greater than (%): 94
DX Deep Vein Thrombosis Video Routine
02/05/25 06:00
Basic Metabolic Panel IN AM
Complete Blood Count/No Diff IN AM
Glycohemoglobin (HgbA1c) IN AM
CefTRIAXone [Rocephin] 1,000 mg IV Q24H
02/05/25 07:30
Insulin Aspart Corrective Low [Novolog Flexpen-Low Resistance] See Protocol SC AC
02/05/25 08:00
Tamsulosin [Flomax] 0.4 mg PO DAILY
Valsartan [Diovan] 80 mg PO DAILY
Abnormal Lab Results
02/04/25
19:04
RBC 4.12 L 10^6/uL
(4.70-6.10)
Hgb 12.9 L g/dL
(13.0-18.0)
Hct 37.4 L %
(39.0-52.0)
MCH 31.3 H pg
(27.0-31.0)
MPV 10.6 H fL
(7.4-10.4)
Absolute Lymphs (auto) 0.9 L 10^3/uL
(1.2-3.4)
Neutrophils % 80.9 H %
(42.2-75.2)
Lymphocytes % 11.7 L %
(20.5-51.1)
BUN 21 H mg/dl
(9-20)
Glucose 215 H mg/dl
(70-99)
Lipase < 10 L U/L
(23-300)
Ur Occult Blood Reflex 4+ A
(Negative)
Leukocyte Esterase Rfl 1+ A
(Negative)
Urine RBC >100 A /HPF
(0-2)
Urine WBC (Reflex) 11-15 A /HPF
(0-5)
Urine Bacteria (Reflex) Moderate A
(Negative)
Urine Albumin (Reflex) 3+ A
(Neg - Trace)
02/04/25 19:04
02/04/25 19:04
Vital Signs
Initial and Last Documented VS:
Initial Vital Signs
Temp Pulse Resp BP Pulse Ox
98.2 F 85 18 163/98 99
02/04/25 18:20 02/04/25 18:20 02/04/25 18:20 02/04/25 18:20 02/04/25 18:20
Last Documented Vital Signs
Temp Pulse Resp BP Pulse Ox
98.3 F 92 17 159/86 95
02/05/25 00:10 02/05/25 00:10 02/05/25 00:10 02/05/25 00:10 02/05/25 00:10
*Radiology
Radiology exam reviewed: radiology read reviewed (5 mm obstructing stone at the right UVJ with associated mild right sided hydroureteronephrosis)
*Pulse Oximetry
SaO2: 99
Oxygen Mode of Delivery: Room air
Patient hypoxic: no
*Critical Care Note
Total Time (30-74mins, 75-104mins- exclusive of procedures): Not Applicable
Update Note
Update Note:
Patient to the emergency department with complaint of right flank pain. Symptoms started earlier this evening. He describes pain as sharp, came on suddenly. He denies any fevers but feels chilled. He reports nausea but no vomiting. He has a
prior history of kidney stones but does not recall if this pain is similar. He was sent for CT of abdomen and pelvis. CT confirms 5 mm obstructing stone at the right UVJ with associated mild right sided hydroureteronephrosis. Labs reviewed. WBC
7.5. BUN 21 creat 1.1. UA with +4 occult blood +1 leukocyte urine RBCs greater than 100 WBCs 11-15 with moderate bacteria. IV antibiotics started in department. notified of patient presentation, CT and lab findings. Patient to be
admitted to the hospitalist. Plan is for OR tomorrow for placement of stent. Will start IV antibiotics tonight.
ED Attending Note
-
Portions of this chart may have been created with voice recognition software.� Occasional wrong word or��sound alike� substitutions may have occurred due to the inherent limitations of voice recognition software.
Discharge Plan
Departure
Patient Disposition: Admit
Date of Disposition: 02/04/25
Time of Disposition: 22:04
Presentation/result/management discussed w/ accepting MD/DO: Hospitalist
Patient with high blood pressure during this ER visit?: No
Condition: Fair
Covid-19: Not Applicable
Discharge Problem:
Hydronephrosis with renal calculous obstruction, Acute UTI
Interventions
Interventions:
*General Assessment Last Done: 02/04/25 19:08
*Neglect/Abuse Screening Last Done: 02/04/25 19:08
*ED COVID-19 Vaccine History Last Done: 02/04/25 19:08
*ED Influenza Vaccine History Last Done: 02/04/25 19:08
[facility] Risk Assessment Tool Last Done: 02/04/25 19:08
*Risk Screen - Suicide (C-SSRS) Last Done: 02/04/25 19:08
*Nursing Disposition Last Done: 02/04/25 23:31
OB-Ifrebx-Gfscyzdqzx Assessment Last Done: 02/04/25 19:08
Discharge Date and Time
Discharge Date/Time: 02/04/25 23:56
[2025-02-04 22:00] VITALS: BP 162/72
[2025-02-04 23:00] VITALS: BP 139/75
--- NOTE | 2025-02-04 23:04 | HPS.HSE ---
Family Physician
-
Family Physician: Zach Lemos
Chief Complaint
-
R Flank Pain
History of Present Illness
Patient is an 79y M with PMH significant for pancreatic cancer s/p Whipple, recurrent GNR bacteremia on lifelong abx suppression and DM-II who presents to ED complaining of R flank pain that started around 3-4 PM today. Patient notes pain in the
R flank that was intermittent throughout the afternoon and generally increasing in frequency and severity. He developed nause and had several episodes of 'dry heaves' - prompting him to present to the ED for further evaluation. No chest pain /
dyspnea. No fevers / chills. No urinary symptoms.
Patient has prior h/o kidney stones - requiring cysto / stent in 2021.
Medical History
Past Medical History
Past Medical History: Reports Other
Additional Past Medical History:
Recurrent E. coli Bacteremia
Hypertension
SSS
Diverticular Disease
Duodenal Ulcer / GERD
Insulin Dependent Diabetes Mellitus
Hx Melanoma s/p Excision
Hx Pancreatic CA s/p Whipple
Hx Prostate CA s/p Radiation
Hx Sick Sinus Syndrome s/p Pacemaker
Past Surgical History: Reports Other
Additional Past Surgical History:
Sigmoidectomy
Whipple
Melanoma Resection
PPM Placement
Cysto / Stent
Hernia Repair
ORIF R Hip
Social History
Tobacco: Former Smoker
Alcohol: Occasional (Glass of wine)
Personal:
Living: With Family
Family History
Family History: Not pertinent
Allergies / Home Medications
Allergies reflects when Allergies were last updated in [facility].
Home Medications with original date entered in [facility]
Allergy/Medication List:
Allergies
Allergy/AdvReac Type Severity Reaction Status Date / Time
ramipril Allergy Unknown Verified 06/06/24 12:50
simvastatin Allergy Unknown Verified 06/06/24 12:50
Home Medications
dicyclomine 10 mg capsule 10 mg PO TIDPRN PRN spasms 04/18/20
valsartan 80 mg-hydrochlorothiazide 12.5 mg tablet (Diovan HCT) 1 tab PO DAILY Blood pressure 05/29/22
oseyntli-ib-plgeb 300 mcg-K 60 mcg-lycop 600 mcg-lutein 300 mcg tablet (Centrum Silver Men) 1 tab PO DAILY Supplement 11/09/22
sdzntp-nwyohnpb-ufihkk(pork)24,000-76,000-120,000 unit capsule,del rel (Creon) 2 cap PO MEALS Gastrointestinal Issue 02/15/23
cholecalciferol (vitamin D3) 125 mcg (5,000 unit) tablet (Vitamin D3) 125 mcg PO DAILY 06/06/24
coenzyme Q10 10 mg capsule (Co Q-10) 30 mg PO DAILY 06/06/24
insulin lispro 100 unit/mL subcutaneous pen (Humalog KwikPen (U-100) Insulin) 1 sliding scale dose SC DIRECTED 06/06/24
sildenafil 100 mg tablet 100 mg PO DAILY PRN ED 06/06/24
cephalexin 500 mg capsule 500 mg PO DAILY 02/04/25
Review of Systems
-
History Source: Patient
A 12 point ROS was completed and negative except as noted: Yes
Constitutional: Denies Fever or Chills
Respiratory: Denies Cough or Trouble Breathing
Cardiac: Denies Chest Pain or Palpitations
Abdomen/GI: Reports Abdominal Pain, Nausea and Vomiting; Denies Diarrhea, Constipated, Bloody Stools, Black Stools or Anorexia
: Reports Flank Pain and Dark Urine; Denies Dysuria
Musculoskeletal: Denies Joint Pain or Edema
Neurological: Denies Dizzy or Headache
Psych: Denies Depression or Anxiety
Physical Exam
Vital Signs
Vital Signs
Temp Pulse Resp BP Pulse Ox
98.3 F 71 18 162/72 99
02/04/25 19:30 02/04/25 22:45 02/04/25 22:45 02/04/25 22:00 02/04/25 21:49
Physical Exam
General: Other (79y M in no acute distress.)
HEENT: Moist mucous membranes and PERRLA
Respiratory: Clear; No Wheezes, Rales or Rhonchi
Cardiac: S1/S2 and Regular Rhythm; No Murmur
GI: Soft, Non Tender, Non Distended and Normal Bowel Sounds
Musculoskeletal: No Clubbing, No Cyanosis and No Edema
Neuro: AO x 3
Laboratory Results
-
02/04/25 19:04
02/04/25 19:04
Laboratory Results
Total Bilirubin 0.6 mg/dl (0.2-1.3) 02/04/25 19:04
AST 34 U/L (17-59) 02/04/25 19:04
ALT 37 U/L (0-50) 02/04/25 19:04
Alkaline Phosphatase 88 U/L (38-126) 02/04/25 19:04
Lipase < 10 U/L (23-300) L 02/04/25 19:04
Impression/Plan
-
A/P: Patient is an 79y M with PMH significant for pancreatic cancer s/p Whipple, recurrent E coli bacteremia, DM-II and hypertension who presents to ED complaining of flank pain.
Right Nephrolithiasis
Mild R [place] secondary to the above
- Admit for further evaluation and treatment.
- NPO, IVFs, pain control, tamsulosin, strain urine, etc.
- Urology consulted and tentatively for cysto / stent in AM.
- Empiric abx for now.
- Follow for any new / worsening symptoms.
Benign Hypertension
- Stable. Continue valsartan with holding parameters.
DM-II
- Stable. Patient states that he monitors his glucose but rarely takes and insulin.
- Follow and cover with SSI as needed.
- Update A1C.
Recurrent E coli Bacteremia s/p Whipple
- On lifelong suppression with Keflex - which he states he takes daily (not BID).
- Hold for now while on IV ceftriaxone. Resume on discharge.
Pancreatic Insufficiency
History of Pancreatic Cancer s/p Whipple
- Stable. Creon on hold while NPO.
DVT Prophylaxis: SCDs
Code Status: Full
[2025-02-04] MEDS: MAXIPIME 2000 MG IV (23:05)
[2025-02-04] MEDS: DILAUDID 0.5 MG IV (23:13)
[2025-02-04 23:58] VITALS: BMI 22.6
[2025-02-05] VITALS (8 sets, daily range): BP systolic 116–167; BP diastolic 60–86
[2025-02-05 00:14] LABS: Glucose - Point of Care 152 mg/dl (70-99)
[2025-02-05] MEDS: NSS 1000 IV ×3 (00:33→20:05)
[2025-02-05] MEDS: DILAUDID 0.5 MG IV (04:28)
[2025-02-05] MEDS: STERILE WATER FOR INJECTION 10 ML IV (05:57)
[2025-02-05] MEDS: ROCEPHIN 1000 MG IV (05:57)
[2025-02-05 06:06] LABS: Glucose - Point of Care 119 mg/dl (70-99)
[2025-02-05 06:59] LABS: Hematocrit 33.7 % (39.0-52.0); Hemoglobin 11.4 g/dL (13.0-18.0); Mean Corp Hgb Conc. 33.8 g/dL (33.0-37.0); Mean Corpuscular Volume 92.8 fL (80.0-94.0); Platelet Count 203 10^3/uL (130-400); Red Cell Dist. Width 12.8 % (11.5-14.5)
[2025-02-05 07:35] LABS: Blood Urea Nitrogen 18 mg/dl (9-20); Calcium 8.0 mg/dl (8.4-10.2); Carbon Dioxide 23 mmol/L (22-30); Chloride 109 mmol/L (98-107); Estimated Creatinine Clearance 59 ml/min; Glucose 124 mg/dl (70-99); Potassium 3.8 mmol/L (3.5-5.1); Sodium 137 mmol/L (135-145); eGFR > 60.00
--- NOTE | 2025-02-05 07:59 | W.SUR.PREOP ---
Pre-Operative Surgical Note
-
I have examined this patient prior to the performance of the scheduled procedure.
The patient's condition is unchanged from the time of the current History and
Physical and the patient is able to undergo the scheduled procedure.
cUTI - UA grossly suspicious for infection
Obstructing right UVJ stone w/ hydroureteronephrosis
Plan:
- To OR this AM for cysto + right stent insertion
- Continue empiric IV antibiotics (started in ED)
- UCx pending
- Surgical consent to be signed in preop
[2025-02-05 08:34] LABS: Glycohemoglobin (HgbA1c) 7.4 % (4.0-5.9)
[2025-02-05] MEDS: DIOVAN 80 MG PO (08:43)
[2025-02-05] MEDS: FLOMAX 0.4 MG PO (08:43)
--- NOTE | 2025-02-05 10:16 | W.IMMPOSTOP ---
Surgical Immed Post Op Note
-
Primary Surgeon: Rica
Pre-op Diagnosis: cUTI, obstructing right UVJ stone
Post-op Diagnosis: Same
Procedure Performed: cystoscopy + right stent insertion
Anesthesia Type: LMA
Specimen / Cultures: None/None
Estimated Blood Loss: Negligible
Drains: 4.8Fr x 26 cm JJ right ureteral stent ([employer])
Complications: None
Operative Findings: purulent efflux of urine after stent deployment in right kidney c/w infection, final KUB and cystoscopy confirming appropriate stent position.
Spouse updated post-op.
[2025-02-05 10:25] LABS: Glucose - Point of Care 128 mg/dl (70-99)
[2025-02-05 11:58] LABS: Glucose - Point of Care 140 mg/dl (70-99)
--- NOTE | 2025-02-05 12:05 | PTCARENOTE ---
1050 Pt arrived from PACU. VSS. IVF infusing. Oriented to room. at bedside. Call grubbs with in reach.
--- NOTE | 2025-02-05 12:23 | CM ---
Initial assessment completed with . Patient in OR/recovery, cystoscopy + right stent insertion. Patient lives with his in a 2 story plus basement home with B/B on 2nd and 1/2 bath on 1st, 1 step to enter. [employer] patient was independent in
ADL's and ambulation, drives. No DME. No in-home services. Was in the [place]. No [place] [facility]. No psychiatric hospitalizations. PCP is Dr. Zach Lemos. Pharmacy is [facility] on [facility] in [place]. Discharge POC: Anticipate home with no needs.
[2025-02-05] MEDS: NOVOLOG FLEXPEN-LOW RESISTANCE SC (12:33)
--- NOTE | 2025-02-05 13:39 | W.PN.HOSP.TC ---
Today's Communication/Plan
-
F/u cultures
abx
Assessment / Plan
Assessment / Plan
General: Other (79y M in no acute distress.)
HEENT: Moist mucous membranes and PERRLA
Respiratory: Clear; No Wheezes, Rales or Rhonchi
Cardiac: S1/S2 and Regular Rhythm; No Murmur
GI: Soft, Non Tender, Non Distended and Normal Bowel Sounds
Musculoskeletal: No Clubbing, No Cyanosis and No Edema
Neuro: AO x 3
A/P: Patient is an 79y M with PMH significant for pancreatic cancer s/p Whipple, recurrent E coli bacteremia, DM-II and hypertension who presents to ED complaining of flank pain.
Right Nephrolithiasis
Mild R [place] secondary to the above
- -S/p Cysto and stent placement 02/05 - found to have purulent efflux of urine after stent deployment
Complicated UTI
-cont abx
f/u cultures from urine
Benign Hypertension
- Stable. Continue valsartan with holding parameters.
DM-II
- Stable. Patient states that he monitors his glucose but rarely takes and insulin.
- Follow and cover with SSI as needed.
- Update A1C - 7.4
Recurrent E coli Bacteremia s/p Whipple
- On lifelong suppression with Keflex - which he states he takes daily (not BID).
- Hold for now while on IV ceftriaxone. Resume on discharge.
Pancreatic Insufficiency
History of Pancreatic Cancer s/p Whipple
- Stable. Creon on hold while NPO.
DVT Prophylaxis: HSQ
Code Status: Full
Total time spent on today's encounter was 52 minutes which included time spent in counseling the patient/family regarding diagnosis and treatment plan as listed above, goals of care, and symptom management. Case was discussed with nursing staff,
specialists, and care coordinators/case management. All labs and imaging personally reviewed by me. Remainder the time spent in detailed review of previous records, lab data, imaging, and other medical provider documentation.
Anticipated Discharge: > 48 hours
Subjective/Interval History
-
Date of Service: February 05, 2025
Status post cystoscopy and stent placement
Objective Data
-
Labs:
Laboratory Results
02/05/25
06:18
WBC 6.8
Hgb 11.4 L
Hct 33.7 L
Plt Count 203
Sodium 137
Potassium 3.8
Chloride 109 H
Carbon Dioxide 23
BUN 18
Creatinine 1.0
Glucose 124 H
Calcium 8.0 L
Vital Signs:
Vital Signs
Temp Pulse Resp BP Pulse Ox
97.9 F 70 16 139/69 98
02/05/25 12:50 02/05/25 12:50 02/05/25 12:50 02/05/25 12:50 02/05/25 12:50
I&O
02/04/25 02/05/25 02/06/25
06:59 06:59 06:59
Intake Total 50 / 50
Output Total 250 / 250
Balance -250 / -250 50 / 50
Review of Systems
-
History Source: Patient
All other systems: Not reviewed unless documented
Physical Exam
-
General: No Apparent Distress
HEENT: Normocephalic and Atraumatic
Respiratory: Negative Wheezes
Cardiac: Regular Rhythm and S1/S2
GI: Soft and Nontender
Neuro: AO x 3
Psych: Calm
Data Reviewed
-
Total Time Spent with Patient (in minutes): 41
Diagnostic Radiology: Report Reviewed by me
CT Scan: Report Reviewed by me
Labs: Labs Reviewed by me
[2025-02-05] MEDS: HEPARIN 5000 UNITS SC ×2 (16:28→23:23)
[2025-02-05] MEDS: ZENPEP DELAYED RELEASE CAPSULE 2 CAPSULE PO (16:39)
[2025-02-05] MEDS: TYLENOL 650 MG PO (16:40)
[2025-02-05 17:13] LABS: Glucose - Point of Care 230 mg/dl (70-99)
[2025-02-05] MEDS: NOVOLOG FLEXPEN-LOW RESISTANCE 2 UNITS SC (17:31)
[2025-02-05 21:44] LABS: Glucose - Point of Care 342 mg/dl (70-99)
[2025-02-05] MEDS: NOVOLOG FLEXPEN 4 UNITS SC (22:35)
[2025-02-06 03:09] VITALS: BP 145/69
[2025-02-06 03:50] LABS: Glucose - Point of Care 363 mg/dl (70-99)
[2025-02-06 03:50] LABS: Glucose - Point of Care 299 mg/dl (70-99)
[2025-02-06 03:51] LABS: Glucose - Point of Care 394 mg/dl (70-99)
[2025-02-06 04:56] LABS: Hematocrit 34.6 % (39.0-52.0); Hemoglobin 11.8 g/dL (13.0-18.0); Mean Corp Hgb Conc. 34.1 g/dL (33.0-37.0); Mean Corpuscular Volume 91.5 fL (80.0-94.0); Platelet Count 198 10^3/uL (130-400); Red Cell Dist. Width 12.7 % (11.5-14.5)
[2025-02-06] MEDS: STERILE WATER FOR INJECTION 10 ML IV (05:15)
[2025-02-06] MEDS: ROCEPHIN 1000 MG IV (05:15)
[2025-02-06 05:18] LABS: Blood Urea Nitrogen 22 mg/dl (9-20); Calcium 8.4 mg/dl (8.4-10.2); Carbon Dioxide 19 mmol/L (22-30); Chloride 110 mmol/L (98-107); Estimated Creatinine Clearance 59 ml/min; Glucose 299 mg/dl (70-99); Potassium 4.3 mmol/L (3.5-5.1); Sodium 135 mmol/L (135-145); eGFR > 60.00
[2025-02-06] MEDS: NSS 1000 IV (05:20)
[2025-02-06 07:22] VITALS: BP 161/81
[2025-02-06 08:22] VITALS: BP 161/81
[2025-02-06] MEDS: DIOVAN 80 MG PO (08:43)
[2025-02-06] MEDS: FLOMAX 0.4 MG PO (08:43)
[2025-02-06] MEDS: ZENPEP DELAYED RELEASE CAPSULE 2 CAPSULE PO ×2 (08:44→12:32)
[2025-02-06] MEDS: HEPARIN 5000 UNITS SC ×2 (08:44→15:56)
[2025-02-06] MEDS: NOVOLOG FLEXPEN-LOW RESISTANCE 3 UNITS SC (08:45)
[2025-02-06 08:46] LABS: Glucose - Point of Care 260 mg/dl (70-99)
--- NOTE | 2025-02-06 09:46 | W.PN.URO.CBU ---
Today's Communication / Plan
-
OK to d/c home from urologic standpoint
Advise continuing baseline Cephalexin as per ID recommendations (h/o recurrent E. Coli bacteremia)
F/U w/ Dr. Strauss in 1-2 weeks for preop visit to schedule definite outpatient surgery
Plan for outpatient surgery (right ULS) in ~2-3 weeks
Assessment / Plan
-
Obstructing right ureteral stone
cUTI (based on intraop appearance of urine)
02/05: s/p cystoscopy + right ureteral stent insertion
WBC WNL
Cr WNL
UCx NG
BCx NG
Diagnosis
-
Date of Service: February 06, 2025
-
Patient Diagnosis:
Obstructing right ureteral stone
cUTI (based on intraop appearance of urine)
Post Op Day:
02/05: s/p cystoscopy + right ureteral stent insertion
Subjective
-
Feels well.
Denies dysuria.
Urine clear.
Objective
-
Vital Signs
Temp Pulse Resp BP Pulse Ox
97.8 F 70 16 161/81 98
02/06/25 07:22 02/06/25 08:43 02/06/25 07:22 02/06/25 08:43 02/06/25 07:22
Intake and Output
02/05/25 02/06/25 02/07/25
06:59 06:59 06:59
Intake Total 2210 / 2210
Output Total 250 / 250
Balance -250 / -250 2210 / 2210
Intake:
Oral fluids 960 / 960
IV fluids (Total) 1250 / 1250
Normosol 50 / 50
Output:
Urine, Voided 250 / 250
Other:
How many times incontinent 3
MODERATE amount urine
Number of approximated MODERATE 1
amounts of urine
Laboratory Results
02/06/25 04:38
02/06/25 04:38
Physical Exam
-
General - well developed, well nourished, no acute distress
Abdomen - soft, non-tender, non-distended, no CVAT
- normal
Counseling
-
D/w patient.
D/w spouse.
[2025-02-06] MEDS: METAMUCIL, KONSYL 1 PACKET PO (10:05)
[2025-02-06 11:10] VITALS: BP 153/71
--- NOTE | 2025-02-06 11:16 | CM ---
Chart reviewed and patient to return to home with spouse when stable.
Plan; Home with spouse when stable.
[2025-02-06 11:31] VITALS: BP 153/71
[2025-02-06] MEDS: ZOFRAN 4 MG IV (11:47)
[2025-02-06 11:50] LABS: Glucose - Point of Care 246 mg/dl (70-99)
[2025-02-06] MEDS: DILAUDID 0.5 MG IV (12:31)
[2025-02-06] MEDS: NOVOLOG FLEXPEN-LOW RESISTANCE 2 UNITS SC (12:33)
[2025-02-06] MEDS: TORADOL 30 MG IV (12:48)
--- NOTE | 2025-02-06 13:34 | W.PN.HOSP.TC ---
Addendum entered and electronically signed by Juancho Astorga MD 02/06/25 15:35:
[id number]
Original Note:
Today's Communication/Plan
-
[place]
Follow-up urology outpatient
Transition back to lifelong suppression with cephalexin
Follow-up PCP, urology outpatient
Assessment / Plan
Assessment / Plan
General: Other (79y M in no acute distress.)
HEENT: Moist mucous membranes and PERRLA
Respiratory: Clear; No Wheezes, Rales or Rhonchi
Cardiac: S1/S2 and Regular Rhythm; No Murmur
GI: Soft, Non Tender, Non Distended and Normal Bowel Sounds
Musculoskeletal: No Clubbing, No Cyanosis and No Edema
Neuro: AO x 3
A/P: Patient is an 79y M with PMH significant for pancreatic cancer s/p Whipple, recurrent E coli bacteremia, DM-II and hypertension who presents to ED complaining of flank pain.
Right Nephrolithiasis
Mild R [place] secondary to the above
- -S/p Cysto and stent placement 02/05 - found to have purulent efflux of urine after stent deployment although urine cultures negative
-Resume cephalexin as per ID recs outpt
- Tamsulosin
Benign Hypertension
- Stable. Continue valsartan with holding parameters.
DM-II
- Stable. Patient states that he monitors his glucose but rarely takes and insulin.
- Follow and cover with SSI as needed.
- Update A1C - 7.4
Recurrent E coli Bacteremia s/p Whipple
- On lifelong suppression with Keflex - which he states he takes daily (not BID).
- Resume cephalexin on discharge
Pancreatic Insufficiency
History of Pancreatic Cancer s/p Whipple
- Stable. Creon
DVT Prophylaxis: HSQ
Code Status: Full
More than 30 minutes spent in discharge including
Final examination of the patient
Summarizing hospital stay
Instructions for continuing care to all relevant caregivers
Preparation of discharge records, prescriptions, and referral forms
Total time spent (in minutes): 36
Anticipated Discharge: Today
Subjective/Interval History
-
Date of Service: February 06, 2025
no acute events overnight; urine cultures with no growth
Objective Data
-
Labs:
Laboratory Results
02/06/25
04:38
WBC 9.0
Hgb 11.8 L
Hct 34.6 L
Plt Count 198
Sodium 135
Potassium 4.3
Chloride 110 H
Carbon Dioxide 19 L
BUN 22 H
Creatinine 1.0
Glucose 299 H
Calcium 8.4
Vital Signs:
Vital Signs
Temp Pulse Resp BP Pulse Ox
97.9 F 66 16 153/71 98
02/06/25 11:10 02/06/25 11:10 02/06/25 11:10 02/06/25 11:10 02/06/25 11:14
I&O
02/05/25 02/06/25 02/07/25
06:59 06:59 06:59
Intake Total 2210 / 2210
Output Total 250 / 250
Balance -250 / -250 0 / 2210
Review of Systems
-
History Source: Patient
All other systems: Not reviewed unless documented
Data Reviewed
-
Total Time Spent with Patient (in minutes): 41
Diagnostic Radiology: Report Reviewed by me
CT Scan: Report Reviewed by me
Labs: Labs Reviewed by me
--- NOTE | 2025-02-06 13:47 | W.DS.TRANS ---
DC Summary - [employer]
-
Discharge Instructions:
Discharge Diagnosis/Procedures Obstructing right ureteral stone s/p cystoscopy
+ right ureteral stent insertion
Diet Low Cholesterol,Low Fat,Diabetic, Carb
Controlled
Activity As tolerated
Blood Work cbc and cmp in 1 week with pcp
Others Tests as per urology outpt
Instructions:
Stand-Alone Forms:
Changes to Home Medications: Yes
Discharge Medications:
DC Medications w/original date entered in [employer] [employer] ([facility])
dicyclomine 10 mg capsule 10 mg PO TIDPRN PRN spasms 04/18/20
valsartan 80 mg-hydrochlorothiazide 12.5 mg tablet (Diovan HCT) 1 tab PO DAILY Blood pressure 05/29/22
wewyfdbm-ex-jazxb 300 mcg-K 60 mcg-lycop 600 mcg-lutein 300 mcg tablet (Centrum Silver Men) 1 tab PO DAILY Supplement 11/09/22
knwqbl-jaeblynb-qpmish(pork)24,000-76,000-120,000 unit capsule,del rel (Creon) 2 cap PO MEALS Gastrointestinal Issue 02/15/23
cholecalciferol (vitamin D3) 125 mcg (5,000 unit) tablet (Vitamin D3) 125 mcg PO DAILY Supplement 06/06/24
coenzyme Q10 10 mg capsule (Co Q-10) 30 mg PO DAILY 06/06/24
insulin lispro 100 unit/mL subcutaneous pen (Humalog KwikPen (U-100) Insulin) 1 sliding scale dose SC DIRECTED Diabetes 06/06/24
sildenafil 100 mg tablet 100 mg PO DAILY PRN ED 06/06/24
cephalexin 500 mg capsule 500 mg PO DAILY Infection 02/04/25
tamsulosin 0.4 mg capsule 0.4 mg PO DAILY 30 days #30 caps 02/06/25
Home Medication Changes
tamsulosin 0.4 mg capsule 0.4 mg PO DAILY 30 days #30 caps 02/06/25
Pending Results: No
[2025-02-06 15:15] VITALS: BP 151/73
== END 2025-02-06 16:32 | disposition home or self-care (01) | DRG 661 ==
LOC: 2 SOUTH 23:09
PROVIDERS: Emergency Medicine; Surgery; ADMITTING PHYSICIAN Hospitalist; ATTENDING PHYSICIAN Internal Medicine; EMERGENCY PHYSICIAN Emergency Medicine; FAMILY PHYSICIAN Internal Medicine
PROC: 0T768DZ Dilation of Right Ureter with Intraluminal Device, Via Natural or Artificial Opening Endoscopic (ICD-10-PCS; 2025-02-05)
DX: N13.6 Pyonephrosis (principal); Z87.891 Personal history of nicotine dependence; Z85.07 Personal history of malignant neoplasm of pancreas; I10 Essential (primary) hypertension; E11.9 Type 2 diabetes mellitus without complications; K86.89 Other specified diseases of pancreas; Z79.4 Long term (current) use of insulin
CPT/HCPCS: 74018; 74176; 76000; 80048; 80053; 81003; 81015; 82962; 83036; 83690; 85025; 85027; 87086; 96361; 96374; 96375; 99285; C2617